=== PATIENT | male | born 1955 | race Caucasian/White ===

== ENCOUNTER 2016-07-11 03:40 | Inpatient (IN) | payer MEDICARE, BC ==
[~2016-07-11] VITALS: Ht 185.4 cm; Wt 91.5 kg
[~2016-07-11 03:40] MED LIST: AMBIEN10 MG PO; ASPIRIN325 MG PO; BAYER CHEWABLE81 MG PO; BRILINTA90 MG PO; BUSPAR 15 MG TA15 MG PO; COREG12.5 MG PO; CUBICIN500 MG IV; DIABETA5 MG PO; GLUCOPHAGE500 MG PO; GLYBURIDE5 MG PO; HYDROCODON-ACE1 EAC7 PO; INVOKANA300 MG PO; IPRAT-ALBUT 0.5-3 ML UPD; JANUVIA100 MG PO; LASIX20 MG PO; LIPITOR40 MG PO; LOTREL 10/20 CA1 CAP PO; METFORMIN HCL500 M1 PO; METOPROLOL TART25 MG; MORPHINE SULFAT30 M4 PO; MUCINEX600 MG PO; NIACIN500 MG PO; NIASPAN500 MG PO; OMNICEF300 MG PO; OXYCODONE HCL10 MG PO; PAXIL20 MG PO; PERCOCET 10/3251 TA1 PO; PRAVACHOL20 MG; PRAVACHOL20 MG PO; PROTONIX 40 MG40 MG IV; PROTONIX40 MG PO; SINGULAIR10 MG PO; TOPROL XL25 MG PO; TRIGLIDE160 MG; TRIGLIDE160 MG PO; VALIUM10 MG PO; ZITHROMAX250 MG PO
[2016-07-11 04:29] LABS: BASOPHILS 0.4 % (0.0-2.0); EOSINOPHILS 3.3 % (0-7); HEMATOCRIT 32.4 % (42.0-54.0); HEMOGLOBIN 10.7 g/dL (13.5-17.5); IMMATURE GRANULOCYTES 0.1 % (0-5); LYMPHOCYTES 15.3 % (15-50); MCH 29.4 pg (26.0-34.0); MEAN PLATELET VOLUME 9.2 fL (7.4-10.4); MONOCYTES 7.2 % (2-11); NEUTROPHILS 73.7 % (40-80); PLATELET COUNT 279 10x3/uL (130-400); RBC 3.64 10x6/uL (4.20-6.10); RDW 14.2 % (11.5-14.5)
[2016-07-11 04:51] LABS: ALBUMIN 2.4 g/dL (3.4-5.0); ANION GAP 13.3 mmol/L (8-16); BILIRUBIN - TOTAL 0.2 mg/dL (0.2-1.3); CALCIUM 8.2 mg/dL (8.5-10.1); CARBON DIOXIDE 29.3 mmol/L (21.0-32.0); CREATININE - SERUM 1.8 mg/dL (0.6-1.3); POTASSIUM - SERUM 3.6 mmol/L (3.5-5.1); PROTEIN - SERUM 5.5 g/dL (6.4-8.2)
[2016-07-11 05:00] LABS: TROPONIN-I 0.022 ng/mL (0.000-0.060)
--- NOTE | 2016-07-11 09:40 | NUR ---
PATIENT IS AWAKE, ALERT AND ORIENTED X'S 4. PATIENT DOES NOT APPEAR TO BE IN DISTRESS, PATIENT IS ON ROOM AIR. PATIENT STATED "I FEEL SHORT OF BREATH, I HAVE BEEN FEELING THIS WAY FOR 2 DAYS. I HAVE NOT BEEN ABLE TO SLEEP BECAUSE I FEEL LIKE I CANNOT BREATH." ASSESSMENT COMPLETED PATIENT HAS EDEMA IS BILATERAL LEGS, MOST PROMINENT IN LEFT LEG. PATIENT REQUESTED PAIN MEDICATION THAT HE TAKES CHRONICALLY FOR LEFT SHOULDER PAIN, AND BACK PAIN. CALLED , NOTIFIED HIM OF PATIENTS REPORTED SOB AND EDEMA IN LEGS, AND NOTIFIED HIM OF PATIENT'S REQUEST FOR PAIN MEDICATION. PUT IN ORDERS.
[2016-07-11 09:48] VITALS: BP 189/83; Ht 185.4 cm; Wt 91.5 kg
--- NOTE | 2016-07-11 10:22 | NUR ---
PATIENT STATED IV WAS ITCHING AND BURNING, TRIED TO FLUSH IV WITH SALINE, THERE WAS RESISTANCE. D/C IV WITH CATH INTACT. STARTED IV TO RIGHT FOREARM 20G, X'S 1 ATTEMPT.
[2016-07-11 11:11] VITALS: BP 180/99
--- NOTE | 2016-07-11 11:28 | NUR ---
PATIENT STATED HE DOES NOT KNOW WHAT MEDICATIONS HE TAKES, BUT THAT HIS IS COMING UP SO SHE CAN BRING THEM. CALLED PATIENT'S MERCEDES, SHE SAID SHE WILL BRING ALL OF HIS MEDS SO THAT WE CAN PUT THE LIST IN THE COMPUTER, THEN SHE WILL TAKE THE MEDS BACK WITH HER.
[2016-07-11 13:06] VITALS: BP 180/82
--- NOTE | 2016-07-11 13:28 | NUR ---
SPOKE WITH REGARDING PATIENT'S PAIN, STATED "I AM NOT GIVING HIM ANYTHING EXCEPT FOR THE NORCO-5 BID FOR NOW BECAUSE OF HIS RESPIRATORY STATUS." NOTIFIED HIM OF PATIENT'S CREATININE LEVEL, HE STATED TO CHANGE THE CTA TO A VQ SCAN. PUT IN ORDER. NOTIFIED HIM OF PATIENT'S BP. HE GAVE ORDERS FOR APPRESOLINE 25MG TID. PUT IN THE ORDER. NOTIFIED PATIENT OF WHAT THE DOCTOR SAID. HE STATED HIS PAIN IS AT AN 8/10 RIGHT NOW. OFFERED PATIENT A HOT OR ICE PACK. PATIENT STATED "NO. IT WILL NOT WORK." PATIENT IS LAYING IN BED. HOB 30 DEGREES.
--- NOTE | 2016-07-11 14:38 | NUR ---
PT TRYING TO GET SOME REST, HE STATES HE DIDN'T SLEEP WELL, NO COMPLAINTS AT THIS TIME, BED LOWEST POSITION, CALL LIGHT IN REACH, WILL CONINUE TO MONITOR
[2016-07-11] MEDS ORDERED: OMEPRAZOLE20 M1 PO (15:01)
[2016-07-11] MEDS ORDERED: FUROSEMIDE20 MG PO (15:04)
[2016-07-11] MEDS ORDERED: BAYER ASPIRIN325 MG PO (15:05)
[2016-07-11] MEDS ORDERED: COREG25 MG PO (15:07)
[2016-07-11 16:22] VITALS: BP 156/62
--- NOTE | 2016-07-11 17:15 | NUR ---
SALMA FROM NUCLEAR MEDICINE STATED "THE PATIENT WAS NOT ABLE TO DO THE VQ SCAN, HE REFUSED BECAUSE HE SAYS HE CANNOT LAY FLAT, HE TRIED AND WAS FEELING VERY SHORT OF BREATH, ALSO HE SAID HE IS SLIGHTLY CLOSTORPHOBIC." CALLED , HE SAID TO GIVE THE PATIENT 1MG OF ATIVAN IV. WENT TO RADIOLOGY DEPARTMENT, PATIENT IN ULTRASOUND GETTING VENOUS DOPPLER DONE. EXPLAINED THE PLAN TO THE PATIENT HE AGREED THAT HE WILL TRY. ADMINSTERED 1MG OF ATIVAN.
[2016-07-11 20:00] VITALS: BP 175/77
--- NOTE | 2016-07-11 20:00 | NUR ---
ASSESSMENT WA FLOWSHEET. IV PATENT RT ARM OF NS AT 75CC'S/HR SITE CLEAR. O2 USED FOR COMFORT ONLY OFF AT THIS TIME NO DISTRESS. EYES CLOSED RESPIRATIONS WITH EASE AND UNLABORED. SR UP X2 CALL LIGHT WITHIN REACH SPOUSE AT BEDSIDE.
--- NOTE | 2016-07-11 21:53 | NUR ---
MEDS GIVEN PER MAR. QJSG=382.HUMALOG INSULIN 10 UNITS GIVEN SUBC PER S/S TO LEFT ARM.
[2016-07-12 00:30] VITALS: BP 196/83
--- NOTE | 2016-07-12 00:37 | NUR ---
EYES CLOSED RESPIRATIONS WITH EASE AND UNLABORED.
[2016-07-12 05:00] VITALS: BP 197/77
[2016-07-12 05:42] LABS: CALCIUM 8.1 mg/dL (8.5-10.1); CARBON DIOXIDE 28.1 mmol/L (21.0-32.0); CHLORIDE - SERUM 106 mmol/L (98-107); CKMB 2.3 U/L (0.0-3.6); CREATININE - SERUM 2.2 mg/dL (0.6-1.3); PRO BNP 26783 pg/mL (0-125); SODIUM 142 mmol/L (136-145); eGFR NON AFRICAN AMERICAN 32 mL/min (90-120)
[2016-07-12 05:50] LABS: CALC OSMOLALITY 298 mosm/kg (275-300); GLUCOSE 223 mg/dL (74-106); POTASSIUM - SERUM 4.5 mmol/L (3.5-5.1); TROPONIN-I < 0.017 ng/mL (0.000-0.060); UREA NITROGEN 39 mg/dL (7-18)
--- NOTE | 2016-07-12 06:54 | NUR ---
C/O BACK AND SHOULDER PAIN RATES PAIN LEVEL #8. NORCO TAB ONE PO GIVEN FOR PAIN CONTROL.
--- NOTE | 2016-07-12 07:20 | NUR ---
PATIENT RECEIVED ALERT IN MID REZA POSITION RESTING QUIETLY. RESPIRATIONS EVEN AND UNLABORED. SIDE RAILS UP X2. BED IN LOW POSITION. CALL LIGHT IN REACH.
--- NOTE | 2016-07-12 08:13 | NUR ---
PATIENT SITTING UP IN CHAIR ALERT. NO SIGNS OF DISTRESS NOTED. SCHEDULED MEDICATION ADMINISTERED. DENIES NEEDS. FAMILY AT BEDSIDE. CALL LIGHT IN REACH.
--- NOTE | 2016-07-12 08:55 | NUR ---
UP AMBULATING IN HALLWAY. NO SIGNS OF DISTRESS NOTED. WILL CONTINUE TO MONITOR
[2016-07-12 09:12] VITALS: BP 192/86
--- NOTE | 2016-07-12 11:35 | NUR ---
PATIENT ALERT IN BED. ACCU CHECK 308. INSULIN PER SLIDING SCALE. NO NEEDS VOICED. SIDE RAILS UP X2. BED IN LOW POSITION. CALL LIGHT IN REACH.
--- NOTE | 2016-07-12 12:33 | NUR ---
Patient Name: RAINER FOUNTAIN Admission Status: ER Accout number: [id number] Admission Date: 07-11-2016 : 1955 Admission Diagnosis: Attending: DEEPA Current LOS: 1 Anticipated DC Date: 07-13-2016 Planned Disposition: Home or Self Care Primary Insurance: MEDICARE A & B Discharge Planning Comments: CM MET WITH PATIENT REGARDING D/C NEEDS AND PLANS. PATIENT STATED HE LIVES WITH HIS MERCEDES AND SHE WILL PICK HIM UP AT DISCHARGE. PATIENT STATED HE HAS 3 STEPS W/RAILS TO ENTER HIS HOME AND NO STAIRS INSIDE. PATIENT IS INDEPENDENT WITH HIS CARE AND HAS NO DME AT HOME. PATIENTS PCP IS DR. MILES AND PHARMACY IS [facility] IN [place]. PATIENT STATED HE HAS NOT HAD HOME HEALTH IN THE PAST AND DOES NOT WANT IT AT DISCHARGE. CM WILL CONTINUE TO FOLLOW PATIENT WITH D/C NEEDS AND PLANS. PCP DR[facility] IN [place]- [phone] MERCEDES () [phone] It Service Continuity Supervisor: Jacque Hernandez Is the patient Alert and Oriented? Yes 0 * How many steps to enter\exit or inside your home? 3 W/RAILS 0 * PCP DR. MILES 0 * Pharmacy [facility] IN [place] 0 * Preadmission Environment Home with Family 0 * ADLs Independent 0 * Equipment None 0 * List name and contact numbers for known caregivers / representatives who currently or will assist patient after discharge: MERCEDES () [phone] 0 * Community resources currently utilized None 0 * Additional services required to return to the preadmission environment? Yes 0 * Can the patient safely return to the preadmission environment? Yes 0 * Has this patient been hospitalized within the prior 30 days at any hospital? No 0 Grand Total: 0
[2016-07-12 12:59] VITALS: BP 193/81
--- NOTE | 2016-07-12 13:10 | NUR ---
PATIENT SITTING UP ON SIDE OF BED ALERT. RESPIRATIONS EVEN AND UNLABORED. IV ROCEPHIN INITIATED. IV TO RIGHT FOREARM PATENT. FLUSHES EASY. NO REDNESS OR INFLAMMATION NOTED. SIDE RAILS UP X2. BED IN LOW POSITION. CALL LIGHT IN REACH.
--- NOTE | 2016-07-12 16:34 | NUR ---
SITTING UP ON SIDE OF BED ALERT. ACCU CHECK 289. INSULIN PER SLIDING SCALE. WELL TOLERATED. DENIES NEEDS. BED IN LOW POSITION. CALL LIGHT IN REACH.
[2016-07-12 17:33] VITALS: BP 172/88
--- NOTE | 2016-07-12 18:35 | NUR ---
PATIENT UP AMBULATING IN HALLWAY WITHOUT ASSIST. NO SIGNS OF DISTRESS NOTED. WILL CONTINUE TO MONITOR.
[2016-07-12 21:17] VITALS: BP 187/77
--- NOTE | 2016-07-13 02:00 | NUR ---
PT IN BED WITH NO DISTRESS. RESPIRATIONS ARE EVEN AND UNLABORED. SIDE RAILS X 2. BED LOW. CALL LIGHT IN REACH.
[2016-07-13 05:52] LABS: BASOPHILS 0.1 % (0.0-2.0); EOSINOPHILS 0 % (0-7); HEMATOCRIT 33.1 % (42.0-54.0); HEMOGLOBIN 10.6 g/dL (13.5-17.5); IMMATURE GRANULOCYTES 0.6 % (0-5); LYMPHOCYTES 8.1 % (15-50); MCV 90.4 fL (80.0-100.0); MONOCYTES 6.2 % (2-11); PLATELET COUNT 299 10x3/uL (130-400); RBC 3.66 10x6/uL (4.20-6.10); RDW 14.3 % (11.5-14.5)
[2016-07-13 06:04] LABS: ANION GAP 13.7 mmol/L (8-16); CALCIUM 8.4 mg/dL (8.5-10.1); CARBON DIOXIDE 24.1 mmol/L (21.0-32.0); CREATININE - SERUM 2.3 mg/dL (0.6-1.3)
[2016-07-13 06:06] LABS: POTASSIUM - SERUM 3.8 mmol/L (3.5-5.1)
[2016-07-13] MEDS ORDERED: OMNICEF300 MG PO (06:46)
[2016-07-13] MEDS ORDERED: BROVANA15 MCG/2 M INH (06:47)
[2016-07-13] MEDS ORDERED: IPRAT-ALBUT 0.5-3 ML UPD (06:47)
[2016-07-13] MEDS ORDERED: VIBRAMYCIN 100100 MG PO (06:47)
[2016-07-13] MEDS ORDERED: HYDRALAZINE HCL50 MG PO (06:48)
[2016-07-13] MEDS ORDERED: FLORAJEN3 CAPS460 MG PO (06:49)
[2016-07-13] MEDS ORDERED: PULMICORT0.5 MG/21 UPD (06:49)
[2016-07-13] MEDS ORDERED: JANUVIA50 MG PO (06:50)
[2016-07-13] MEDS ORDERED: STERAPRED DS 1210 MG PO (06:50)
[2016-07-13] MEDS ORDERED: ZANTAC300 MG PO (06:50)
--- NOTE | 2016-07-13 07:30 | NUR ---
PATIENT RECEIVED UP AMBULATING IN ROOM. NO SIGNS OF DISTRESS NOTED. ANTICIPATING D/C HOME. DENIES NEEDS. BED IN LOW POSITION. CALL LIGHT IN REACH.
--- NOTE | 2016-07-13 08:10 | NUR ---
CM REASSESSMENT NOTE: PATIENT IS DISCHARGING HOME TODAY- IS PRESENT AND WILL DRIVE HIM HOME. PATIENT NEEDS A NEBULIZER FOR DISCHARGE AND HE STATED HE DID HAVE ONE AT HOME TO THE NURSE AND MYSELF. HE HAS REFUSED HOME HEALTH OR ANY OTHER NEEDS FOR DISCHARGE.
--- NOTE | 2016-07-13 08:45 | NUR ---
IV D/C WITH CATH TIP INTACT. SITE COVERED WITH GAUZE AND BANDAID. D/C TEACHING PROVIDED. PATIENT STATES UNDERSTANDING. D/C HOME WITH . AMBULATED OFF UNIT
--- NOTE | 2016-07-14 07:33 | HP ---
PATIENT: RAINER FOUNTAIN JR MEDICAL RECORD: [id number] ACCOUNT: [id number] LOCATION:[id number] : [birth year] ADMISSION DATE: 07/11/16 HISTORY AND PHYSICAL EXAMINATION Admission History and Physical HISTORY OF PRESENT ILLNESS: A 60-year-old male presented to the Emergency Room with 2 days of worsening shortness of breath, worse when lying down. Denies chest pain. Denies palpitations. PAST MEDICAL HISTORY: Chronic back pain, diabetes mellitus, hypertension, previous bypass, history of COPD, has inhalers at home, he is non-oxygen dependent, also a prior history of pneumonia. PAST SURGICAL HISTORY: Cholecystectomy, appendectomy, shoulder surgery, right knee surgery, bilateral carpal tunnel, 2 back surgeries. ALLERGIES: No known drug allergies. CURRENT MEDICATIONS: Amlodipine, benazepril, aspirin, atorvastatin, buspirone, Invokana, fenofibrate, glyburide, metoprolol, niacin, pantoprazole, paroxetine, Ambien, also oxycodone and hydrocodone. SOCIAL HISTORY: Every day smoker. REVIEW OF SYSTEMS: GENERAL: No acute change in weight or appetite. HEENT: No cephalgia, visual changes, tinnitus, epistaxis or dysphagia. CARDIOVASCULAR: Denies chest pain, denies palpitations. PULMONARY: Denies hemoptysis, denies night sweats. Admits progressive shortness of breath for the past 2 days, worse this morning with presentation to the ER. GASTROINTESTINAL: Denies hematemesis, hematochezia or melena. GENITOURINARY: Denies dysuria, denies any change in frequency. MUSCULOSKELETAL: No acute changes, does have a history of chronic back pain. ENDOCRINE: History of diabetes. PHYSICAL EXAMINATION: VITAL SIGNS: Temperature 98.4, blood pressure 180/99, heart rate 78, respirations 18, O2 sats 97% with supplemental O2. HEENT: Head normocephalic, atraumatic. Eyes: Pupils equal, round, reactive to light and accommodation. Extraocular muscles are intact. Conjunctiva was not injected. Ears: Canals patent, TMs are intact. Nose: Nares patent without drainage. Throat: No erythema, no exudates. NECK: Supple. No lymphadenopathy, no JVD. HEART: Regular rate and rhythm. No S3, S4, no rub. LUNGS: Bilateral coarse rhonchi, prolonged expiratory phase. ABDOMEN: Soft, nontender. Bowel sounds all 4 quadrants. EXTREMITIES: Present times 4, no edema. NEUROLOGIC: No focal deficits. Cranial nerves II through XII grossly intact. IMAGING: Chest x-ray reported as unremarkable. EKG showed normal sinus rhythm, prolonged QT, QTc is 507. No comparison immediately available, some nonspecific ST changes with downsloping, abnormal EKG. HISTORY AND PHYSICAL [id number] RAINER FOUNTAIN JR LABORATORY DATA: Glucose is 278. D-dimer is elevated at 0.82. ABG shows a pH of 7.533, pCO2 of 33, pO2 of 98. CBC: White count 3.64, hemoglobin 10.7, hematocrit 32.4, platelets 279. Chemistry shows a sodium of 145, potassium 3.6, chloride 106, bicarbonate 29.3, BUN 24, creatinine 1.8, AST is 21, ALT is 20, alkaline phosphatase 43. CK is 191, troponin is 0.022. ASSESSMENT AND PLAN: 1. Acute onset shortness of breath likely exacerbation of chronic obstructive pulmonary disease with the elevated D-dimer and risk factors such as nicotine dependence and known cardiovascular disease. We will obtain a CTA PE protocol. 2. Mildly elevated creatinine. IV fluids. 3. Diabetes mellitus. Hold metformin. Hold other medications. We will change to a sliding scale intermediate resistance. 4. With the exacerbation of chronic obstructive pulmonary disease, possible underlying pneumonia, we will cover with Rocephin 1 gram q.24 and doxycycline p.o. b.i.d., discontinued the Levaquin from the Emergency Room due to QT prolongation. Supportive care. Tanja. TRANSINT:[id number] Voice Confirmation ID: [id number] DOCUMENT ID: [id number] QUETA CLARK DO at 0733 CC: [id number] DICTATION DATE: 07/11/16 1242 FLIGHT CREW SCHEDULER: 07/11/16 1341 DIS IN 07/13/16 [facility] [address] [place] [address]
--- NOTE | 2016-07-22 09:40 | CN ---
PATIENT NAME:RAINER FOUNTAIN JR MEDICAL RECORD: [id number] : [birth year] LOCATION:[facility] ADMIT DATE: 07/11/16 ACCOUNT: [id number] CONSULTING PHYSICIAN: RILEY AMBROSIO MD REFERRING PHYSICIAN: EMMY MILES DO DATE OF CONSULTATION: 07/11/2016 CONSULT REQUESTING PHYSICIAN: Queta Clark DO REASON FOR CONSULTATION: Acute exacerbation of chronic obstructive pulmonary disease, positive D-dimer, rule out deep venous thrombosis and PE. HISTORY OF PRESENT ILLNESS: Mr. Fountain is a 60-year-old gentleman, very well known to me. The patient is sick for the last few days. He is coughing, wheezing and shortness of breath. According to the patient, he is also having noticed swelling of the left lower extremity. There is no pain. REVIEW OF SYSTEMS: CONSTITUTIONAL: He has generalized body aches and pain. There are no fever or chills. HEENT: There is no sinus congestion. RESPIRATORY: As in history of present illness. CARDIOVASCULAR: Negative. GASTROINTESTINAL: Negative. GENITOURINARY: Negative. Other review of the systems are negative. PAST MEDICAL HISTORY: 1. COPD. 2. Continued smoking, nicotine dependence. 3. Hypertension. 4. Diabetes mellitus type 2. 5. Peripheral neuropathy. 6. Coronary artery disease. PAST SURGICAL HISTORY: 1. Cholecystectomy. 2. Appendectomy. 3. Shoulder surgery. 4. Right knee surgery. 5. History of carpal tunnel syndrome. 6. Status post CABG. ALLERGIES: There are no known drug allergies. PRESENT MEDICATIONS: On Calix was reviewed. PERSONAL AND SOCIAL HISTORY: The patient is still smoking every day almost a pack a day. He is a nondrinker. FAMILY HISTORY: Noncontributory. PHYSICAL EXAMINATION: GENERAL: Now, the patient is lying comfortably in bed. He is not in acute distress. CONSULT REPORT [id number] RAINER FOUNTAIN JR VITAL SIGNS: The blood pressure is 180/82, pulse is 78, respirations 18, temperature 98.4 and SPO2 is 98% on room air. HEENT: Conjunctivae are pink. Sclerae nonicteric. NECK: Supple, no JVD. CHEST: The chest excursion is minimal on both sides. There is wheeze on forceful expiration. HEART: Rhythm regular, normal sound, no murmur. ABDOMEN: Soft, bowel sounds present. No hepatosplenomegaly. RECTAL: Deferred. EXTREMITIES: No cyanosis, no clubbing, no pedal edema. SKIN: Warm, normal turgor. CENTRAL NERVOUS SYSTEM: The patient is awake and alert. There are no obvious cranial nerve abnormality. The gait was not tested. There is pitting edema of the left lower extremity. CHEST RADIOGRAPH: There is hyperinflation, no acute infiltrate. OTHER LABORATORY DATA: CBC: The WBC is 8000, hemoglobin 10.7, hematocrit 33.4 and the platelet count is 279. Chemistry: Sodium 145, potassium is 3.6, BUN is 24 and creatinine 1.8. ABG: The pH is 7.53, pCO2 is 33.3, the pO2 is 98 and bicarbonate is 28. IMPRESSION: 1. Acute exacerbation of chronic obstructive pulmonary disease. 2. Acute tracheobronchitis. 3. Elevated D-dimer, rule out thromboembolism. 4. Tobacco dependence syndrome. 5. Diabetes mellitus type 2. RECOMMENDATIONS: 1. The patient will veterans' counselor to quit smoking. 2. Continue Rocephin and doxycycline. 3. Methylprednisolone IV. 4. Albuterol/ipratropium nebulizer. 5. Start Brovana and budesonide nebulizer. 6. Awaiting the ventilation perfusion scan. 7. Check ultrasound of the lower extremities. Dr. Clark, once again thanks for involving me in the care of Mr. Fountain. TRANSINT:[id number] Voice Confirmation ID: [id number] DOCUMENT ID: [id number] RILEY AMBROSIO MD at 0940 CC: QUETA CLARK DO [id number] DICTATION DATE: 07/11/16 1530 ELEVATORS INSPECTOR: 07/11/16 1633 DIS IN 07/13/16 [facility] [address] [place] [address]
== END 2016-07-13 08:52 | disposition home or self-care (01) | DRG 192 ==
LOC: D.ER 03:40 → D.MS 07:33
PROVIDERS: Emergency Medicine; Family Medicine; ADMIT Family Medicine
DX: J44.1 Chronic obstructive pulmonary disease with (acute) exacerbation (principal); J20.9 Acute bronchitis, unspecified; E11.42 Type 2 diabetes mellitus with diabetic polyneuropathy; E11.22 Type 2 diabetes mellitus with diabetic chronic kidney disease; I12.9 Hypertensive chronic kidney disease with stage 1 through stage 4 chronic kidney disease, or unspecified chronic kidney disease; E11.21 Type 2 diabetes mellitus with diabetic nephropathy; N18.9 Chronic kidney disease, unspecified; D50.9 Iron deficiency anemia, unspecified

== ENCOUNTER 2017-03-20 15:17 | Inpatient (IN) | payer MEDICARE, BC ==
[~2017-03-20 15:17] MED LIST changes: +BAYER ASPIRIN325 MG PO; +BROVANA15 MCG/2 M INH; +COREG25 MG PO; +FLORAJEN3 CAPS460 MG PO; +FUROSEMIDE20 MG PO; +HYDRALAZINE HCL50 MG PO; -HYDROCODON-ACE1 EAC7 PO; +HYDROCODONE-APA1 TAB PO; +JANUVIA50 MG PO; +OMEPRAZOLE20 M1 PO; +PULMICORT0.5 MG/21 UPD; +STERAPRED DS 1210 MG PO; +VIBRAMYCIN 100100 MG PO; +ZANTAC300 MG PO
[2017-03-20 16:25] LABS: BASOPHILS 0.1 % (0-2); EOSINOPHILS 0 % (0-7); HEMATOCRIT 27.6 % (42.0-54.0); HEMOGLOBIN 8.8 g/dL (13.5-17.5); IMMATURE GRANULOCYTES 1.1 % (0-5); LYMPHOCYTES 4.3 % (15-50); MCH 28.4 pg (26.0-34.0); MCHC 31.9 g/dL (31.0-37.0); MEAN PLATELET VOLUME 8.9 fL (7.4-10.4); MONOCYTES 3.8 % (2-11); NEUTROPHILS 90.7 % (40-80); PLATELET COUNT 295 10x3/uL (130-400); RDW 14.4 % (11.5-14.5); WBC 10.2 10x3/uL (4.8-10.8)
[2017-03-20 16:45] LABS: ALBUMIN 2.7 g/dL (3.4-5.0); ALKALINE PHOSPHATASE 73 U/L (46-116); ALT (SGPT) 28 U/L (10-68); BILIRUBIN - TOTAL 0.22 mg/dL (0.2-1.3); CALC OSMOLALITY 313 mosm/kg (275-300); CARBON DIOXIDE 30.1 mmol/L (21.0-32.0); CHLORIDE - SERUM 102 mmol/L (98-107); CREATININE - SERUM 3.9 mg/dL (0.6-1.3); POTASSIUM - SERUM 4.8 mmol/L (3.5-5.1); PROTEIN - SERUM 7.1 g/dL (6.4-8.2); SODIUM 139 mmol/L (136-145); UREA NITROGEN 71 mg/dL (7-18); eGFR NON AFRICAN AMERICAN 17 mL/min (90-120)
[2017-03-20 16:47] LABS: GLUCOSE 360 mg/dL (74-106)
[2017-03-20 16:57] LABS: CKMB 4.8 U/L (0.0-3.6); CREATINE KINASE 457 UL (21-232); PRO BNP 24321 pg/mL (0-125)
[2017-03-20 16:59] LABS: TROPONIN-I < 0.017 ng/mL (0.000-0.060)
[2017-03-20 18:54] LABS: CREATINE KINASE 455 UL (21-232)
--- NOTE | 2017-03-20 19:01 | NUR ---
PT ARRIVED TO FLOOR VIA WHEELCHAIR. PT ON ROOM AIR. IV TO LEFT FA. PT C/O SOB. NON PRODUCTIVE COUGH. ID BAND ON. PT IS A&O. AT BEDSIDE. BED AT LOWEST POSITON. CALL HERNANDEZ IN USE/REACH. SIDE RAILS UP X2. WILL CONTINUE TO MONITOR.
[2017-03-20 19:02] LABS: TROPONIN-I < 0.017 ng/mL (0.000-0.060)
[2017-03-20 20:00] VITALS: BP 187/75
--- NOTE | 2017-03-20 20:00 | NUR ---
SPOKE WITH CARE COORDINATION MANAGER TO OBTAIN MEDS THAT MD HAD ORDERED.
--- NOTE | 2017-03-20 20:11 | NUR ---
MET WITH PATIENT AND . REVIEWED ORDERS. REVIEWED HOME MEDS. PT SAYING THERE ARE MULTIPLE MEDS HE WILL HAVE TO HAVE TO BE ABLE TO SLEEP/BE COMFORTABLE TONIGHT. WILL HAVE TO CONTACT MD DRYING CAN WORKER.
[2017-03-20 20:56] VITALS: BP 187/75; BMI 25.7
--- NOTE | 2017-03-20 21:55 | NUR ---
WHILE CONFERRING WITH PATIENT AND , MEDS WERE PUT IN COMPUTER PER DR MILES. UI SOFTWARE DEVELOPER PULLED ALL MEDS AND PT MEDICATIONS ADMINISTERED AT THIS TIME. FSBS 493, GAVE 20N UNITS OF HUMALOG. PT IS ON SOLUMEDROL PLUS HE IS EATINGA Libratone MEAL. WILL MONITOR.
[2017-03-21] VITALS: BP 153/54
[2017-03-21 04:00] VITALS: BP 192/73
[2017-03-21 05:14] LABS: BASOPHILS 0 % (0-2); EOSINOPHILS 0 % (0-7); HEMATOCRIT 27.2 % (42.0-54.0); HEMOGLOBIN 8.5 g/dL (13.5-17.5); IMMATURE GRANULOCYTES 1.1 % (0-5); LYMPHOCYTES 3.5 % (15-50); MCHC 31.3 g/dL (31.0-37.0); MCV 89.5 fL (80.0-100.0); MEAN PLATELET VOLUME 9.1 fL (7.4-10.4); MONOCYTES 1.5 % (2-11); NEUTROPHILS 93.9 % (40-80); PLATELET COUNT 312 10x3/uL (130-400); RBC 3.04 10x6/uL (4.20-6.10); RDW 14.5 % (11.5-14.5)
[2017-03-21 05:20] LABS: WBC 6.7 10x3/uL (4.8-10.8)
[2017-03-21 05:30] VITALS: BP 192/73
[2017-03-21 05:42] LABS: CALC OSMOLALITY 327 mosm/kg (275-300); CALCIUM 8.7 mg/dL (8.5-10.1); CARBON DIOXIDE 29.2 mmol/L (21.0-32.0); CHLORIDE - SERUM 104 mmol/L (98-107); CREATININE - SERUM 4.1 mg/dL (0.6-1.3); MAGNESIUM - SERUM 2.1 mg/dL (1.8-2.4); PHOSPHOROUS 5.5 mg/dL (2.5-4.9); POTASSIUM - SERUM 5.1 mmol/L (3.5-5.1); SODIUM 142 mmol/L (136-145); UREA NITROGEN 82 mg/dL (7-18); eGFR NON AFRICAN AMERICAN 16 mL/min (90-120)
[2017-03-21 05:47] LABS: GLUCOSE 453 mg/dL (74-106)
--- NOTE | 2017-03-21 07:15 | NUR ---
RECIEVED REPORT ONPATIENT, PATIENT IS ALERT AND ORIENTED AT THIS TIME. PATIENT IS SR ON MONITOR WITH A RATE OF 84. IS AT BEDSIDE. PATIENT DENIES ANY NEEDS OR COMPLAINTS. BED IS LOW AND LOCKED. CALL LIGHT IN REACH. CPOC
--- NOTE | 2017-03-21 07:16 | NUR ---
PT SEEN BY DR MILES. MADE AWARE OF ELEVATED BLOODSUGARS AND THAT HIS SBPS HAVE ALSO BEEN >180 THE LAST SEVERAL READINGS. HAS REVIEWED MEDS AND SAID ONCE PATIENT STARTS HIS ORAL HYPOGLYCEMIC THEN HIS BLOOD SUGARS WILL BE BETTER. REPORT GIVEN TO ONCOMING RN. SHE WILL HAVE TO CLARIFY WITH DR MILES WHAT ORAL HYPOGLYCEMIC HE WAS REFERRING TOO, HE WROTE NO ORDERS TO CONTINUE ANY.
[2017-03-21 08:00] VITALS: BP 182/77
--- NOTE | 2017-03-21 09:00 | NUR ---
MORNING MEDICATIONS GIVEN WITH NO ISSUES. PATIENT DENIES ANY NEEDS. CPOC
--- NOTE | 2017-03-21 10:29 | NUR ---
PATIENT BP- 189/72. 10MG OF HYDRALAZINE GIVEN. WILL MONITOR. CPOC
[2017-03-21 11:16] LABS: CKMB 2.7 U/L (0.0-3.6); CREATINE KINASE 345 UL (21-232); TROPONIN-I 0.023 ng/mL (0.000-0.060)
--- NOTE | 2017-03-21 11:53 | NUR ---
PATIENT FSBS 300, 10 UNITS OF HUMALOG GIVEN.
[2017-03-21 11:58] VITALS: BMI 25.6
--- NOTE | 2017-03-21 12:24 | NUR ---
PATIENT SITTING UP IN CHAIR EATING LUNCH . DENIES ANY NEEDS. CPOC
[2017-03-21 12:45] LABS: CHOL - HDL RATIO 3.5 ratio (2.3-4.9); COMPLEMENT C4 25.3 mg/dL (17.4-52.2); LDL-HDL RATIO 1.9 ratio (1.5-3.5)
[2017-03-21 13:12] LABS: HEMOGLOBIN A1C 8.4 % (4.8-6.0)
--- NOTE | 2017-03-21 14:36 | NUR ---
PATIENT AMBULATING AROUND THE FLOOR, STATED HE WAS GOING TO WALK AROUND BECAUSE HE IS GOING STIR CRAZY IN THE ROOM. CPOC
[2017-03-21 16:00] VITALS: BP 168/68
--- NOTE | 2017-03-21 17:00 | NUR ---
PATIENT SITTING UP IN BED EATING DINNER. DENIES ANY NEEDS. CPOC
--- NOTE | 2017-03-21 17:45 | NUR ---
PATIENT AMBULATING HALLWAYS. CPOC
[2017-03-21 18:26] LABS: APPEARANCE CLEAR (CLEAR); BILIRUBIN NEGATIVE (NEGATIVE); COLOR YELLOW (YELLOW); CREATININE - URINE 38.8 mg/dL (30-125); GLUCOSE 1000 mg/dL (NEGATIVE); KETONE NEGATIVE (NEGATIVE); NITRITE NEGATIVE (NEGATIVE); PRO/CRE RATIO URINE 15.7 mg/g; PROTEIN 1+ mg/dL (NEGATIVE); UROBILINOGEN NORMAL (NORMAL)
--- NOTE | 2017-03-21 18:37 | NUR ---
PATIENT FSBS WAS CRITICAL, WAITING ON LAB TO DRAW FOR RESULT. CPOC
[2017-03-21 19:00] VITALS: BP 181/77
--- NOTE | 2017-03-21 19:00 | NUR ---
PAGED , TO NOTIFIY OF CRITICAL GLUCOSE. CPOC
--- NOTE | 2017-03-21 19:16 | NUR ---
SPOKE WITH DR GUILLEN, HE ORDERED TO GIVE 20 UNITS OF HUMALOG NOW, AND TO RECHECK IN 1 HOUR, AND FOLLOW SLIDING SCALE. HE ALSO ORDERED TO CHANGE TO FSBS Q4HOUR. WILL CHANGE AND PASS ON IN REPORT. CPOC
--- NOTE | 2017-03-21 19:39 | NUR ---
RECEIVED REPORT, WILL ASSUME CARE OF PT, PT RECEIVING BREATHING TREATMENT, BED IS LOW, SRX2, CALL LIGHT IN REACH, AT BEDSIDE, WILL CONTINUE PLAN OF CARE
[2017-03-21 19:55] LABS: CKMB 3.5 U/L (0.0-3.6); CREATINE KINASE 426 UL (21-232); TROPONIN-I 0.019 ng/mL (0.000-0.060)
--- NOTE | 2017-03-21 21:13 | NUR ---
SPOKE WITH DR MARX BS WAS 522 WAS TOLD TO GIVE 30UNITS AND RECHECK 1 HR, UNTIL UNDER 300, FOLLOW SLIDING SCALE
--- NOTE | 2017-03-21 21:58 | NUR ---
BLOODSUGAR 509- PT WANTS TO WAIT ON INSULIN UNTIL NEXT CHECK
[2017-03-22] VITALS: BP 137/58
[2017-03-22 04:00] VITALS: BP 177/69
--- NOTE | 2017-03-22 07:05 | NUR ---
RECEIVED REPORT. ASSUMED CARE OF PATIENT. PATIENT SITTING UP TO CHAIR AT BEDSIDE. ALERT/ORIENTED. RESP EVEN AND UNLABORED. NO DISTRESS. CALL LIGHT WITHIN REACH. NO DISTRESS.
--- NOTE | 2017-03-22 07:20 | NUR ---
PT RESTING IN BED. BLOOD SUGAR FINALLY DOWN AND HAS RESPONDED TO THE INSULIN GIVEN. CPOC.
[2017-03-22 08:00] VITALS: BP 196/84
--- NOTE | 2017-03-22 11:13 | NUR ---
PATIENT UP AMBULATING IN ROOM. DENIES NEEDS. RESP EVEN AND UNLABORED. NO DISTRESS.
[2017-03-22 11:24] VITALS: BP 164/78
--- NOTE | 2017-03-22 11:50 | NUR ---
FSBS 250. 8 UNITS HUMALOG ADMINISTERED AT THIS TIME. NO DISTRESS.
--- NOTE | 2017-03-22 11:59 | NUR ---
NEW ORDER FOR EPOGEN RECEIVED. NOT AVAILABLE FROM [facility]. AWAITING PHARMACY TO BRING MEDICATION TO UNIT.
[2017-03-22] MEDS ORDERED: FLUTICASONE PRO16 GM NASAL (12:01)
[2017-03-22] MEDS ORDERED: OMEPRAZOLE40 MG PO (12:02)
[2017-03-22] MEDS ORDERED: SINGULAIR10 MG PO (12:02)
[2017-03-22] MEDS ORDERED: LOPRESSOR25 MG PO (12:14)
[2017-03-22] MEDS ORDERED: CRESTOR10 MG PO (12:15)
[2017-03-22] MEDS ORDERED: NORVASC10 MG PO (12:16)
[2017-03-22] MEDS ORDERED: MONODOX100 MG PO (12:19)
[2017-03-22] MEDS ORDERED: PREDNISONE20 MG PO (12:21)
[2017-03-22 13:04] LABS: % SATURATION 28 % (15-55); IRON 69 ug/dl (35-150); TOTAL IRON BIND CAPACITY 246 ug/dl (260-445); UNSAT IRON BIND CAPACITY 177 ug/dl (150-375)
[2017-03-22 13:16] LABS: ANA REFLEX - DBL STRANDED DNA <1 IU/mL (0-9); ANA REFLEX - DIRECT Negative (Negative)
[2017-03-22 13:17] LABS: ANION GAP 12.7 mmol/L (8-16); CALCIUM 8.3 mg/dL (8.5-10.1); CARBON DIOXIDE 28.3 mmol/L (21.0-32.0)
[2017-03-22 13:44] LABS: ERYTHROCYTE SEDIMENTATION RATE 65 mm/hr (0-20)
[2017-03-22 14:22] LABS: SPE - A/G RATIO 0.9 (0.7-1.7); SPE - ALBUMIN 2.8 g/dL (2.9-4.4); SPE - ALPHA-1 GLOBULIN 0.3 g/dL (0.0-0.4); SPE - BETA GLOBULIN 1.1 g/dL (0.7-1.3); SPE - GAMMA GLOBULIN 0.7 g/dL (0.4-1.8); SPE - M-SPIKE Not Observed g/dL (Not Observed); SPE - TOTAL PROTEIN 5.9 g/dL (6.0-8.5)
[2017-03-22 16:00] VITALS: BP 170/76
--- NOTE | 2017-03-22 16:34 | NUR ---
FSBS 301. 12 UNITS HUMALOG ADMINISTERED PER SLIDING SCALE.
[2017-03-22 21:28] VITALS: BP 161/58
[2017-03-23 02:07] VITALS: BP 170/75
--- NOTE | 2017-03-23 03:00 | NUR ---
PATIENT UNABLE TO SLEEP, UP WALKING AROUND IN ROOM. DENIES ANY PAIN, DIZZINESS OR DISTRESS. CALL LIGHT WITHIN REACH.
[2017-03-23 04:15] LABS: BASOPHILS 0 % (0-2); EOSINOPHILS 0.1 % (0-7); HEMATOCRIT 26.6 % (42.0-54.0); HEMOGLOBIN 8.5 g/dL (13.5-17.5); IMMATURE GRANULOCYTES 1.3 % (0-5); LYMPHOCYTES 13.6 % (15-50); MCH 28.3 pg (26.0-34.0); MCV 88.7 fL (80.0-100.0); MEAN PLATELET VOLUME 8.9 fL (7.4-10.4); MONOCYTES 7.7 % (2-11); NEUTROPHILS 77.3 % (40-80); PLATELET COUNT 291 10x3/uL (130-400); RDW 14.9 % (11.5-14.5); WBC 9.5 10x3/uL (4.8-10.8)
[2017-03-23 05:01] LABS: ALBUMIN 2.1 g/dL (3.4-5.0); BILIRUBIN - TOTAL 0.14 mg/dL (0.2-1.3); CALCIUM 8.3 mg/dL (8.5-10.1); CREATININE - SERUM 3.9 mg/dL (0.6-1.3); PROTEIN - SERUM 5.7 g/dL (6.4-8.2)
--- NOTE | 2017-03-23 05:20 | NUR ---
PT RESTING COMFORTABLY AT THIS TIME, EYES CLOSED, RESPIRATIONS EVEN AND UNLABORED. CONTINUE TO MONITOR CLOSELY.
[2017-03-23 05:25] VITALS: BP 122/74
--- NOTE | 2017-03-23 07:15 | NUR ---
REPORT RECEIVED. RR EVEN AND UNLABORED. CONSTRUCTION MGR AT BEDSIDE OBTAINING VS. PT DENIES NEEDS AT THIS TIME. ASSESSMENT PERFORMED, WILL CTM.
[2017-03-23 08:00] VITALS: BP 175/55
--- NOTE | 2017-03-23 08:24 | NUR ---
PTS BP THIS MORNING IS 175/55. WILL GIVE MORNING BP MEDS AND RECHECK BP IN 1-2 HRS. IF IT IS STILL HIGH, WILL GIVE PRN HYDRALIZINE. WILL CTM.
--- NOTE | 2017-03-23 10:35 | NUR ---
PTS BP IS CURRENTLY 172/71. WILL GIVE PRN HYDRALIZINE AND CTM.
--- NOTE | 2017-03-23 11:30 | NUR ---
PTS BP IS NOW 149/63 SINCE PRN BP MED. WILL CTM.
[2017-03-23 12:00] VITALS: BP 149/63
--- NOTE | 2017-03-23 14:10 | NUR ---
PT C/O ACID REFLUX. REPORTS NOT GETTING HIS ZANTAC AT NIGHT. WILL CALL DR. DOTY REGARDING PT CONCERN. WILL CTM.
--- NOTE | 2017-03-23 14:24 | NUR ---
SPOKE TO DR. DOTY REGARDING PTS ZANTAC NOT BEING ON EMAR. GAVE VERBAL RESTART HOME DOSE. WILL CTM.
--- NOTE | 2017-03-23 18:30 | NUR ---
PT RESTING QUIELTY, RR EVEN AND UNLABORED. PT DENIES NEEDS AT THIS TIME. WILL GIVE REPORT ON PT CONDITION FOR THE DAY.
--- NOTE | 2017-03-23 20:30 | NUR ---
PT AWAKE, ALERT, ORIENTED, WANTING TO BE SL SINCE HIS IV ANTIBIOTIC IS FINISHED. PT DENIES ANY NEEDS. FAMILY AT BEDSIDE. CONTINUE TO MONITOR CLOSELY.
--- NOTE | 2017-03-23 20:56 | NUR ---
PT WALKING WITH SPOUSE TO [employer]. WILL NOTIFY ME WHEN HE RETURNS TO HIS ROOM FOR HIS 21:00 MEDICATIONS AND INSULIN.
[2017-03-23 22:06] VITALS: BP 149/52
--- NOTE | 2017-03-23 23:43 | NUR ---
24 HOUR URINE STARTED @ 23:00 03/23/17 PER ORDER. PT AND NOTIFIED, EDUCATION PROVIDED ON 24 HOUR URINE, PURPOSE, COLLECTION, AND QUESTIONS ANSWERED. FIRST URINE HAS BEEN DISCARDED. PT AND VERBALLY STATE THEY UNDERSTAND AND WILL LET US KNOW WHEN PT VOIDS IN URINAL SO WE CAN TRANSFER IT INTO THE 24 HOUR URINE ORANGE COLLECTION JUG.
[2017-03-24 01:54] VITALS: BP 168/88
[2017-03-24 05:04] LABS: BASOPHILS 0 % (0-2); EOSINOPHILS 0 % (0-7); HEMATOCRIT 29.2 % (42.0-54.0); HEMOGLOBIN 9.3 g/dL (13.5-17.5); IMMATURE GRANULOCYTES 2.8 % (0-5); LYMPHOCYTES 4.8 % (15-50); MCH 28.4 pg (26.0-34.0); MCHC 31.8 g/dL (31.0-37.0); MEAN PLATELET VOLUME 9.3 fL (7.4-10.4); MONOCYTES 3.5 % (2-11); NEUTROPHILS 88.9 % (40-80); RBC 3.28 10x6/uL (4.20-6.10); RDW 14.8 % (11.5-14.5); WBC 10.1 10x3/uL (4.8-10.8)
[2017-03-24 05:08] LABS: ANION GAP 16.4 mmol/L (8-16); CALCIUM 7.9 mg/dL (8.5-10.1); CARBON DIOXIDE 22.8 mmol/L (21.0-32.0); CREATININE - SERUM 3.7 mg/dL (0.6-1.3); POTASSIUM - SERUM 4.2 mmol/L (3.5-5.1)
[2017-03-24 05:10] LABS: PLATELET COUNT 353 10x3/uL (130-400)
--- NOTE | 2017-03-24 06:10 | NUR ---
IV TO LEFT FOREARM INFILTRATED WHEN ADMINISTERING PRN HYDRALAZINE. IV REMOVED WITH CATH TIP INTACT.
[2017-03-24 06:17] VITALS: BP 197/80
--- NOTE | 2017-03-24 07:36 | NUR ---
PT LAYING TO LEFT SIDE WITH FAMILY MEMBER AT BEDSIDE. DENIES NEEDS WILL CONT TO MONITOR
[2017-03-24 08:00] VITALS: BP 164/77
[2017-03-24 08:19] LABS: FOLATE (FOLIC ACID) - SERUM 6.5 ng/mL (>3.0)
--- NOTE | 2017-03-24 08:30 | NUR ---
STUDENT NURSE SITED PT PIV TO LEFT FA 20 G X1 STICK. SALINE LOCKED DSNG ADHERED TO SKIN SWAB CAPS IN PLACE.
--- NOTE | 2017-03-24 09:42 | NUR ---
24 HOUR URINE IS IN PROGRESS, BEING KEPT ON ICE. WILL BE READY TO COLLECT AT 2300 TONIGHT.
[2017-03-24 11:19] LABS: HEPATITIS C ANTIBODY <0.1 (0.0-0.9)
[2017-03-24 12:00] VITALS: BP 158/70
[2017-03-24 13:14] LABS: ERYTHROPOIETIN 112.6 mIU/mL (2.6-18.5)
--- NOTE | 2017-03-24 13:26 | NUR ---
PT SITTING UP ON SIDE OF BED. FAMILY AT BEDSIDE. WILL CONT TO MONITOR
[2017-03-24 16:00] VITALS: BP 169/73
--- NOTE | 2017-03-24 19:56 | NUR ---
PT LYING IN BED WITH UPDRAFT MASK IN PLACE FROM RT. FAMILY IS AT BEDSIDE. PT DENIES ANY NEEDS. I HAVE ASKED PT TO NOTIFY ME ANY TIME HE LEAVES THIS FLOOR. PT AND HAVE AGREED TO DO SO. DR. DOMINGUEZ IS IN ROOM NOW WITH PT. NO NEEDS AT THIS TIME. CONTINUE TO MONITOR CLOSELY.
[2017-03-24 20:10] VITALS: BP 134/74
[2017-03-25 00:34] VITALS: BP 190/77
--- NOTE | 2017-03-25 00:49 | NUR ---
PT CAME TO ME C/O EPISTAXIS AND REQUESTING TO HAVE HIS B/P CHECKED. 190/77 WAS HIS B/P AT THAT TIME. PRN HYDRALAZINE 10MG IV GIVEN X 1 ORDERED. I DID GIVE PT A TURKEY SANDWICH AND CARTON OF MILK PER PTS REQUEST WELL AFTER ADMINSTERING PTS INSULIN @ 00:00. PTS NOSE BLEED HAS STOPPED WITHOUT INTERVENTION FROM ME. PT IS IN NO ACUTE DISTRESS. WILL CONTINUE TO MONITOR PT CLOSELY.
[2017-03-25 01:15] LABS: CREATININE - URINE 41.9 mg/dL (30-125)
[2017-03-25 01:17] LABS: PROTEIN - URINE 535.7 mg/dL (0.0-11.9)
[2017-03-25 01:28] LABS: CREATININE - SERUM 3.7 mg/dL (0.6-1.3)
--- NOTE | 2017-03-25 03:16 | NUR ---
PT AWAKE, ALERT, ORIENTED, WALKING AROUND UNIT TO GET A CUP OF COFFEE. PT HAS NOT HAD ANY MORE NOSE BLEEDS AND DENIES ANY NEEDS AT THIS TIME. CONTINUE TO MONITOR PT CLOSELY.
--- NOTE | 2017-03-25 03:47 | NUR ---
PT DECLINED A SNACK AFTER CHECKING HIS FSBS OF 114. PT STATES HE FEELS WNL AND DOES NOT NEED ANYTHING AT THIS TIME. CONTINUE TO MONITOR CLOSELY.
[2017-03-25 04:32] VITALS: BP 173/73
[2017-03-25 05:55] LABS: BASOPHILS 0 % (0-2); EOSINOPHILS 0.1 % (0-7); HEMATOCRIT 27.3 % (42.0-54.0); HEMOGLOBIN 8.6 g/dL (13.5-17.5); IMMATURE GRANULOCYTES 3.7 % (0-5); LYMPHOCYTES 3.9 % (15-50); MCH 27.7 pg (26.0-34.0); MCHC 31.5 g/dL (31.0-37.0); MCV 88.1 fL (80.0-100.0); MEAN PLATELET VOLUME 9.1 fL (7.4-10.4); MONOCYTES 5.4 % (2-11); NEUTROPHILS 86.9 % (40-80); PLATELET COUNT 286 10x3/uL (130-400); RDW 14.7 % (11.5-14.5); WBC 10.7 10x3/uL (4.8-10.8)
[2017-03-25 06:32] LABS: ANION GAP 15.2 mmol/L (8-16); CALCIUM 8.1 mg/dL (8.5-10.1); CARBON DIOXIDE 23.1 mmol/L (21.0-32.0); CREATININE - SERUM 3.7 mg/dL (0.6-1.3); MAGNESIUM - SERUM 1.7 mg/dL (1.8-2.4); PHOSPHOROUS 5.3 mg/dL (2.5-4.9); POTASSIUM - SERUM 4.3 mmol/L (3.5-5.1)
--- NOTE | 2017-03-25 07:32 | NUR ---
PT LAYING FLAT IN BED SLEEPING NO S/S DISTRESS NOTED RR EVEN AND UNLABORED WILL CONT TO MONITOR
[2017-03-25] MEDS ORDERED: OMNICEF300 MG PO (07:33)
[2017-03-25] MEDS ORDERED: VIBRAMYCIN 100100 MG PO (07:34)
[2017-03-25] MEDS ORDERED: GLIMEPIRIDE4 MG PO (07:37)
[2017-03-25 08:56] VITALS: BP 164/68
[2017-03-25] MEDS ORDERED: HYDRALAZINE HC100 MG PO (09:40)
--- NOTE | 2017-03-25 10:23 | NUR ---
WENT OVER DC PAPERWORK WITH PT PT VERBALIZES UNDERSTANDING, PT WAS GIVEN AND TAUGHT ABOUT CKD, DIALYSIS, AND DIET PER THEIR REQUEST. DC PIV WITH CATH TIP INTACT DC TELE AND RETURNED TO CHARGE MASTER SPECIALIST. PT WHEELED HIM OUT TO HER CAR.
[2017-03-25 11:18] LABS: SPE - A/G RATIO 0.9 (0.7-1.7); SPE - ALBUMIN 2.5 g/dL (2.9-4.4); SPE - ALPHA-1 GLOBULIN 0.2 g/dL (0.0-0.4); SPE - ALPHA-2 GLOBULIN 0.9 g/dL (0.4-1.0); SPE - BETA GLOBULIN 0.9 g/dL (0.7-1.3); SPE - GAMMA GLOBULIN 0.7 g/dL (0.4-1.8); SPE - M-SPIKE Not Observed g/dL (Not Observed); SPE - TOTAL PROTEIN 5.2 g/dL (6.0-8.5)
[2017-03-25 11:18] LABS: UPE RAND - ALBUMIN 53.8 % (()); UPE RAND - ALPHA 2 GLOBULIN 8.3 % (())
--- NOTE | 2017-04-01 08:19 | DS ---
PATIENT:RAINER FOUNTAIN JR :51 MEDICAL RECORD: [id number] DISCHARGE SUMMARY ADMISSION DATE: 03/20/17 DISCHARGE DATE: 03/25/17 DATE OF ADMISSION: 03/21/2017 DATE OF DISCHARGE: 03/25/2017 ADMISSION DIAGNOSES: Diabetes, anemia, chronic obstructive pulmonary disease, uncontrolled hypertension, ygcpu-oe-kalwdyx renal failure. DISCHARGE DIAGNOSES: Evndp-ol-yndbpya renal failure, hypertension, diabetes, exacerbation of chronic obstructive pulmonary disease, anemia. CONSULTS: Nephrology, hematology, pulmonology. PROCEDURES: The patient had an unremarkable echocardiogram. HOSPITAL COURSE: The patient was admitted to the Emergency Room with worsening shortness of breath, had been seen by pulmonology, he had signs of exacerbation of COPD and CHF as well as worsening renal failure, was afebrile, was hypertensive, and creatinine had bumped to 4.1. Consults were made, testing is in progress, recommendations for outpatient renal biopsy when the patient stabilizes. Patient had a steroid-induced diabetes, medications started, adjusted. The patient has been cleared for discharge and further workup as outpatient by ____ specialist. The patient is anxious to go home and followup is arranged. The patient is discharged in stable condition. Agree with assessment by specialists. PHYSICAL EXAMINATION: VITAL SIGNS ON DISCHARGE: Temp 98.8, blood pressure is 173/73, heart rate 72, respirations 18, O2 sats 95% on room air. GENERAL: Alert, oriented, no distress. Again, anxious to go home and will follow up with Dr. Wagner within the next week. We will follow up with pulmonology, nephrology, and cardiology. DISCHARGE MEDICATIONS: Per med rec. Please see chart for details of this complex case. TRANSINT:[id number] Voice Confirmation ID: [id number] DOCUMENT ID: [id number] QUETA CLARK DO at 0819 CC: [id number] DICTATION DATE: 03/25/17 0745 ENERGY SCHEDULER: 03/25/17 1016 DIS IN 03/25/17 [facility] [address] [place] [address]
--- NOTE | 2017-04-04 13:13 | EC ---
PATIENT:RAINER FOUNTAIN JR DATE OF SERVICE: 03/20/17 SEX: M MEDICAL RECORD: [id number] DATE OF : 51 LOCATION:D.M2 D.210 AGE OF PATIENT: 61 ADMISSION DATE: 03/20/17 REFERRING PHYSICIAN: INTERPRETING PHYSICIAN: NGUYEN CRAWFORD MD ECHOCARDIOGRAM REPORT ECHO CHARGES 4 ECHO COMPLETE CLINICAL DIAGNOSIS: CHF ECHOCARDIOGRAPHIC MEASUREMENTS (adult normal given) AC root (d.<3.7cm) 3.8 cm LV Septum d (<1.2 cm> 1.3 cm Valve Excursion 2.2 cm LV Septum (systole) 1.9 cm Left Atria (s.<4.0cm> 2.8 cm LVPW d(<1.2cm) 1.2 cm RV (d.<2.3cm) 2.5 cm LVPW (sytole) 2.3 cm LV diastole(<5.6CM) 6.8 cm MV E-F(>70mm/sec) cm LV systole 3.5 cm LVOT Diameter 2.1 cm MV exc.(>10mm) cm Est.ejection fraction (50-75%) % Pericardial Effusion N DOPPLER: LVIT cm/sec A 109 cm/sec E 135 cm/sec LA cm/sec RVSP 20.2 mmHg LVOT 135 cm/sec AOP1/2T m/s Asc. Ao 189 cm/sec RVOT 73.0 cm/sec RA cm/sec PA 116 cm/sec AV Gradient Peak 14. mmHg AV Mean 7.2 mmHg AV Area 2.2 cm MV Gradient Peak 13.0 mmHg MV Mean 3.5 mmHg MV Area cm COMMENTS: Repair Operator: Usama [place] Continuous Improvement Specialist: 3 Dr. De La Cruz TAPE# PACS DATE OF SERVICE: 03/21/2017 Adequate 2D echo, color flow, spectral Doppler, and M-mode. LVH present. LV internal dimensions are normal. Wall motion is normal. EF is greater than 55%. Aortic valve is tricuspid. No stenosis by Doppler interrogation. The left atrium is normal. Mitral valve shows no prolapse. Trace MR. Right-sided chamber is grossly normal. Trace TR. TRANSINT:[id number] Voice Confirmation ID: [id number] DOCUMENT ID: [id number] 03/25/2017 Edited to correct date of service, dmm. ECHOCARDIOGRAM REPORT [id number] RAINER FOUNTAIN JR, GREGORY A MD at 1313 CC: [id number] DICTATION DATE: 03/22/17 1353 TOWERMAN: 03/22/17 1445 DIS IN 03/25/17 [facility] [address] [place] [address]
== END 2017-03-25 10:24 | disposition home or self-care (01) | DRG 291 ==
LOC: D.ER 15:17 → D.M2 18:04 → D.SDCHOLD 03-21 14:36 → D.M2 03-21 14:38
PROVIDERS: Family Medicine; Internal Medicine Nephrology; Legal Medicine; ADMIT Family Medicine
DX: I13.0 Hypertensive heart and chronic kidney disease with heart failure and stage 1 through stage 4 chronic kidney disease, or unspecified chronic kidney disease (principal); I50.23 Acute on chronic systolic (congestive) heart failure; J44.1 Chronic obstructive pulmonary disease with (acute) exacerbation; N17.9 Acute kidney failure, unspecified; J44.0 Chronic obstructive pulmonary disease with (acute) lower respiratory infection; J98.11 Atelectasis; J20.9 Acute bronchitis, unspecified; N18.9 Chronic kidney disease, unspecified; E11.22 Type 2 diabetes mellitus with diabetic chronic kidney disease; Z79.4 Long term (current) use of insulin; E11.40 Type 2 diabetes mellitus with diabetic neuropathy, unspecified; I25.10 Atherosclerotic heart disease of native coronary artery without angina pectoris; K21.9 Gastro-esophageal reflux disease without esophagitis; J30.9 Allergic rhinitis, unspecified; D63.1 Anemia in chronic kidney disease; D50.9 Iron deficiency anemia, unspecified; F17.200 Nicotine dependence, unspecified, uncomplicated; E78.5 Hyperlipidemia, unspecified; Z95.5 Presence of coronary angioplasty implant and graft; Z95.1 Presence of aortocoronary bypass graft

== ENCOUNTER → 2017-04-01 12:10 | Outpatient (CLI) | payer MEDICARE, BC ==
[2017-03-21 11:58] VITALS: BMI 25.6
[~2017-04-01 12:10] MED LIST changes: +ATARAX 25 MG TA25 MG PO; +CRESTOR10 MG PO; +DIPROLENE AF 0.50 GM TOPICAL; +FLUTICASONE PRO16 GM NASAL; +GLIMEPIRIDE4 MG PO; +HYDRALAZINE HC100 MG PO; +LOPRESSOR25 MG PO; +METOLAZONE5 MG PO; +MONODOX100 MG PO; +NORVASC10 MG PO; +OMEPRAZOLE40 MG PO; +PREDNISONE20 MG PO; +PULMICORT0.5 MG/21 INH; +ULTRAM50 MG PO
== END | disposition home or self-care (01) ==
LOC: D.US 12:10
DX: I12.9 Hypertensive chronic kidney disease with stage 1 through stage 4 chronic kidney disease, or unspecified chronic kidney disease (principal)

== ENCOUNTER 2017-04-26 07:21 | Day surgery (SDC) | payer MEDICARE, BC ==
[~2017-04-26] VITALS: Ht 190.5 cm; Wt 86.5 kg
[~2017-04-26 07:21] MED LIST changes: -ATARAX 25 MG TA25 MG PO; -DIPROLENE AF 0.50 GM TOPICAL; -METOLAZONE5 MG PO; -PULMICORT0.5 MG/21 INH; -ULTRAM50 MG PO
[2017-04-26 08:21] LABS: BASOPHILS 0.9 % (0-2); EOSINOPHILS 1.9 % (0-7); HEMATOCRIT 28.4 % (42.0-54.0); HEMOGLOBIN 8.8 g/dL (13.5-17.5); IMMATURE GRANULOCYTES 2.2 % (0-5); LYMPHOCYTES 10.9 % (15-50); MCH 28.1 pg (26.0-34.0); MCV 90.7 fL (80.0-100.0); MEAN PLATELET VOLUME 8.5 fL (7.4-10.4); MONOCYTES 8.5 % (2-11); NEUTROPHILS 75.6 % (40-80); PLATELET COUNT 322 10x3/uL (130-400); RBC 3.13 10x6/uL (4.20-6.10); WBC 7.8 10x3/uL (4.8-10.8)
[2017-04-26 08:40] LABS: ANION GAP 12.6 mmol/L (8-16); CALCIUM 8.6 mg/dL (8.5-10.1); CARBON DIOXIDE 27.9 mmol/L (21.0-32.0); POTASSIUM - SERUM 5.5 mmol/L (3.5-5.1)
[2017-04-26 09:03] LABS: APTT 29.8 SECONDS (22.8-39.4); INR 0.94 (0.85-1.17); PROTIME 12.4 SECONDS (11.6-15.0)
[2017-04-26] MEDS ORDERED: PULMICORT0.5 MG/21 INH (10:30)
[2017-04-26] MEDS ORDERED: BROVANA15 MCG/2 M INH (10:30)
[2017-04-26] MEDS ORDERED: COREG25 MG PO (10:32)
[2017-04-26] MEDS ORDERED: FLUTICASONE PRO16 GM NASAL (10:35)
[2017-04-26] MEDS ORDERED: TRIGLIDE160 MG PO (10:35)
[2017-04-26] MEDS ORDERED: FUROSEMIDE20 MG PO (10:36)
[2017-04-26 11:40] VITALS: Ht 190.5 cm; Wt 86.5 kg
--- NOTE | 2017-04-26 13:45 | NUR ---
ANESTHESIA BLOCK DONE TO LEFT ARM, SEE ANESTHESIA NOTES
[2017-04-26] MEDS ORDERED: ULTRAM50 MG PO ×2 (14:13→15:43)
--- NOTE | 2017-04-26 16:00 | NUR ---
DISCHARGE INSTRUCTIONS REVIEWED WITH PATIENT AND SPOUSE. DISCHARGED HOME VIA WHEELCHAIR WITH SPOUSE
--- NOTE | 2017-05-07 15:06 | OP ---
PATIENT NAME: RAINER FOUNTAIN JR MEDICAL RECORD: [id number] :51 LOCATION:[facility] ADMISSION DATE: SURGEON: IRENE EDMONDSON MD DATE OF OPERATION: 04/26/2017 REFERRING PHYSICIAN: Dr. Padilla. PREOPERATIVE DIAGNOSIS: Chronic kidney disease stage V. POSTOPERATIVE DIAGNOSIS: Chronic kidney disease stage V. SURGEON: Irene Edmondson MD OPERATION PERFORMED: Creation of a Janak-type proximal radial artery to median antebrachial vein AV fistula with runoff via the cephalic vein in the arm. PREOPERATIVE NOTE: Mr. Fountain is a 61-year-old white male with hypertension, diabetes, and chronic kidney disease in anticipation of his requiring hemodialysis, he is brought to the operating room at this time with the intent of creating an AV fistula in his left arm. Preoperative vein mapping demonstrated a patent cephalic vein, but with multiple branches and it was thought to probably not be a good conduit for fistula. The basilic vein may be better. The patient's operation was conducted under nerve block and general anesthesia per STAFF SERVICES MANAGER, and the nerve block hopefully will provide vasodilatation and an ultrasound exam in the OR may be very helpful in telling us where to create the fistula. DESCRIPTION OF PROCEDURE: Under anesthesia in supine position, the patient's left arm was prepped and draped in a sterile manner. Indeed, he did get good vasodilatation from his block, I applied a [place] drain as a proximal venous tourniquet and topical nitroglycerin paste in addition, I examined him with a duplex ultrasound and noted that the cephalic vein was patent from the wrist to the deltopectoral groove, but there were an excessive number of tributaries and I noted that the median antebrachial vein which was part of the runoff from the cephalic at the wrist was large and was located in close apposition to the proximal radial artery at about the junction of the upper and middle thirds of the forearm. Above this, the median antebrachial vein, median yuryital vein and cephalic vein were all patent and I elected to do a proximal radial artery fistula. I made a longitudinal incision in the forearm exposing the vein and dissecting it from surrounding structures. The deep or perforating vein was ligated with 2-0 Vicryl and closed with a clip and the vein dissected distally to bifurcation. Deeper dissection then exposed the proximal radial artery. The 2 vessels were occluded and controlled and approximated side to side with 2 doubly looped Silastic tapes. The vein was opened at a distance of about 6 mm and I attempted to pass a coronary artery dilator distally, but this was not very successful and I did not want to be any more aggressive than I had been for fear of injuring the proximal vein and so I abandoned further attempts at vein valve disruption in order to provide a bidirectional outflow. The vein was flushed proximally with heparinized saline and treated with topical papaverine. A corresponding arteriotomy was made and the radial artery was flushed proximally and distally with heparinized saline and a rfjy-gz-rpae anastomosis was then performed with running 7-0 Prolene. Upon completion of the anastomosis and release of the occluding loops, excellent flow was established immediately in the fistula proximally and in the radial artery above and below the anastomosis. The suture line was hemostatic. There was no wound bleeding. The OPERATIVE REPORT [id number] RAINER FOUNTAIN JR wound was irrigated with Ancef/gentamicin solution and then closed with interrupted inverted 3-0 Vicryl and running intracuticular 4-0 Monocryl and Dermabond glue. It was dressed with Maxorb Ag, Tegaderm and Cavilon skin prep. The patient was awakened and taken to the recovery room in stable condition with a good thrill and bruit over the new fistula. PLAN: He will be allowed to go home today to continue his same medications and diet. The patient takes Brilinta chronically. He has been off of it for several days preop and indeed there was no unusual coagulopathic bleeding for which I am thankful. I will have him go back on his Brilinta tomorrow. He is to return to see me in my office for wound check and dressing change next week. I have left a prescription for tramadol 50 mg 20 tablets, he can take one p.o. q.4 hours p.r.n. for pain. TRANSINT:[id number] Voice Confirmation ID: [id number] DOCUMENT ID: [id number] IRENE EDMONDSON MD at 1506 CC: JESSIE PADILLA MD [id number] DICTATION DATE: 04/26/17 1432 MAINTENANCE ENGINEER OIL FIELD: 04/26/17 1512 [facility] 04/26/17 [facility] [address] [place] [id number]
== END 2017-04-26 16:00 | disposition home or self-care (01) ==
LOC: D.OPS 07:21
PROVIDERS: Internal Medicine Nephrology
DX: E11.22 Type 2 diabetes mellitus with diabetic chronic kidney disease (principal); I12.0 Hypertensive chronic kidney disease with stage 5 chronic kidney disease or end stage renal disease; N18.5 Chronic kidney disease, stage 5; Z01.812 Encounter for preprocedural laboratory examination

== ENCOUNTER 2017-06-08 14:53 | Inpatient (IN) | payer MEDICARE, BC ==
[~2017-06-08] VITALS: Ht 190.5 cm; Wt 89.3 kg
--- NOTE | ~2017-06-08 | HEMODYNAMI ---
PATIENT:RAINER FOUNTAIN JR MEDICAL RECORD: [id number] : 51 LOCATION:[address] ADMISSION DATE: 06/08/17 Generatedon:06/10/20179:50 Patient name: RAINER FOUNTAIN Patient #: [id number] SSN: : Date of study: 06/10/2017 Page: Of Hemodynamic Procedure Report Patient Data Patient Demographics Procedure consent was obtained First Name: RAINER Gender: Male Last Name: АЛЕКСАНДР Suffix: [facility] Initial: Javi : 1955 Patient #: [id number] Age: 61 year(s) Race: Additional ID: [id number] Contact details Address: [address] [place] [address] State: [place] City: [place] Zip code: [address] Past Medical History History of disease Date Diagnosis Comments CAD Allergies: No known allergies Admission Admission Data Admission Date: 06/08/2017 Admission Time: 20:20 Room #: [facility]9 Weight (lbs.): 198.42 Weight (kg.): 90 Lab Results Lab Result Date: 06/10/2017 Lab Result Time: 8:00 Biochemistry Name Units Result Min Max BUN mg/dl 63 --(----)-* 7 18 Creatinine mg/dl 4.6 --(----)-* 0.6 1.3 CBC Name Units Result Min Max Hemoglobin g/dl 10.3 *-(----)-- 13.5 17.5 Procedure Procedure Types Cath Procedure Diagnostic Procedure LHC Coronaries w/Grafts PCI Procedure AMI/SVG/WOOL PRESSER PTCA or Stent SVG-BMS/MARIAM Initial Miscellaneous Procedures Moderate Sedation up to 15 minutes Procedure Description Procedure Date Procedure Date: 06/10/2017 Procedure Start Time: 9:30 Procedure End Time: 9:49 Procedure Staff Name Function Brandon Cassidy MD Performing Physician Manas Ibarra RT Monitor Vicky Abrams RT Scrub Brien Smyth RN Nurse Procedure Data Cath Procedure Fluoroscopy Diagnostic fluoroscopy Total fluoroscopy Time: 4.8 time: 4.8 min min Diagnostic fluoroscopy Total fluoroscopy dose: 373 dose: 373 mGy mGy Contrast Material Contrast Material Type Amount (ml) Isovue 300 67 Entry Location Entry Primary Successful Side Size Upsize Upsize Entry Closure Succes sful Closure Location (Fr) 1 (Fr) 2 (Fr) Remarks Device Remarks Femoral Right 5 Fr 6 Fr Exoseal artery Short Estimated blood loss: 10 ml Diagnostic catheters Device Type Used For End Catheter Placement MULTIPACK JL 4.0 5Fr Procedure catheter MULTIPACK 3DRC 5Fr Procedure catheter DIAGNOSTIC AR 1 MOD 5Fr Procedure catheter ([id number]) Procedure Complications No complications Procedure Medications Medication Administration Route Dosage Oxygen NC 2 l/min Lidocaine 2% added to field 20 Heparin Flush Bag added to field 2 bags (1000units/500ml NS) 0.9% NaCl I.V. 100 ml/hr Versed I.V. 1 mg Fentanyl I.V. 50 mcg Versed I.V. 1 mg Fentanyl I.V. 50 mcg Versed I.V. 1 mg Fentanyl I.V. 50 mcg Versed I.V. 1 mg Fentanyl I.V. 50 mcg Heparin Bolus I.V. 4000 units Integrilin (Bolus I.V. 7.9 ml 2mg/ml) Brilinta P.O. 180 mg Hemodynamics Rest HGB: 10.3 (g/dl) Heart Rate: 74 (bpm) Snapshots Pre Cath Intra NCS Post Cath Vital Signs Time Heart Resp SPO2 etCO2 NIBP (mmHg) Rhythm Pain Sedation Rate (ipm) (%) (mmHg) Status Level (bpm) 9:11:18 74 14 100 36.8 190/94(162) NSR 0 (11) 10(A) , No pain 9:15:51 73 16 98 37.6 200/92(150) NSR 0 (11) 10(A) , No pain 9:20:19 72 17 98 40.6 186/88(144) NSR 0 (11) 10(A) , No pain 9:24:41 70 16 97 45.1 167/83(131) NSR 0 (11) 9(A) , No pain 9:29:07 68 15 98 15.7 164/77(126) NSR 0 (11) 9(A) , No pain 9:33:31 68 14 97 36 160/74(134) NSR 0 (11) 9(A) , No pain 9:37:54 67 16 97 0 158/73(128) NSR 0 (11) 9(A) , No pain 9:42:08 66 15 97 35.3 149/73(119) NSR 0 (11) 9(A) , No pain 9:46:26 68 15 96 40.6 149/74(111) NSR 0 (11) 10(A) , No pain Medications Time Medication Route Dose Verified Delivered Reason Notes Effectiveness by by 9:09:55 Oxygen NC 2 Brandon Buffie used for l/min Khanh Smyth RN procedure 9:10:02 Lidocaine 2% added 20ml Brandon Brandon for local to vial Khanh Cassidy MD anesthetic field 9:10:09 Heparin Flush added 2 Brandon Brandon used for Bag to bags Khanh Cassidy MD procedure (1000units/500ml field NS) 9:10:35 0.9% NaCl I.V. 100 Brandon Buffie Per physician ml/hr Khanh Smyth RN 9:21:33 Versed I.V. 1 mg Brandon Buffie for sedation Khanh Smyth RN 9:21:38 Fentanyl I.V. 50 Brandon Buffie for sedation mcg Khanh Smyth RN 9:24:12 Versed I.V. 1 mg Brandon Buffie for sedation Khanh Smyth RN 9:24:16 Fentanyl I.V. 50 Brandon Buffie for sedation mcg Khanh Smyth RN 9:27:34 Versed I.V. 1 mg Brandon Buffie for sedation Khanh Smyth RN 9:27:38 Fentanyl I.V. 50 Brandon Buffie for sedation mcg Khanh Smyth RN 9:32:57 Versed I.V. 1 mg Brandon Buffie for sedation Khanh Smyth RN 9:33:01 Fentanyl I.V. 50 Brandon Buffie for sedation mcg Khanh Smyth RN 9:38:24 Heparin Bolus I.V. 4000 Brandon Buffie for verifie d units Khanh Smyth RN anticoagulation with dr cassidy 9:40:24 Integrilin I.V. 7.9 Brandon Buffie for wasted (Bolus 2mg/ml) ml Khanh Smyth RN antiplatelet 2.1 ml therapy of vial 9:49:12 Brilinta P.O. 180 Brandon Tesfaye for mg Khanh Smyth RN antiplatelet therapy Procedure Log Time Note 8:08:07 Time tracking: Regular hours 8:08:11 Plan of Care:Hemodynamics will remain stable., Cardiac rhythm will remain stable., Comfort level will be maintained., Respiratory function will remain adequate., Patient/ family verbilizes understanding of procedure., Procedure tolerated without complication., Recovers from procedure without complications.. 8:08:43 Lab Result : BUN 59 mg/dl 8::43 Lab Result : Creatinine 4.2 mg/dl 8::43 Lab Result : Hemoglobin 8.1 g/dl 8:08:56 Dr. Cassidy is aware of labs. 8:14: Lab Result : BUN 63 mg/dl 8:14:10 Lab Result : Hemoglobin 10.3 g/dl 8:14:10 Lab Result : Creatinine 4.6 mg/dl 8:45:55 Manas Ibarra RT(R) sent for patient. Start room use. 9:06:43 Patient received from PCU to CCL 3 Alert and oriented. Tansferred to table in Supine position. 9:06:44 Warm blankets applied, and darion hugger turned on for patient comfort. 9:06:45 Correct patient and procedure confirmed by team. 9:06:46 Signed procedure consent form obtained from patient. 9:06:47 ECG and BP/O2 sat monitors applied to patient. 9:09:55 Oxygen 2 l/min NC was administered by Brien Smyth RN; used for procedure; 9:10:02 Lidocaine 2% 20ml vial added to field was administered by Brandon Cassidy MD; for local anesthetic; 9:10:03 Vital chart was started 9:10:09 Heparin Flush Bag (1000units/500ml NS) 2 bags added to field was administered by Brandon Cassidy MD; used for procedure; 9:10:35 0.9% NaCl 100 ml/hr I.V. was administered by Brien Smyth RN; Per physician; 9:15:46 Baseline sample Acquired. 9:15:50 Rhythm: sinus rhythm 9:15:53 Full Disclosure recording started 9:16:02 H&P Date Dictated: 06/08/2017 Within 30 days and on chart.. 9:16:03 Pre-procedure instructions explained to patient. 9:16:03 Pre-op teaching completed and patient verbalized understanding. 9:16:04 Family in waiting room. 9:16:06 Patient NPO since Midnight. 9:16:07 Is the patient allergic to Iodine/contrast media? No. 9:16:09 Is patient on blood thinner?No 9:16:11 Patient diabetic? Yes. 9:16:12 If diabetic: On Metformin? No 9:16:14 Previous problem with sedation/anesthesia? No ? 9:16:15 Snore? Yes 9:16:16 Sleep apnea? No 9:16:17 Deviated septum? No 9:16:17 Opens mouth fully? Yes 9:16:18 Sticks out tongue? Yes 9:16:20 Airway obstruction? No ? 9:16:21 Dentures? No ? 9:16:24 Pre procedure: right dorsailis pedis pulse 1+ Palpable, but thready & weak; easily obliterated 9:16:27 Patient pain scale 0/10 ?. 9:16:40 PT HAS A RESERVE LEFT ARM 9:16:47 IV patent on arrival in right forearm with 0.9% NaCl at O. 9:16:49 Lab results completed and on chart. 9:16:52 Right groin area was prepped with chlora-prep and draped in sterile fashion 9:16:53 Alarms reviewed by R. N. 9:16:53 Sharps counted by scrub and verified by R.N. 9:16:57 Use device set Femoral Dx 9:17:00 Tegaderm 4 x 4 ([id number]) opened to sterile field. 9:17:01 ACIST Manifold (31495) opened to sterile field. 9:17:01 ACIST Hand Control (88606) opened to sterile field. 9:17:03 ACIST Syringe (76602) opened to sterile field. 9:17:04 Bag Decanter (2002S) opened to sterile field. 9:17:04 Medline Cath Pack ([id number]) opened to sterile field. 9:17:04 SHEATH 5FR [place] ([id number]) opened to sterile field. 9:17:05 DIAGNOSTIC WIRE .035 260cm J wire (996915) opened to sterile field. 9:17:08 DIAGNOSTIC Multipack 5Fr catheter set (HC7297) opened to sterile field. 9:17:09 PERCUTANEOUS ENTRY 19GA needle opened to sterile field. 9:18:51 --------ALL STOP TIME OUT------ 9:18:52 Final Timeout: patient, procedure, and site verified with staff and physician. All members of the team are in agreement. 9:18:55 Right groin site verified by team. 9:18:58 Physical assessment completed. ASA score P 2 - A patient with mild systemic disease as per Brandon Cassidy MD. 9:19:01 Sedation plan: IV Moderate Sedation Medication:Versed, Fentanyl 9:21:33 Versed 1 mg I.V. was administered by Brien Smyth RN; for sedation; 9:21:38 Fentanyl 50 mcg I.V. was administered by Brien Smyth RN; for sedation; 9:24:12 Versed 1 mg I.V. was administered by Brien Smyth RN; for sedation; 9:24:16 Fentanyl 50 mcg I.V. was administered by Brien Smyth RN; for sedation; 9:27:34 Versed 1 mg I.V. was administered by Brien Smyth RN; for sedation; 9:27:38 Fentanyl 50 mcg I.V. was administered by Brien Smyth RN; for sedation; 9:30:51 Procedure started. 9:30:54 Local anesthetic to right femoral artery with Lidocaine 2% by Brandon Cassidy MD.INITIAL ACCESS ONLY 9:31:57 Patient Weight : 198.42 lbs 9:32:57 Versed 1 mg I.V. was administered by Brien Smyth RN; for sedation; 9:33:01 Fentanyl 50 mcg I.V. was administered by Brien Smyth RN; for sedation; 9:33:12 A 5 Fr sheath was inserted into the Right Femoral artery 9:33:36 A MULTIPACK JL 4.0 5Fr catheter was advanced over the wire and used for Procedure. 9:33:48 LCA angiography performed. 9:33:54 Catheter removed. 9:34:41 A MULTIPACK 3DRC 5Fr catheter was advanced over the wire and used for Procedure. 9:35:49 URENA to LAD angiography performed. 9:36:07 RCA angiography performed. 9:36:22 Catheter removed. 9:36:29 A DIAGNOSTIC AR 1 MOD 5Fr catheter ([id number]) was advanced over the wire and used for Procedure. 9:38:24 Heparin Bolus 4000 units I.V. was administered by Brien Smyth RN; for anticoagulation; verified with dr cassidy 9:39:00 SVG to Diag angiography performed. 9:39:26 Skip graft to distal CIRC. 9:39:41 Catheter removed. 9:40:24 Integrilin (Bolus 2mg/ml) 7.9 ml I.V. was administered by Brien Smyth RN; for antiplatelet therapy; wasted 2.1 ml of vial 9:41:42 INFLATOR Merit BasixCompak (JB7931) opened to sterile field. 9:41:43 SHEATH 6FR [place] (PDR366) opened to sterile field. 9:41:43 WHISPER 190cm wire ([id number]) opened to sterile field. 9:41:49 GUIDE 6FR AR 2.0 catheter ([id number]) opened to sterile field. 9:42:02 Sheath upsized to a 6 Fr Short. 9:42:10 6 Fr AR 2 guide catheter was inserted over the wire 9:42:17 Study PCI Site: Vein Graft Diag1 has 70% stenosis. 9:42:20 ACC Pre-intervention JOJO Flow is 3. 9:42:23 Whisper wire advanced. 9:42:45 Wire advanced across lesion. 9:43:47 Inflation Number: 1 A MAGGIE RX 4.0 x 22 stent ([id number]) was prepped and advanced across the Aorta Left -> 1st Diag. The stent was deployed at 17 RONEL for 0:10 (min:sec). 9:44:12 ACC Post-intervention JOJO Flow is 3. 9:44:13 Stent catheter was removed intact over wire. 9:44:13 Wire removed. 9:44:14 Guide catheter removed. 9:44:25 EXOSEAL 6Fr (EX600) opened to sterile field. 9:44:42 Sheath removed intact; hemostasis achieved with Exoseal to the Right Femoral artery. 9:44:44 Procedure ended.(Physican Out) 9:44:49 Fluoroscopy time 04.80 minutes. 9:44:54 Flurop Dose total: 373 9:44:54 Fluoroscopy dose: 373 mGy 9:45:04 Contrast amount:Isovue 300 67ml. 9:45:06 Sharps counted by scrub and verified by R.N. 9:45:07 Insertion/operative site no bleeding no hematoma. 9:45:10 Post-op/insertion site Right Femoral artery dressed using a 4 x 4 and Tegaderm. 9:45:11 Post Procedure Pulses reassessed and unchanged 9:45:13 Post-procedure physical assessment completed. ASA score P 2 - A patient with mild systemic disease as per Brandon Cassidy MD. 9:45:16 Post procedure rhythm: unchanged. 9:45:18 Estimated blood loss: 10 ml 9:45:19 Post procedure instruction explained to patient.Patient verbalizes understanding. 9:45:20 Patient needs reinforcement of post procedure teaching. 9:45:37 Procedure type changed to Cath procedure, Diagnostic procedure, LHC, Coronaries w/Grafts, PCI procedure, AMI/SVG/WOOL PRESSER PTCA or Stent, SVG-BMS/MARIAM Initial, Miscellaneous Procedures, Moderate Sedation up to 15 minutes 9:45:38 Procedure and supply charges have been captured, reviewed, submitted and are correct. 9:45:41 Procedure Complication : No complications 9:49:12 Brilinta 180 mg P.O. was administered by Brien Smyth RN; for antiplatelet therapy; 9:49:30 Vital chart was stopped 9:49:31 See physician's report for complete and final results. 9:49:32 Report given to PCU. 9:49:35 Patient transfered to PCU with Bed. 9:49:37 Procedure ended. 9:49:37 Full Disclosure recording stopped 9:49:46 End room use (Document Last) Intervention Summary Intervention Notes Time ActionType Lesion and Equipment Used Action# Pressure Duration Attributes 9:43:47 Place stent Aorta Left MAGGIE RX 4.0 x 1 17 00:10 -> 1st Diag 22 stent ([id number]) Device Usage Item Name Manufacture Quantity Catalog Hospital Part Current [facility] Lot# / Number Charge Number Stock Stock Serial# Code Tegaderm 4 x 4 3M 1 1626W [id number] [id number] 403268 5 (1626W) ACIST Manifold Acist 1 87463 604645 023559 927881 5 (26351) Medical Systems Inc ACIST Hand Acist 1 20601 504307 519788 342195 5 Control Medical (46599) Systems Inc ACIST Syringe Acist 1 33005 810632 514142 477586 20 (59648) Medical Systems Inc Bag Decanter Microtek 1 2001S 420540 69682 470014 5 (2001S) Medical Inc. Medline Cath Cardinal 1 [id number] 541143 77818 181827 5 Pack Health ([id number]) SHEATH 5FR Terumo 1 KDL182 125862 377983 538737 40 [place] (SDO798) DIAGNOSTIC [facility] 1 587860 784113 862977 781200 30 WIRE .035 260cm J wire (974442) DIAGNOSTIC Cardinal 1 KH9768 453192 83660 811589 30 Multipack 5Fr Health catheter set (GR6878) PERCUTANEOUS Cook Medical 1 M37867 760607 784766 5 ENTRY 19GA needle MULTIPACK JL Cardinal 1 933321 5 4.0 5Fr Health catheter MULTIPACK 3DRC Cardinal 1 166958 5 5Fr catheter Health DIAGNOSTIC AR Cardinal 1 [id number] 997143 523623 668751 15 1 MOD 5Fr Health catheter (816171F) INFLATOR Merit Merit 1 SS6974 684864 181046 332872 15 BasixGigzolo Medical (RP0311) SHEATH 6FR Terumo 1 DVJ865 867236 704162 327354 40 [place] (NRC827) WHISPER 190cm Arauz 1 [id number] 244570 193534 413681 5 wire Vascular ([id number]) GUIDE 6FR AR Medtronic 1 [id number] 123843 51418 042924 1 2.0 catheter (TQ9ES91) MAGGIE RX 4.0 x Medtronic 1 [id number] 158966 4090797 857034 5 [id number] 22 stent ([id number]) EXOSEAL 6Fr Cardinal 1 EX600 296978 304469 491513 10 (EX600) Health Signature Audit Alice Stage Time Signature Unsigned Intra-Procedure 06/10/2017 Manas Ibarra 9:49:58 AM RT(R) Signatures Monitor : Manas Ibarra RT Signature : Date : Time : [facility] [address] [place] [place] [address]
--- NOTE | ~2017-06-08 | CN ---
PATIENT NAME:RAINER FOUNTAIN JR MEDICAL RECORD: [id number] : 51 LOCATION:. D.2129 ADMIT DATE: 06/08/17 ACCOUNT: [id number] CONSULTING PHYSICIAN: MK RODRIGUEZ MD REFERRING PHYSICIAN: GASPER THEODORE MD DATE OF CONSULTATION: 06/09/2017 CARDIOLOGY CONSULT ADMITTING DIAGNOSES: 1. Angina. 2. Coronary artery disease. 3. Status post coronary bypass graft surgery. 4. Renal insufficiency. 5. Anemia. 6. Hypertension. 7. Hyperlipidemia. HISTORY OF PRESENT ILLNESS: This is a gentleman who is status post coronary artery bypass graft surgery 6 years ago, began having chest pain, chest discomfort, compatible with angina along with shortness of breath. He does have renal insufficiency, creatinine is 4.2. He has been prepped with a graft for possible dialysis in the future. REVIEW OF SYSTEMS: The patient reports easy bruising but reports no swollen glands. The patient reports no fever, no night sweats, no significant weight gain, no significant weight loss. No significant exercise tolerance. The patient reports no dry eyes, no irritation, no vision change. Patient reports no difficulty hearing and no ear pain. Patient reports no frequent nose bleeds or nose and sinus problems. Patient reports on arm pain on exertion. No shortness of breath while lying down. No history of heart murmur. Patient reports no cough, no wheezing or coughing up blood. Patient reports no abdominal pain, no vomiting. Normal appetite. No diarrhea and not vomiting blood. No nausea and no constipation. Patient reports no incontinence. No difficulty urinating. No hematuria. No increased frequency. Patient reports no muscle aches. No weakness, no arthralgias, no back pain. No swelling of the extremities. Patient reports no abnormal mole, no jaundice, no rashes. Reports no loss of consciousness. No weakness and no numbness. No seizures, dizziness, or headaches. The patient reports no depression, no sleep disturbance, feeling safe in a relationship and no alcohol abuse. Patient reports on fatigue. Reports no runny nose or sinus pressure. No itching, no hives, and no frequent sneezing. PHYSICAL EXAMINATION: GENERAL APPEARANCE: Well-nourished, well-developed, appears stated age. Level of distress, comfortable. PSYCHIATRIC: Mental status, alert, normal affect. Orientation, oriented to time, place and person. EYES: Lids and conjunctiva, noninjected. No discharge, no pallor. ENT: Lips, teeth, gums, normal dentition. Oropharynx, no cyanosis, no pallor. NECK: Carotid arteries, bilateral normal upstroke, no bruits, no thrills. JUGULAR VEINS: No jugular venous pressure or distention. CERVICAL LYMPH NODES: Nontender, nonenlarged. THYROID: Not enlarged. Nontender. No nodules. LUNGS: Respiratory effort, unlabored. CONSULT REPORT [id number] АЛЕКСАНДРRAINER Klein JR CHEST: Normal curvature. No thoracic deformity. No chest wall tenderness. Percussion, resonant. Auscultation, clear. No wheezes, no rales, no rhonchi. CARDIOVASCULAR: Precordial exam, nondisplaced. No heaves or pericardial thrills. Rate and rhythm, regular. Heart sounds, normal S1, normal S2. No S3, no gallop, no rub. Systolic murmur, not heard. Diastolic murmur, not heard. EXTREMITIES: No cyanosis, no edema. Peripheral pulses, full and equal in all extremities, except as noted. No bruits appreciated. ABDOMEN: Soft, nondistended. Normal aorta. No bruit. Nontender. No masses. Liver, nontender, no hepatomegaly. Spleen, nontender, no splenomegaly. MUSCULOSKELETAL: No joint tenderness. No joint swelling. No erythema. NEUROLOGICAL: Normal gait, normal strength, normal tone. SKIN: Warm and dry. OVERALL IMPRESSION: Chest pain compatible with angina, increasing unstable fashion, most likely he has recurrent hemodynamically significant coronary artery disease. We will transfuse with 2 units of blood today. Proceed with coronary angiography tomorrow, hopefully after transfusion and volume expansion, he will be able to undergo cardiac catheterization with minimal contrast and no increase in his BUN and creatinine. TRANSINT:[id number] Voice Confirmation ID: [id number] DOCUMENT ID: [id number] MK RODRIGUEZ MD at 1323 CC: [id number] DICTATION DATE: 06/09/17917 SCALE MODEL MAKER: 06/09/17 1305 DIS IN 06/11/17 [facility] [address] [facility] [place] [address]
--- NOTE | ~2017-06-08 | OP ---
PATIENT NAME: RAINER FOUNTAIN JR MEDICAL RECORD: [id number] :51 LOCATION:D.M2 D.2129 ADMISSION DATE:06/08/17 SURGEON: MK RODRIGUEZ MD DATE OF OPERATION: 06/10/2017 PROCEDURES: 1. PTCA stent vein graft to circumflex and RCA in a skipped fashion. 2. Left heart catheterization. 3. Vein graft angiography. 4. URENA angiography. 5. Selective coronary angiography. INDICATION: Unstable angina and coronary artery disease. PROCEDURE IN DETAIL: After informed consent was obtained and after detailed explanation of risks, benefits as well as alternative therapies, the patient elected to proceed with angiogram and angioplasty. The right femoral area is prepped and draped in normal sterile fashion. The right femoral artery was cannulated via modified Seldinger technique with placement of 6-Belizean sheath. All catheters exchanged through this sheath. FINDINGS: Left ventriculogram was not performed secondary to dye conservation due to renal insufficiency. SELECTIVE CORONARY ANGIOGRAPHY: 1. Left main with no significant angiographic disease. 2. Left anterior descending is totally occluded in mid vessel. 3. URENA to the distal LAD is widely patent, distal LAD is widely patent. 4. The left circumflex has previously placed stent is widely patent. There is no restenosis. No disease else nelson at the left circumflex or its branches. 5. Right coronary artery is totally occluded. 6. There is a vein graft in a skipped fashion from what appears to be an LAD diagonal to the circumflex. This vein graft has a 70% stenosis with ulceration in the proximal part of the vessel, this is a marked change from previous angiography. No other vein grafts are present. PTCA stent of saphenous vein graft. The stent used is 4.0 x 22 mm Sanket. Result was 0% residual stenosis. OVERALL IMPRESSION: Successful percutaneous transluminal coronary angioplasty stent of his only vein graft that is a skip graft appears to be from going to an LAD diagonal as well as the distal circumflex, this has gone from 70% ulcerated stenosis to 0% residual stenosis. TRANSINT:[id number] Voice Confirmation ID: [id number] DOCUMENT ID: [id number] MK RODRIGUEZ MD at 1324 CC: [id number] DICTATION DATE: 06/10/17 0950 STAVE MILL HAND: 06/10/17 1247 DIS IN 06/11/17 [facility] [address] [place] [address]
[~2017-06-08 14:53] MED LIST changes: +PULMICORT0.5 MG/21 INH; +ULTRAM50 MG PO
[2017-06-08 16:16] LABS: BASOPHILS 0.5 % (0-2); EOSINOPHILS 7.3 % (0-7); HEMATOCRIT 26.3 % (42.0-54.0); HEMOGLOBIN 8.3 g/dL (13.5-17.5); IMMATURE GRANULOCYTES 0.8 % (0-5); LYMPHOCYTES 15.8 % (15-50); MCH 29.2 pg (26.0-34.0); MCHC 31.6 g/dL (31.0-37.0); MCV 92.6 fL (80.0-100.0); MEAN PLATELET VOLUME 8.7 fL (7.4-10.4); MONOCYTES 8.1 % (2-11); NEUTROPHILS 67.5 % (40-80); PLATELET COUNT 295 10x3/uL (130-400); RBC 2.84 10x6/uL (4.20-6.10); RDW 15.8 % (11.5-14.5); WBC 6.3 10x3/uL (4.8-10.8)
[2017-06-08 16:33] LABS: APPEARANCE CLEAR (CLEAR); COLOR YELLOW (YELLOW)
[2017-06-08 16:34] LABS: BILIRUBIN NEGATIVE (NEGATIVE); GLUCOSE 100 mg/dL (NEGATIVE); KETONE NEGATIVE (NEGATIVE); NITRITE NEGATIVE (NEGATIVE); PROTEIN 1+ mg/dL (NEGATIVE); UROBILINOGEN NORMAL (NORMAL)
[2017-06-08 16:40] LABS: ALBUMIN 2.4 g/dL (3.4-5.0); ANION GAP 11.1 mmol/L (8-16); BILIRUBIN - TOTAL 0.15 mg/dL (0.2-1.3); CALCIUM 8.4 mg/dL (8.5-10.1); CARBON DIOXIDE 25.5 mmol/L (21.0-32.0); CREATININE - SERUM 4.2 mg/dL (0.6-1.3); POTASSIUM - SERUM 5.6 mmol/L (3.5-5.1); PROTEIN - SERUM 6.6 g/dL (6.4-8.2)
[2017-06-08 18:18] LABS: LIPASE 131 U/L (73-393)
[2017-06-08 18:26] LABS: TROPONIN-I < 0.017 ng/mL (0.000-0.060)
[2017-06-09] MEDS ORDERED: OMEPRAZOLE40 MG PO (00:08)
[2017-06-09] MEDS ORDERED: METOLAZONE5 MG PO (00:08)
[2017-06-09] MEDS ORDERED: ATARAX 25 MG TA25 MG PO (00:10)
[2017-06-09] MEDS ORDERED: DIPROLENE AF 0.50 GM TOPICAL (00:11)
[2017-06-09 01:29] VITALS: BP 177/65
[2017-06-09 04:12] VITALS: Ht 190.5 cm; Wt 89.3 kg
[2017-06-09 06:04] VITALS: BP 139/66
[2017-06-09 08:37] VITALS: BP 148/54
[2017-06-09 09:06] LABS: HEMATOCRIT 25.4 % (42.0-54.0); HEMOGLOBIN 8.1 g/dL (13.5-17.5); LYMPHOCYTES 17.1 % (15-50); MCH 28.9 pg (26.0-34.0); MCHC 31.9 g/dL (31.0-37.0); MCV 90.7 fL (80.0-100.0); MEAN PLATELET VOLUME 8.3 fL (7.4-10.4); NEUTROPHILS 69.1 % (40-80); RDW 15.4 % (11.5-14.5); WBC 6.4 10x3/uL (4.8-10.8)
[2017-06-09 09:08] LABS: PLATELET COUNT 355 10x3/uL (130-400)
[2017-06-09 09:24] LABS: ANION GAP 14.6 mmol/L (8-16); CALCIUM 8.5 mg/dL (8.5-10.1); CARBON DIOXIDE 25.1 mmol/L (21.0-32.0); CREATININE - SERUM 4.2 mg/dL (0.6-1.3); MAGNESIUM - SERUM 1.6 mg/dL (1.8-2.4); PHOSPHOROUS 5.9 mg/dL (2.5-4.9); POTASSIUM - SERUM 5.7 mmol/L (3.5-5.1)
[2017-06-09 12:43] VITALS: BP 139/41
[2017-06-09 16:46] VITALS: BP 150/69
[2017-06-09 22:44] VITALS: BP 183/82
[2017-06-10 00:59] VITALS: BP 172/69
[2017-06-10 05:27] VITALS: BP 143/74
[2017-06-10 07:24] LABS: BASOPHILS 0.9 % (0-2); EOSINOPHILS 8.2 % (0-7); LYMPHOCYTES 17.9 % (15-50); MCH 27.8 pg (26.0-34.0); MCHC 31.3 g/dL (31.0-37.0); MCV 88.9 fL (80.0-100.0); MEAN PLATELET VOLUME 8.7 fL (7.4-10.4); MONOCYTES 7.5 % (2-11); NEUTROPHILS 64.5 % (40-80); PLATELET COUNT 357 10x3/uL (130-400); RDW 18.8 % (11.5-14.5); WBC 7.6 10x3/uL (4.8-10.8)
[2017-06-10 07:26] LABS: ANION GAP 14.6 mmol/L (8-16); CALCIUM 8.8 mg/dL (8.5-10.1); CARBON DIOXIDE 24.9 mmol/L (21.0-32.0); CREATININE - SERUM 4.6 mg/dL (0.6-1.3); POTASSIUM - SERUM 5.5 mmol/L (3.5-5.1)
[2017-06-10 08:08] LABS: HEMATOCRIT 32.9 % (42.0-54.0); HEMOGLOBIN 10.3 g/dL (13.5-17.5)
[2017-06-10 08:52] VITALS: BP 179/78
[2017-06-10 12:07] VITALS: BP 148/60
[2017-06-10 18:02] VITALS: BP 170/65
[2017-06-10 20:07] VITALS: BP 157/71
[2017-06-11] VITALS: BP 161/67
[2017-06-11 05:21] VITALS: BP 158/58
[2017-06-11 07:51] VITALS: BP 141/86
[2017-06-11 11:43] VITALS: BP 136/82
[2017-06-11 13:28] LABS: ANION GAP 14.2 mmol/L (8-16); CALCIUM 8.1 mg/dL (8.5-10.1); CARBON DIOXIDE 25.4 mmol/L (21.0-32.0); CREATININE - SERUM 4.6 mg/dL (0.6-1.3); POTASSIUM - SERUM 5.6 mmol/L (3.5-5.1)
[2017-06-11 16:31] VITALS: BP 140/84
[2017-06-15 16:12] LABS: AEROBE ID Final report (())
== END 2017-06-11 18:10 | disposition home or self-care (01) | DRG 247 ==
LOC: D.ER 14:53 → D.M2 20:20
PROVIDERS: Emergency Medicine; Internal Medicine; Internal Medicine Interventional Cardiology; Internal Medicine Nephrology; Physician Assistant
PROC: B2121ZZ Fluoroscopy of Single Coronary Artery Bypass Graft using Low Osmolar Contrast (ICD-10-PCS; 2017-06-10)
PROC: B2111ZZ Fluoroscopy of Multiple Coronary Arteries using Low Osmolar Contrast (ICD-10-PCS; 2017-06-10)
PROC: B2181ZZ Fluoroscopy of Left Internal Mammary Bypass Graft using Low Osmolar Contrast (ICD-10-PCS; 2017-06-10)
PROC: B2151ZZ Fluoroscopy of Left Heart using Low Osmolar Contrast (ICD-10-PCS; 2017-06-10)
PROC: 027034Z Dilation of Coronary Artery, One Artery with Drug-eluting Intraluminal Device, Percutaneous Approach (ICD-10-PCS; principal; 2017-06-10 11:00)
PROC: 4A023N7 Measurement of Cardiac Sampling and Pressure, Left Heart, Percutaneous Approach (ICD-10-PCS; 2017-06-10 11:00)
DX: I25.110 Atherosclerotic heart disease of native coronary artery with unstable angina pectoris (principal); I13.0 Hypertensive heart and chronic kidney disease with heart failure and stage 1 through stage 4 chronic kidney disease, or unspecified chronic kidney disease; N18.4 Chronic kidney disease, stage 4 (severe); E11.22 Type 2 diabetes mellitus with diabetic chronic kidney disease; I50.9 Heart failure, unspecified; E11.40 Type 2 diabetes mellitus with diabetic neuropathy, unspecified; D64.9 Anemia, unspecified; E78.5 Hyperlipidemia, unspecified; J44.9 Chronic obstructive pulmonary disease, unspecified; E87.5 Hyperkalemia; N28.9 Disorder of kidney and ureter, unspecified; Z95.1 Presence of aortocoronary bypass graft

== ENCOUNTER → 2017-06-23 08:55 | Outpatient (CLI) | payer MEDICARE, BC ==
[~2017-06-23 08:55] MED LIST changes: +ATARAX 25 MG TA25 MG PO; +DIPROLENE AF 0.50 GM TOPICAL; +METOLAZONE5 MG PO
== END | disposition home or self-care (01) ==
LOC: D.CT 08:55
DX: I12.9 Hypertensive chronic kidney disease with stage 1 through stage 4 chronic kidney disease, or unspecified chronic kidney disease (principal); N18.4 Chronic kidney disease, stage 4 (severe); E11.22 Type 2 diabetes mellitus with diabetic chronic kidney disease; F17.200 Nicotine dependence, unspecified, uncomplicated; Z68.25 Body mass index [BMI] 25.0-25.9, adult

== ENCOUNTER → 2017-08-02 08:11 | Outpatient (CLI) | payer MEDICARE, BC ==
[~2017-08-02 08:11] MED LIST changes: +ATIVAN0.5 MG PO; +ZOFRAN4 MG PO
== END | disposition home or self-care (01) ==
LOC: D.NM 07-07 12:00
DX: R10.9 Unspecified abdominal pain (principal)

== ENCOUNTER → 2017-08-15 08:07 | Outpatient (CLI) | payer MEDICARE, BC | END | disposition home or self-care (01) | LOC: D.MRI 08:07 | DX: R93.41 Abnormal radiologic findings on diagnostic imaging of renal pelvis, ureter, or bladder (principal); N18.4 Chronic kidney disease, stage 4 (severe) ==

== ENCOUNTER 2017-09-10 11:41 | Inpatient (IN) | payer MEDICARE, BC ==
[~2017-09-10] VITALS: Ht 188 cm; Wt 85.7 kg
--- NOTE | ~2017-09-10 | EC ---
PATIENT:RAINER FOUNTAIN JR DATE OF SERVICE: 09/10/17 SEX: M MEDICAL RECORD: [id number] DATE OF : 51 LOCATION:D.M2 D.210 AGE OF PATIENT: 61 ADMISSION DATE: 09/10/17 REFERRING PHYSICIAN: INTERPRETING PHYSICIAN: MK CASSIDY MD ECHOCARDIOGRAM REPORT ECHO CHARGES 4 ECHO COMPLETE Date: 09/12 CLINICAL DIAGNOSIS: SOB/CP ECHOCARDIOGRAPHIC MEASUREMENTS (adult normal given) AC root (d.<3.7cm) 4.1 cm LV Septum d (<1.2 cm> 1.7 cm Valve Excursion 2.1 cm LV Septum (systole) 2.4 cm Left Atria (s.<4.0cm> 3.0 cm LVPW d(<1.2cm) 1.5 cm RV (d.<2.3cm) 3.2 cm LVPW (sytole) 2.2 cm LV diastole(<5.6CM) 5.9 cm MV E-F(>70mm/sec) cm LV systole 4.8 cm LVOT Diameter 2.2 cm MV exc.(>10mm) cm Est.ejection fraction (50-75%) % DOPPLER: LVIT cm/sec A 119 cm/sec E 163 cm/sec LA cm/sec RVSP 32.1 mmHg LVOT 119 cm/sec AOP1/2T m/s Asc. Ao 158 cm/sec RVOT 94.0 cm/sec RA cm/sec PA 137 cm/sec AV Gradient Peak 10.0 mmHg AV Mean 4.6 mmHg AV Area 3.4 cm MV Gradient Peak 8.8 mmHg MV Mean 3.2 mmHg MV Area cm COMMENTS: Gunner'S Mate: 1 SERA AUSTINOE Design Coordinator: 1 Dr. Cassidy TAPE# PACS Pericardial Effusion N DATE OF SERVICE: PROCEDURE: Echocardiogram FINDINGS: 1. Left ventricular chamber size is within normal limits. Left ventricular systolic function is mildly reduced, overall ejection fraction in the 40% range. 2. Left atrium is within normal limits at 3.0 cm. Right atrium and right ventricle chamber sizes are mildly dilated. 3. Valvular structures have normal structure and motion. ECHOCARDIOGRAM REPORT [id number] RAINER FOUNTAIN JR 4. Doppler interrogation reveals trace- to-mild aortic insufficiency, [id number] tricuspid regurgitation, no other valvular insufficiency or stenosis and pulmonary systolic pressure is normal, estimated at 32 mmHg. 5. No evidence of pericardial effusion or left ventricular thrombus. TRANSINT:[id number] Voice Confirmation ID: [id number] DOCUMENT ID: [id number] MK CASSIDY MD at 0956 CC: [id number] DICTATION DATE: 09/13/17 1135 RN ER: 09/13/17 1506 DIS IN 09/14/17 [place] [id number] [place] [id number]
--- NOTE | ~2017-09-10 | DS ---
PATIENT:RAINER FOUNTAIN JR :51 MEDICAL RECORD: [id number] DISCHARGE SUMMARY ADMISSION DATE: 09/10/17 DISCHARGE DATE: 09/14/17 REASON FOR ADMISSION: Failure to thrive, shortness of breath, symptomatic anemia, and acute kidney injury on CKD that has now progressed to end-stage renal disease. HOSPITAL COURSE: This is a nice 61-year-old gentleman that presented with his with failure to thrive, fatigue, weight loss, does not leave the house. Otherwise, severe failure to thrive. He was started on dialysis via left upper arm AV fistula. PHYSICAL EXAMINATION: GENERAL: He is alert and oriented times 3. Regular rhythm. S1 and S2. His blood pressure was 136/77. Earlier this morning, it was up to 183/82, but it is down to 158/86 by me, pulse is 68, 74. He is alert and oriented times 3. HEENT: Normocephalic, atraumatic. CARDIOVASCULAR: Regular rhythm. S1 and S2. CABG scar is noted. Left upper extremity fistula is thin, but is supporting dialysis. Trace lower extremity edema. ABDOMEN: Positive bowel sounds. LUNGS: Breath sounds of his lungs have improved. LABORATORY DATA: Lab is consistent with ESRD. We did not change any of his medications on discharge except for his Lasix to 40 mg on nondialysis days. We are arranging for dialysis in [place] as this gentleman is from [place]. Continue a renal diet. We will discuss fluid restriction, his anemia, his other medications, and dialysis. I spent 42 minutes with the dictation and discharging meds and discussion with the patient and his family. TRANSINT:[id number] Voice Confirmation ID: [id number] DOCUMENT ID: [id number] JESSIE MACKAY MD at 0728 CC: [id number] DICTATION DATE: 09/13/17 0645 HAMMERSMITH HELPER: 09/13/17 2153 DIS IN 09/14/17 [place] [id number] [place] [id number]
--- NOTE | ~2017-09-10 | CN ---
PATIENT NAME:RAINER MAURICIO JR MEDICAL RECORD: [id number] : 51 LOCATION:D. D.2106 ADMIT DATE: 09/10/17 ACCOUNT: [id number] CONSULTING PHYSICIAN: MK RODRIGUEZ MD REFERRING PHYSICIAN: EMMY MILES DO DATE OF CONSULTATION: 09/11/2017 DIAGNOSES: 1. Shortness of breath. 2. Cardiomyopathy. 3. Coronary artery disease. 4. Hypertension. 5. Hamjt-sq-burzbvt renal insufficiency. 6. Diabetes. HISTORY OF PRESENT ILLNESS: Mr. Mauricio has a past history of coronary artery disease and cardiomyopathy, now presents with shortness of breath. He is found to be in acute renal failure. Troponin is mildly elevated. EKG is with no changes. He has not had any chest pain or chest discomfort. He is not with pulmonary edema. PHYSICAL EXAMINATION: GENERAL APPEARANCE: Well-nourished, well-developed, appears stated age. Level of distress, comfortable. PSYCHIATRIC: Mental status, alert, normal affect. Orientation, oriented to time, place and person. EYES: Lids and conjunctiva, noninjected. No discharge, no pallor. ENT: Lips, teeth, gums, normal dentition. Oropharynx, no cyanosis, no pallor. NECK: Carotid arteries, bilateral normal upstroke, no bruits, no thrills. JUGULAR VEINS: No jugular venous pressure or distention. CERVICAL LYMPH NODES: Nontender, nonenlarged. THYROID: Not enlarged. Nontender. No nodules. LUNGS: Respiratory effort, unlabored. CHEST: Normal curvature. No thoracic deformity. No chest wall tenderness. Percussion, resonant. Auscultation, clear. No wheezes, no rales, no rhonchi. CARDIOVASCULAR: Precordial exam, nondisplaced. No heaves or pericardial thrills. Rate and rhythm, regular. Heart sounds, normal S1, normal S2. No S3, no gallop, no rub. Systolic murmur, not heard. Diastolic murmur, not heard. EXTREMITIES: No cyanosis, no edema. Peripheral pulses, full and equal in all extremities, except as noted. No bruits appreciated. ABDOMEN: Soft, nondistended. Normal aorta. No bruit. Nontender. No masses. Liver, nontender, no hepatomegaly. Spleen, nontender, no splenomegaly. MUSCULOSKELETAL: No joint tenderness. No joint swelling. No erythema. NEUROLOGICAL: Normal gait, normal strength, normal tone. SKIN: Warm and dry. OVERALL IMPRESSION: His symptomatology is now secondary to the acute renal injury. Only cardiac workup will be an echocardiogram at this time. I do not feel the need for repeat coronary angiography. TRANSINT:[id number] Voice Confirmation ID: [id number] DOCUMENT ID: [id number] CONSULT REPORT [id number] RAINER MAURICIO JR, JEFFREY MD at 0956 CC: [id number] DICTATION DATE: 09/11/17 1439 CREATIVE ENGAGEMENT DIRECTOR: 09/11/171916 DIS IN 09/14/17 [facility] [address] [place] [address]
[~2017-09-10 11:41] MED LIST changes: -ATIVAN0.5 MG PO; -ZOFRAN4 MG PO
[2017-09-10 12:42] LABS: BASOPHILS 0.2 % (0-2); EOSINOPHILS 1.9 % (0-7); HEMATOCRIT 21.3 % (42.0-54.0); IMMATURE GRANULOCYTES 4.6 % (0-5); LYMPHOCYTES 8.7 % (15-50); MCH 28.8 pg (26.0-34.0); MCHC 30.5 g/dL (31.0-37.0); MCV 94.2 fL (80.0-100.0); MEAN PLATELET VOLUME 8.6 fL (7.4-10.4); MONOCYTES 7.1 % (2-11); NEUTROPHILS 77.5 % (40-80); PLATELET COUNT 325 10x3/uL (130-400); RBC 2.26 10x6/uL (4.20-6.10); RDW 16.5 % (11.5-14.5); WBC 8.6 10x3/uL (4.8-10.8)
[2017-09-10 12:44] LABS: HEMOGLOBIN 6.5 g/dL (13.5-17.5)
[2017-09-10 12:49] LABS: ALBUMIN 2.6 g/dL (3.4-5.0); BILIRUBIN - TOTAL 0.24 mg/dL (0.2-1.3); CARBON DIOXIDE 20.9 mmol/L (21.0-32.0); POTASSIUM - SERUM 4.9 mmol/L (3.5-5.1); PROTEIN - SERUM 6.5 g/dL (6.4-8.2)
[2017-09-10 13:07] LABS: TROPONIN-I 0.12 ng/mL (0.000-0.060)
[2017-09-10 16:30] VITALS: BP 152/60
[2017-09-10] MEDS ORDERED: BAYER CHEWABLE81 MG PO (16:49)
[2017-09-10] MEDS ORDERED: ZOFRAN4 MG PO (16:51)
[2017-09-10] MEDS ORDERED: BRILINTA90 MG PO (16:54)
[2017-09-10 17:20] VITALS: BP 152/60; BMI 25.2
[2017-09-10 20:00] VITALS: BP 182/66
[2017-09-11 01:00] VITALS: BP 175/79
[2017-09-11 05:00] VITALS: BP 155/63
[2017-09-11 08:18] LABS: BASOPHILS 0.3 % (0-2); EOSINOPHILS 2.6 % (0-7); HEMATOCRIT 22.6 % (42.0-54.0); IMMATURE GRANULOCYTES 4.4 % (0-5); LYMPHOCYTES 12.1 % (15-50); MCHC 31.4 g/dL (31.0-37.0); MEAN PLATELET VOLUME 8.3 fL (7.4-10.4); MONOCYTES 9.1 % (2-11); NEUTROPHILS 71.5 % (40-80); PLATELET COUNT 291 10x3/uL (130-400); RBC 2.45 10x6/uL (4.20-6.10); RDW 16.2 % (11.5-14.5)
[2017-09-11 08:26] LABS: HEMOGLOBIN 7.1 g/dL (13.5-17.5); MCV 92.2 fL (80.0-100.0)
[2017-09-11 08:37] LABS: ANION GAP 15.7 mmol/L (8-16); CALCIUM 8.2 mg/dL (8.5-10.1); CARBON DIOXIDE 19.2 mmol/L (21.0-32.0); PHOSPHOROUS 5.5 mg/dL (2.5-4.9); POTASSIUM - SERUM 4.9 mmol/L (3.5-5.1)
[2017-09-11 08:39] LABS: URIC ACID 11.3 mg/dL (2.6-7.2)
[2017-09-11 09:53] VITALS: BP 175/75
[2017-09-11 12:49] VITALS: BP 175/73
[2017-09-11 20:00] VITALS: BP 173/62
[2017-09-12 01:00] VITALS: BP 155/72
[2017-09-12 04:35] LABS: BASOPHILS 0.9 % (0-2); EOSINOPHILS 2.4 % (0-7); IMMATURE GRANULOCYTES 5.7 % (0-5); LYMPHOCYTES 12.7 % (15-50); MCH 29.5 pg (26.0-34.0); MCHC 32.9 g/dL (31.0-37.0); MEAN PLATELET VOLUME 8.4 fL (7.4-10.4); MONOCYTES 10.6 % (2-11); NEUTROPHILS 67.7 % (40-80); PLATELET COUNT 307 10x3/uL (130-400); RDW 16.5 % (11.5-14.5)
[2017-09-12 04:48] LABS: HEMATOCRIT 28.9 % (42.0-54.0); HEMOGLOBIN 9.5 g/dL (13.5-17.5); MCV 89.8 fL (80.0-100.0); RBC 3.22 10x6/uL (4.20-6.10)
[2017-09-12 05:06] LABS: ANION GAP 16.8 mmol/L (8-16); CALCIUM 8.1 mg/dL (8.5-10.1); CARBON DIOXIDE 22.6 mmol/L (21.0-32.0); CREATININE - SERUM 4.7 mg/dL (0.6-1.3); PHOSPHOROUS 4.2 mg/dL (2.5-4.9); POTASSIUM - SERUM 4.4 mmol/L (3.5-5.1)
[2017-09-12 06:24] VITALS: BP 166/81
[2017-09-12 08:30] VITALS: BP 141/70
[2017-09-12 11:28] VITALS: BP 136/77
[2017-09-12 12:32] VITALS: Ht 188 cm; Wt 85.7 kg
[2017-09-13 01:05] VITALS: BP 183/93
[2017-09-13 05:20] LABS: BASOPHILS 0.6 % (0-2); EOSINOPHILS 2.3 % (0-7); HEMATOCRIT 28.6 % (42.0-54.0); HEMOGLOBIN 9.3 g/dL (13.5-17.5); IMMATURE GRANULOCYTES 4.1 % (0-5); MCH 29.1 pg (26.0-34.0); MCHC 32.5 g/dL (31.0-37.0); MCV 89.4 fL (80.0-100.0); MEAN PLATELET VOLUME 8.9 fL (7.4-10.4); MONOCYTES 8.8 % (2-11); NEUTROPHILS 72.2 % (40-80); PLATELET COUNT 287 10x3/uL (130-400); RDW 15.8 % (11.5-14.5); WBC 7.3 10x3/uL (4.8-10.8)
[2017-09-13 05:32] LABS: ANION GAP 10.6 mmol/L (8-16); CALCIUM 7.7 mg/dL (8.5-10.1); CARBON DIOXIDE 25.5 mmol/L (21.0-32.0); CREATININE - SERUM 3.8 mg/dL (0.6-1.3); PHOSPHOROUS 3.4 mg/dL (2.5-4.9); POTASSIUM - SERUM 4.1 mmol/L (3.5-5.1)
[2017-09-13 05:58] VITALS: BP 183/82
[2017-09-13] MEDS ORDERED: ATIVAN0.5 MG PO (07:06)
[2017-09-13 08:21] VITALS: BP 187/85
[2017-09-13 13:51] VITALS: BP 145/66
[2017-09-13 15:25] LABS: HEPATITIS C ANTIBODY <0.1 (0.0-0.9)
[2017-09-13 21:03] VITALS: BP 165/65
[2017-09-14 01:23] VITALS: BP 140/71
[2017-09-14 05:05] LABS: BASOPHILS 0.8 % (0-2); EOSINOPHILS 3.8 % (0-7); HEMATOCRIT 31.2 % (42.0-54.0); HEMOGLOBIN 10.1 g/dL (13.5-17.5); IMMATURE GRANULOCYTES 2.4 % (0-5); LYMPHOCYTES 13.3 % (15-50); MCH 28.9 pg (26.0-34.0); MCHC 32.4 g/dL (31.0-37.0); MCV 89.1 fL (80.0-100.0); MEAN PLATELET VOLUME 8.7 fL (7.4-10.4); MONOCYTES 11.8 % (2-11); NEUTROPHILS 67.9 % (40-80); PLATELET COUNT 319 10x3/uL (130-400); RDW 15.7 % (11.5-14.5); WBC 7.7 10x3/uL (4.8-10.8)
[2017-09-14 05:26] LABS: ANION GAP 14.4 mmol/L (8-16); CALCIUM 8.1 mg/dL (8.5-10.1); CARBON DIOXIDE 25.7 mmol/L (21.0-32.0); PHOSPHOROUS 4.2 mg/dL (2.5-4.9); POTASSIUM - SERUM 4.1 mmol/L (3.5-5.1)
[2017-09-14 05:29] VITALS: BP 170/72
[2017-09-14 10:15] VITALS: BP 185/78
== END 2017-09-14 16:31 | disposition home or self-care (01) | DRG 683 ==
LOC: D.ER 11:41 → D.EDHOLD 14:05 → D.M2 14:05
PROVIDERS: Family Medicine; Internal Medicine Nephrology
PROC: 5A1D70Z Performance of Urinary Filtration, Intermittent, Less than 6 Hours Per Day (ICD-10-PCS; principal; 2017-09-11)
DX: N17.9 Acute kidney failure, unspecified (principal); I13.2 Hypertensive heart and chronic kidney disease with heart failure and with stage 5 chronic kidney disease, or end stage renal disease; I50.22 Chronic systolic (congestive) heart failure; I42.9 Cardiomyopathy, unspecified; D63.1 Anemia in chronic kidney disease; N18.6 End stage renal disease; E11.22 Type 2 diabetes mellitus with diabetic chronic kidney disease; Z99.2 Dependence on renal dialysis; J44.9 Chronic obstructive pulmonary disease, unspecified; K21.9 Gastro-esophageal reflux disease without esophagitis; I25.10 Atherosclerotic heart disease of native coronary artery without angina pectoris; Z95.5 Presence of coronary angioplasty implant and graft; Z72.0 Tobacco use; R62.7 Adult failure to thrive

== ENCOUNTER 2018-01-20 14:30 | Emergency (ER) | payer MEDICARE, BC ==
[~2018-01-20] VITALS: Ht 188 cm; Wt 90.9 kg
[~2018-01-20 14:30] MED LIST changes: +ATIVAN0.5 MG PO; +ZOFRAN4 MG PO
[2018-01-20 14:58] VITALS: Ht 188 cm; Wt 90.9 kg
[2018-01-20] MEDS ORDERED: MEDROL DOSE PACK4 MG PO (15:01)
[2018-01-20] MEDS ORDERED: ZITHROMAX250 MG PO (15:01)
[2018-01-20 15:31] LABS: APPEARANCE CLEAR (CLEAR); BILIRUBIN NEGATIVE (NEGATIVE); COLOR YELLOW (YELLOW); GLUCOSE 1000 mg/dL (NEGATIVE); KETONE NEGATIVE (NEGATIVE); NITRITE NEGATIVE (NEGATIVE); PROTEIN 1+ mg/dL (NEGATIVE); UROBILINOGEN NORMAL (NORMAL)
[2018-01-20 15:33] LABS: WHITE CELLS - URINE 0-5 /hpf (0-5)
[2018-01-20 15:34] LABS: BACTERIA FEW /hpf (NONE SEEN); RED CELLS - URINE 0-5 /hpf (0-5)
[2018-01-20 16:31] LABS: KETONE - SERUM NEGATIVE (NEGATIVE)
[2018-01-20 16:35] LABS: BASOPHILS 0.4 % (0-2); EOSINOPHILS 0 % (0-7); HEMATOCRIT 34.5 % (42.0-54.0); HEMOGLOBIN 11.5 g/dL (13.5-17.5); IMMATURE GRANULOCYTES 0.8 % (0-5); LYMPHOCYTES 10.1 % (15-50); MCH 31.5 pg (26.0-34.0); MCHC 33.3 g/dL (31.0-37.0); MCV 94.5 fL (80.0-100.0); MEAN PLATELET VOLUME 9.1 fL (7.4-10.4); MONOCYTES 5.5 % (2-11); NEUTROPHILS 83.2 % (40-80); RBC 3.65 10x6/uL (4.20-6.10); RDW 12.9 % (11.5-14.5); WBC 4.8 10x3/uL (4.8-10.8)
[2018-01-20 16:36] LABS: PLATELET COUNT 142 10x3/uL (130-400)
[2018-01-20 16:46] LABS: ALKALINE PHOSPHATASE 138 U/L (46-116); ALT (SGPT) 42 U/L (10-68); BILIRUBIN - TOTAL 0.23 mg/dL (0.2-1.3); CALCIUM 7.6 mg/dL (8.5-10.1); CARBON DIOXIDE 26.8 mmol/L (21.0-32.0); CHLORIDE - SERUM 97 mmol/L (98-107); CREATININE - SERUM 2.8 mg/dL (0.6-1.3); MAGNESIUM - SERUM 1.7 mg/dL (1.8-2.4); POTASSIUM - SERUM 4.8 mmol/L (3.5-5.1); PROTEIN - SERUM 6.4 g/dL (6.4-8.2); SODIUM 133 mmol/L (136-145); UREA NITROGEN 33 mg/dL (7-18); eGFR NON AFRICAN AMERICAN 24 mL/min (90-120)
[2018-01-20 16:50] LABS: CALC OSMOLALITY 298 mosm/kg (275-300); GLUCOSE 564 mg/dL (74-106)
[2018-01-20] MEDS ORDERED: GLIMEPIRIDE2 MG PO (18:57)
[2018-01-20 19:50] VITALS: BP 176/88
== END 2018-01-20 19:55 | disposition home or self-care (01) ==
LOC: D.ER 14:30
PROVIDERS: Emergency Medicine
DX: E11.65 Type 2 diabetes mellitus with hyperglycemia (principal); D64.9 Anemia, unspecified; I12.0 Hypertensive chronic kidney disease with stage 5 chronic kidney disease or end stage renal disease; N18.6 End stage renal disease; I25.810 Atherosclerosis of coronary artery bypass graft(s) without angina pectoris; I50.9 Heart failure, unspecified; J44.9 Chronic obstructive pulmonary disease, unspecified

== ENCOUNTER 2018-01-21 21:20 | Inpatient (IN) | payer MEDICARE, BC ==
[~2018-01-21] VITALS: Ht 188 cm; Wt 90.7 kg
--- NOTE | ~2018-01-21 | HP ---
PATIENT: RAINER FOUNTAIN JR MEDICAL RECORD: [id number] ACCOUNT: [id number] LOCATION:[address] : 51 ADMISSION DATE: 01/21/18 HISTORY AND PHYSICAL EXAMINATION DATE OF ADMISSION: 01/21/2018 CHIEF COMPLAINT: Chest pain. HISTORY OF PRESENT ILLNESS: The patient is a 62-year-old gentleman who states that he developed pressure in his chest, hurts to take a deep breath. Of note, the patient has had coronary artery bypass grafting times 4. He has had 2 cardiac stents. The patient states that he felt as if something was sitting on his chest. He presented to the Emergency Room for evaluation. PAST MEDICAL HISTORY: His past history is significant in that he has had chronic kidney disease, recently placed on dialysis 3 times a week. He has also had hypertension and COPD. He has had back pain. He has had numerous back surgeries in the past. He has had lumbar posterior laminectomy. He has had peripheral neuropathy, gastroesophageal reflux, and hyperlipidemia. He has had shoulder surgery. He has had cholecystectomy. He has had spinal fusion by Dr. Foster. Left shoulder surgery, carpal tunnel syndrome, appendectomy, and knee surgeries. FAMILY HISTORY: Father of myocardial infarction at age 60. Mother apparently is still living. SOCIAL HISTORY: He grew up in [place], [place]. He lives in [place]. He is , has children. HABITS: The patient denies any ethanol use, but does state he is a pack-a-day smoker since his teens. ALLERGIES: METFORMIN, STATES HE HAS DIARRHEA. The patient also reports that he had been given steroids. He had presented to the Emergency Room on the where he was found to have blood sugar over 700. He had been taken off all his diabetic medications in the recent past with his A1c being in 6.2 range. He states he has had episodes of having hypoglycemia. CURRENT MEDICATIONS: Include amlodipine 10 mg one p.o. daily, aspirin 81 mg once a day, Brilinta 90 mg p.o. b.i.d., carvedilol 25 mg one p.o. b.i.d., Lasix 40 mg p.o. b.i.d., hydralazine 100 mg p.o. t.i.d., and hydroxyzine 25 mg one every eight hours. He is on Combivent 3 mL q. 4 hours p.r.n. shortness of breath, metolazone 5 mg once a day, Singulair 10 mg once a day, morphine ER 30 mg release one every 12 hours, omeprazole 40 mg daily, Paxil 20 mg daily, ranitidine 300 mg daily, Crestor 10 mg once a day, tramadol 50 mg one every 6 hours p.r.n. pain, trazodone 50 mg p.o. at bedtime p.r.n. insomnia, Xanax 0.5 q. 4 hours p.r.n. anxiety, zolpidem 10 mg p.o. at bedtime p.r.n. insomnia. REVIEW OF SYSTEMS: CONSTITUTIONAL: He denies any headache, seizure, or syncope. He denies any changes in visual or auditory acuity. PULMONARY: He has had cough and congestion. He has had wheezing. He has had pain with inspiration. HISTORY AND PHYSICAL [id number] RAINER FOUNTAIN JR CARDIOVASCULAR: He stated that he has had extreme pressure on his chest. GASTROINTESTINAL: No chronic nausea, vomiting, melena, or hematochezia. GENITOURINARY: No urgency, frequency, or dysuria. PHYSICAL EXAMINATION: VITAL SIGNS: In the Emergency Room, the patient's temperature was 97.5, pulse 69, respirations 15, O2 sat was 96%, blood pressure elevated at 207/83. HEENT: His head is normocephalic. No lesions. Ears; TMs are clear. Eyes; pupils are equal, round, and reactive to light. His extraocular movements are intact. His nasal cavity, oral cavity, and oropharynx are clear. NECK: Supple. There is no adenopathy. HEART: Regular rate and rhythm without murmurs, gallops, or rubs. LUNGS: He has decreased breath sounds in all walker. He also has end expiratory wheezes. ABDOMEN: Soft. Bowel sounds are positive. GENITAL: Deferred. RECTAL: Deferred. LABORATORY DATA: The patient had white blood cell count of 5.4, hemoglobin 11.8, hematocrit 35.4, and his platelets were 143. PT/INR was normal. He has slight elevation of D-dimer of 1.18. Sodium 133, potassium 4.1, chloride is 101, CO2 is 25.9, BUN is 38, creatinine is 3.6, blood sugar is 330. Liver functions are normal. He had a slight elevation in his CK-MB at 3.7. His troponin was within normal limits as well as his creatinine kinase. According to the Emergency Room physician report, there is question of right lower lobe pneumonia. ASSESSMENT: Chest pain; history of coronary artery bypass grafting times 4 with 2 stents; possible pneumonia; COPD exacerbation; chronic kidney disease, currently on dialysis 3 times weekly; hyperlipidemia; hypertension. PLAN: The patient is admitted. Cardiology as well as renal consultation will be obtained. The patient will be placed on Rocephin 1 gram q. 24 hours and Zithromax 500 mg IV q. 24 hours. He will be given updraft therapy and O2 supplementation, placed on Humalog sliding scale, and continued to evaluate this. TRANSINT:[id number] Voice Confirmation ID: [id number] DOCUMENT ID: [id number] IRENE GUILLEN MD at 0729 CC: [id number] DICTATION DATE: 01/22/18 1015 DIPPER AND DRIER: 01/22/18 1256 ADM IN [facility] [address] [place] [id number]
--- NOTE | ~2018-01-21 | ST ---
PATIENT:RAINER FOUNTAIN JR MEDICAL RECORD: [id number] SEX: M LOCATION:D. D.213 ORDER #: ADMISSION DATE: 01/21/18 AGE OF PATIENT: 62 REFERRING PHYSICIAN: INTERPRETING PHYSICIAN: UZMA ALLEN MD DATE OF SERVICE: 01/25/2018 PROCEDURE: Lexiscan-directed nuclear stress test. PROCEDURE IN DETAIL: The patient was brought into nuclear catheterization lab and placed in supine position. The patient had Lexiscan delivered via normal protocol and tolerated the procedure without any difficulties. No chest pain or shortness of breath. The patient was monitored throughout the infusion and had no distinct ST or T-wave changes. The patient had sestamibi injected at rest and at stress on the same day, 12.9 mCi sestamibi injected at rest and 32.8 mCi sestamibi injected after stress. The gated imaging showed an ejection fraction of 50% to 55%. The SPECT imaging showed a mild fixed defect apically, mild in intensity, mild in distribution. Otherwise, the patient had a normal stress test. No evidence of significant ischemia. CONCLUSION: The patient has evidence of a mild previous infarction with no significant area of ischemia with an ejection fraction of 50%. It would be reasonable to treat the patient with aggressive risk factor modification and symptom management. If that direction does not control the symptoms, angiography may be helpful. TRANSINT:[id number] Voice Confirmation ID: [id number] DOCUMENT ID: [id number] UZMA ALLEN MD at 0749 CC: [id number] DICTATION DATE: 01/25/1828 VEHICLE CARE SPECIALIST: 01/25/18 0802 DIS IN 01/25/18 [place] [id number] [place] [address]
--- NOTE | ~2018-01-21 | EC ---
PATIENT:RAINER FOUNTAIN JR DATE OF SERVICE: 01/21/18 SEX: M MEDICAL RECORD: [id number] DATE OF : 51 LOCATION:D.M2 D.213 AGE OF PATIENT: 62 ADMISSION DATE: 01/21/18 REFERRING PHYSICIAN: INTERPRETING PHYSICIAN: UZMA ALLEN MD ECHOCARDIOGRAM REPORT ECHO CHARGES 4 ECHO COMPLETE Date: 01/22 CLINICAL DIAGNOSIS: CP ECHOCARDIOGRAPHIC MEASUREMENTS (adult normal given) AC root (d.<3.7cm) 3.4 cm LV Septum d (<1.2 cm> 1.0 cm Valve Excursion 1.4 cm LV Septum (systole) 1.3 cm Left Atria (s.<4.0cm> 2.6 cm LVPW d(<1.2cm) 1.0 cm RV (d.<2.3cm) 3.7 cm LVPW (sytole) 1.7 cm LV diastole(<5.6CM) 6.3 cm MV E-F(>70mm/sec) cm LV systole 5.4 cm LVOT Diameter 2.2 cm MV exc.(>10mm) cm Est.ejection fraction (50-75%) % DOPPLER: LVIT cm/sec A 119 cm/sec E 106 cm/sec LA cm/sec RVSP 23.1 mmHg LVOT 148 cm/sec AOP1/2T m/s Asc. Ao 198 cm/sec RVOT 96 cm/sec RA cm/sec PA 66 cm/sec AV Gradient Peak 15.7 mmHg AV Mean 8.5 mmHg AV Area 3.1 cm MV Gradient Peak 7.0 mmHg MV Mean 4.1 mmHg MV Area cm COMMENTS: Commissary Production Supervisor: [facility] Farm Implement Engine Mechanic: Lauren Allen TAPE# PACS Pericardial Effusion N DATE OF SERVICE: PROCEDURE: Transthoracic echocardiogram. FINDINGS: 1. Left ventricle ejection fraction is 60%. There is left ventricular hypertrophy. Inflow characteristics consistent with diastolic dysfunction. There is no regional wall motion abnormalities. 2. The left atrium is normal. 3. Aortic valve is normal. ECHOCARDIOGRAM REPORT [id number] RAINER FOUNTAIN JR 4. The mitral valve is normal. 5. The tricuspid valve is normal. 6. The right ventricle is dilated with right ventricular hypertrophy. 7. The right atrium is normal size, shape, and function. 8. The pulmonic valve is normal. CONCLUSIONS: The patient has upper limits of normal left ventricular enlargement with left ventricular hypertrophy and evidence of hypertensive heart disease, otherwise normal echocardiogram by function and structure. TRANSINT:[id number] Voice Confirmation ID: [id number] DOCUMENT ID: [id number] UZMA ALLEN MD at 0749 CC: [id number] DICTATION DATE: 01/22/18 2249 TORCH CUTTER: 01/23/18 0545 DIS IN 01/25/18 [place] [id number] [place] [address]
[~2018-01-21 21:20] MED LIST changes: +GLIMEPIRIDE2 MG PO; +MEDROL DOSE PACK4 MG PO
[2018-01-21 22:00] LABS: BASOPHILS 0.4 % (0-2); EOSINOPHILS 3.7 % (0-7); HEMATOCRIT 35.4 % (42.0-54.0); HEMOGLOBIN 11.8 g/dL (13.5-17.5); IMMATURE GRANULOCYTES 1.1 % (0-5); LYMPHOCYTES 14.5 % (15-50); MCH 31.6 pg (26.0-34.0); MCHC 33.3 g/dL (31.0-37.0); MCV 94.7 fL (80.0-100.0); MEAN PLATELET VOLUME 8.9 fL (7.4-10.4); MONOCYTES 7.1 % (2-11); NEUTROPHILS 73.2 % (40-80); PLATELET COUNT 143 10x3/uL (130-400); RBC 3.74 10x6/uL (4.20-6.10); RDW 12.9 % (11.5-14.5); WBC 5.4 10x3/uL (4.8-10.8)
[2018-01-21 22:11] LABS: APTT 29.4 SECONDS (22.8-39.4); INR 0.95 (0.85-1.17); PROTIME 12.3 SECONDS (11.6-15.0)
[2018-01-21 22:13] LABS: D-DIMER-QUANTITATIVE 1.18 ug/mLFEU (0.20-0.54)
[2018-01-21 22:17] LABS: ALBUMIN 2.8 g/dL (3.4-5.0); ALKALINE PHOSPHATASE 112 U/L (46-116); ALT (SGPT) 42 U/L (10-68); BILIRUBIN - TOTAL 0.25 mg/dL (0.2-1.3); CALC OSMOLALITY 287 mosm/kg (275-300); CARBON DIOXIDE 25.9 mmol/L (21.0-32.0); CHLORIDE - SERUM 101 mmol/L (98-107); GLUCOSE 330 mg/dL (74-106); POTASSIUM - SERUM 4.1 mmol/L (3.5-5.1); PROTEIN - SERUM 6.4 g/dL (6.4-8.2); SODIUM 133 mmol/L (136-145); UREA NITROGEN 38 mg/dL (7-18); eGFR NON AFRICAN AMERICAN 18 mL/min (90-120)
[2018-01-21 22:18] LABS: CREATININE - SERUM 3.6 mg/dL (0.6-1.3)
[2018-01-21 22:28] VITALS: BP 198/87
[2018-01-21 22:28] LABS: CKMB 3.7 U/L (0.0-3.6); CREATINE KINASE 108 UL (21-232); MAGNESIUM - SERUM 1.8 mg/dL (1.8-2.4)
[2018-01-21 22:41] LABS: TROPONIN-I < 0.017 ng/mL (0.000-0.060)
[2018-01-21 22:47] VITALS: BP 180/76
[2018-01-22 03:17] VITALS: BMI 25.7
[2018-01-22 03:56] LABS: BASOPHILS 0.3 % (0-2); EOSINOPHILS 1.6 % (0-7); HEMATOCRIT 34.9 % (42.0-54.0); HEMOGLOBIN 11.7 g/dL (13.5-17.5); IMMATURE GRANULOCYTES 0.9 % (0-5); LYMPHOCYTES 4.6 % (15-50); MCH 31.5 pg (26.0-34.0); MCHC 33.5 g/dL (31.0-37.0); MCV 94.1 fL (80.0-100.0); MEAN PLATELET VOLUME 8.6 fL (7.4-10.4); MONOCYTES 2.6 % (2-11); PLATELET COUNT 143 10x3/uL (130-400); RBC 3.71 10x6/uL (4.20-6.10); RDW 12.9 % (11.5-14.5)
[2018-01-22 03:57] LABS: WBC 6.9 10x3/uL (4.8-10.8)
[2018-01-22 04:22] LABS: ALBUMIN 2.6 g/dL (3.4-5.0); ALKALINE PHOSPHATASE 114 U/L (46-116); ALT (SGPT) 42 U/L (10-68); BILIRUBIN - TOTAL 0.22 mg/dL (0.2-1.3); CALC OSMOLALITY 285 mosm/kg (275-300); CALCIUM 7.8 mg/dL (8.5-10.1); CARBON DIOXIDE 23.1 mmol/L (21.0-32.0); CHLORIDE - SERUM 103 mmol/L (98-107); CREATINE KINASE 80 UL (21-232); GLUCOSE 283 mg/dL (74-106); POTASSIUM - SERUM 4.6 mmol/L (3.5-5.1); PROTEIN - SERUM 6.2 g/dL (6.4-8.2); SODIUM 133 mmol/L (136-145); TROPONIN-I 0.019 ng/mL (0.000-0.060); UREA NITROGEN 40 mg/dL (7-18); eGFR NON AFRICAN AMERICAN 16 mL/min (90-120)
[2018-01-22 05:20] VITALS: BP 185/77
[2018-01-22 08:51] VITALS: BP 173/67
[2018-01-22 08:55] LABS: CKMB 2.4 U/L (0.0-3.6); CREATINE KINASE 70 UL (21-232); TROPONIN-I 0.022 ng/mL (0.000-0.060)
[2018-01-22 12:20] VITALS: BP 194/79
[2018-01-22 14:36] LABS: CKMB 2.3 U/L (0.0-3.6); CREATINE KINASE 63 UL (21-232)
[2018-01-22 14:37] LABS: TROPONIN-I < 0.017 ng/mL (0.000-0.060)
[2018-01-22 16:55] VITALS: BP 106/67
[2018-01-22 20:00] VITALS: BP 130/61
[2018-01-22 21:17] LABS: APPEARANCE CLEAR (CLEAR); BILIRUBIN NEGATIVE (NEGATIVE); COLOR YELLOW (YELLOW); GLUCOSE 1000 mg/dL (NEGATIVE); KETONE NEGATIVE (NEGATIVE); NITRITE NEGATIVE (NEGATIVE); PROTEIN 1+ mg/dL (NEGATIVE); SPECIFIC GRAVITY 1.015 (1.005-1.020); UROBILINOGEN NORMAL (NORMAL)
[2018-01-23] VITALS: BP 171/66
[2018-01-23 04:00] VITALS: BP 162/63
[2018-01-23 04:05] LABS: BASOPHILS 0 % (0-2); EOSINOPHILS 0 % (0-7); HEMATOCRIT 30.3 % (42.0-54.0); HEMOGLOBIN 10.2 g/dL (13.5-17.5); IMMATURE GRANULOCYTES 0.4 % (0-5); LYMPHOCYTES 5.3 % (15-50); MCH 31.2 pg (26.0-34.0); MCHC 33.7 g/dL (31.0-37.0); MCV 92.7 fL (80.0-100.0); MEAN PLATELET VOLUME 8.9 fL (7.4-10.4); MONOCYTES 4.8 % (2-11); NEUTROPHILS 89.5 % (40-80); PLATELET COUNT 143 10x3/uL (130-400); RBC 3.27 10x6/uL (4.20-6.10); RDW 12.8 % (11.5-14.5)
[2018-01-23 04:37] LABS: ANION GAP 13.9 mmol/L (8-16); CALCIUM 7.5 mg/dL (8.5-10.1); CARBON DIOXIDE 23.8 mmol/L (21.0-32.0); CREATININE - SERUM 4.6 mg/dL (0.6-1.3); POTASSIUM - SERUM 4.7 mmol/L (3.5-5.1)
[2018-01-23 07:57] VITALS: BP 164/65
[2018-01-23 08:00] VITALS: BP 174/68
[2018-01-23] MEDS ORDERED: HYDROCODONE-APA1 TAB PO (08:46)
[2018-01-23 13:12] VITALS: Ht 188 cm; Wt 90.7 kg
[2018-01-23 15:29] VITALS: BP 176/63
[2018-01-24 04:33] VITALS: BP 152/68
[2018-01-24 05:26] LABS: BASOPHILS 0.2 % (0-2); EOSINOPHILS 0.2 % (0-7); HEMATOCRIT 33.6 % (42.0-54.0); IMMATURE GRANULOCYTES 0.8 % (0-5); LYMPHOCYTES 15.6 % (15-50); MCHC 32.7 g/dL (31.0-37.0); MCV 94.6 fL (80.0-100.0); MEAN PLATELET VOLUME 8.8 fL (7.4-10.4); MONOCYTES 8.9 % (2-11); NEUTROPHILS 74.3 % (40-80); PLATELET COUNT 155 10x3/uL (130-400); RBC 3.55 10x6/uL (4.20-6.10)
[2018-01-24 05:31] LABS: WBC 6.2 10x3/uL (4.8-10.8)
[2018-01-24 05:40] LABS: ALBUMIN 2.6 g/dL (3.4-5.0); BILIRUBIN - TOTAL 0.28 mg/dL (0.2-1.3); CALCIUM 7.6 mg/dL (8.5-10.1); CREATININE - SERUM 3.5 mg/dL (0.6-1.3); PROTEIN - SERUM 5.9 g/dL (6.4-8.2)
[2018-01-24 05:43] LABS: ANION GAP 8.2 mmol/L (8-16); CARBON DIOXIDE 31.4 mmol/L (21.0-32.0); POTASSIUM - SERUM 3.6 mmol/L (3.5-5.1)
[2018-01-24 11:36] VITALS: BP 140/51
[2018-01-24 16:28] VITALS: BP 152/68
[2018-01-24 20:00] VITALS: BP 140/63
[2018-01-25] MEDS ORDERED: ISOSORBIDE MONO60 M1 PO (07:29)
[2018-01-25] MEDS ORDERED: OMNICEF300 MG PO (07:30)
[2018-01-25 08:51] VITALS: BP 180/71
== END 2018-01-25 14:55 | disposition home or self-care (01) | DRG 190 ==
LOC: D.ER 21:20 → D.M2 23:40
PROVIDERS: Family Medicine
PROC: 5A1D70Z Performance of Urinary Filtration, Intermittent, Less than 6 Hours Per Day (ICD-10-PCS; principal; 2018-01-23)
DX: J44.0 Chronic obstructive pulmonary disease with (acute) lower respiratory infection (principal); J18.9 Pneumonia, unspecified organism; I13.0 Hypertensive heart and chronic kidney disease with heart failure and stage 1 through stage 4 chronic kidney disease, or unspecified chronic kidney disease; I50.22 Chronic systolic (congestive) heart failure; J44.1 Chronic obstructive pulmonary disease with (acute) exacerbation; J20.9 Acute bronchitis, unspecified; E11.22 Type 2 diabetes mellitus with diabetic chronic kidney disease; E11.65 Type 2 diabetes mellitus with hyperglycemia; N18.9 Chronic kidney disease, unspecified; E11.40 Type 2 diabetes mellitus with diabetic neuropathy, unspecified; E78.5 Hyperlipidemia, unspecified; I25.10 Atherosclerotic heart disease of native coronary artery without angina pectoris; D63.1 Anemia in chronic kidney disease; K21.9 Gastro-esophageal reflux disease without esophagitis; Z95.5 Presence of coronary angioplasty implant and graft; Z95.1 Presence of aortocoronary bypass graft; Z72.0 Tobacco use

== ENCOUNTER 2018-04-18 05:34 | Day surgery (SDC) | payer MEDICARE, BC ==
[~2018-04-18] VITALS: Ht 2095.5 cm; Wt 86.2 kg
--- NOTE | ~2018-04-18 | OP ---
PATIENT NAME: RAINER FOUNTAIN JR MEDICAL RECORD: [id number] :51 LOCATION:[facility] ADMISSION DATE: SURGEON: IRENE EDMONDSON MD DATE OF OPERATION: 04/18/2018 PREOPERATIVE DIAGNOSIS: End-stage renal disease. POSTOPERATIVE DIAGNOSIS: End-stage renal disease. OPERATION PERFORMED: Implantation of a peritoneal dialysis catheter. SURGEON: Irene Edmondson MD ANESTHESIA: General endotracheal per HEMATOLOGY TECHNOLOGIST. REFERRING PHYSICIAN: Jessie Padilla MD PREOPERATIVE NOTE: This 62-year-old white male patient with numerous medical problems among some coronary artery disease, hypertension, hyperlipidemia, etc., and persistent tobacco abuse, is on dialysis, but wants to do home peritoneal dialysis. He has been cleared by nephrology and also by cardiology for the procedure today laparoscopic implantation of PD dialysis catheter. I have not had him stop his Brilinta due to his heart disease. DESCRIPTION OF PROCEDURE: Under general endotracheal anesthesia in supine position, the patient was prepped and draped in a sterile manner. I inserted an XL Optiview type port with a 0-degree 5-mm diameter laparoscope within it through a small incision in the left upper quadrant. Pneumoperitoneum was established with carbon dioxide and the peritoneal cavity examined. No abnormalities were seen. There was no omentum seen. There were no intestinal abnormalities. There were no adhesions. I elected to go ahead with a right lower quadrant implantation even though the patient has had a generous right lower quadrant prior laparotomy incision. There were no adhesions associated with it and no hernias. I identified a site to the right of the midline just below the level of the umbilicus, made an incision there and inserted a needle through the anterior rectus sheath at the point at which I wanted the deeper of the 2 Dacron felt cuffs to be left and passed the needle then parallel as far inferiorly as possible, parallel to the peritoneum before then entering the abdominal cavity. This was done to tunnel the intrarectus peritoneal dialysis catheter. A guidewire and then a peel-away introducer was placed and then the catheter inserted and positioned in the pelvis. I did place another 5-mm port through a left lower quadrant 5-mm port and positioned the coiled catheter deep in the pelvis. The catheter was placed in a subcutaneous tunnel, leaving the more superficial of the 2 Dacron felt cuffs in the subcutaneous tissues 2-3 cm above the skin exit site. The deeper of the 2 cuffs was imbedded within the substance of the rectus muscle just below the anterior rectus sheath where a pursestring suture of 0 Vicryl was placed. The catheter was flushed with saline and found to flush and also drain freely. It was heparin-locked, clamped and capped. Carbon dioxide was allowed to escape from the abdomen and the ports were removed. The incisions were infiltrated with 0.25% Marcaine with epinephrine. The wounds were closed with interrupted inverted 3-0 Vicryl and running intracuticular 4-0 Stratafix. Sterile dressings were applied. The catheter was dressed with glue at the exit site. Then, a Biopatch covered by additional OPERATIVE REPORT [id number] RAINER FOUNTAIN JR sterile dressings. The patient was awakened and in stable condition taken to the recovery room. Blood loss was trivial and unreplaced. There was no abnormal bleeding and care was taken to assure hemostasis with electrocautery whenever possible. Sponges, instruments and needles were accounted for. No specimen was submitted for histopathology. PLAN: The patient will be allowed to go home today. Continue his usual medications, diet and activities and routine dialysis schedule. He will be seen by peritoneal dialysis nurses next week for his first catheter flush and is to be back in my office to see me in 2 weeks. He is given a prescription for ten tramadol 50 mg tablets. He can take 1 or 2 p.o. every 4 hours p.r.n. pain and advised to use an ice pack also p.r.n. for abdominal incisional discomfort. TRANSINT:[id number] Voice Confirmation ID: [id number] DOCUMENT ID: [id number] IRENE EDMONDSON MD at 1659 CC: JESSIE PADILLA MD [id number] DICTATION DATE: 04/18/18 0959 DROP HAMMER OPERATOR HELPER: 04/18/18 1136 [facility] 04/18/18 [place] [id number] [place] [id number]
[~2018-04-18 05:34] MED LIST changes: +ISOSORBIDE MONO60 M1 PO
[2018-04-18 05:52] LABS: BASOPHILS 0.6 % (0-2); EOSINOPHILS 3.2 % (0-7); HEMATOCRIT 35.3 % (42.0-54.0); HEMOGLOBIN 11.5 g/dL (13.5-17.5); IMMATURE GRANULOCYTES 0.3 % (0-5); LYMPHOCYTES 9.1 % (15-50); MCH 30.3 pg (26.0-34.0); MCHC 32.6 g/dL (31.0-37.0); MCV 93.1 fL (80.0-100.0); MEAN PLATELET VOLUME 8.4 fL (7.4-10.4); MONOCYTES 4.7 % (2-11); NEUTROPHILS 82.1 % (40-80); RBC 3.79 10x6/uL (4.20-6.10); RDW 13.4 % (11.5-14.5); WBC 10.2 10x3/uL (4.8-10.8)
[2018-04-18 06:07] LABS: ANION GAP 14.9 mmol/L (8-16); CALCIUM 8.4 mg/dL (8.5-10.1); CARBON DIOXIDE 24.3 mmol/L (21.0-32.0); CREATININE - SERUM 3.8 mg/dL (0.6-1.3); POTASSIUM - SERUM 4.2 mmol/L (3.5-5.1)
[2018-04-18 06:33] LABS: PLATELET COUNT 275 10x3/uL (130-400)
[2018-04-18] MEDS ORDERED: DESERYL50 M2 PO (06:38)
[2018-04-18] MEDS ORDERED: NORVASC5 MG PO (06:38)
[2018-04-18] MEDS ORDERED: METOLAZONE5 MG PO (06:39)
[2018-04-18] MEDS ORDERED: GLIMEPIRIDE2 MG PO (06:39)
[2018-04-18 06:55] VITALS: Ht 2095.5 cm; Wt 86.2 kg
[2018-04-18 06:57] LABS: APTT 32.6 SECONDS (22.8-39.4); INR 0.97 (0.85-1.17); PROTIME 12.6 SECONDS (11.6-15.0)
[2018-04-18] MEDS ORDERED: ULTRAM50 MG PO (09:19)
== END 2018-04-18 11:59 | disposition home or self-care (01) ==
LOC: D.OPS 05:34
PROVIDERS: Surgery
DX: E11.22 Type 2 diabetes mellitus with diabetic chronic kidney disease (principal); I12.0 Hypertensive chronic kidney disease with stage 5 chronic kidney disease or end stage renal disease; N18.6 End stage renal disease; Z99.2 Dependence on renal dialysis; Z72.0 Tobacco use; E78.5 Hyperlipidemia, unspecified; I25.10 Atherosclerotic heart disease of native coronary artery without angina pectoris; J44.9 Chronic obstructive pulmonary disease, unspecified; D64.9 Anemia, unspecified

== ENCOUNTER → 2018-05-11 13:05 | Outpatient (CLI) | payer MEDICARE, BC ==
[~2018-05-11 13:05] MED LIST changes: +DESERYL50 M2 PO; +NORVASC5 MG PO
== END | disposition home or self-care (01) ==
LOC: D.RAD 13:05
DX: K59.00 Constipation, unspecified (principal)

== ENCOUNTER → 2018-05-17 08:17 | Outpatient (CLI) | payer MEDICARE, BC | END | disposition home or self-care (01) | LOC: D.CT 08:00 | DX: N18.6 End stage renal disease (principal) ==

== ENCOUNTER 2018-05-29 05:06 | Day surgery (SDC) | payer MEDICARE, BC ==
[~2018-05-29] VITALS: Ht 190.5 cm; Wt 87.1 kg
[2018-05-29 05:29] LABS: BASOPHILS 0.9 % (0-2); EOSINOPHILS 8.7 % (0-7); HEMATOCRIT 32.6 % (42.0-54.0); HEMOGLOBIN 10.3 g/dL (13.5-17.5); IMMATURE GRANULOCYTES 0.3 % (0-5); MCHC 31.6 g/dL (31.0-37.0); MEAN PLATELET VOLUME 7.8 fL (7.4-10.4); NEUTROPHILS 69.1 % (40-80); PLATELET COUNT 194 10x3/uL (130-400); RBC 3.43 10x6/uL (4.20-6.10); RDW 14.7 % (11.5-14.5); WBC 5.8 10x3/uL (4.8-10.8)
[2018-05-29 05:59] LABS: INR 0.99 (0.85-1.17); PROTIME 12.6 SECONDS (11.6-15.0)
[2018-05-29 06:00] LABS: APTT 33.1 SECONDS (22.8-39.4)
[2018-05-29 06:03] LABS: ANION GAP 15.3 mmol/L (8-16); CALCIUM 8.1 mg/dL (8.5-10.1); CARBON DIOXIDE 25.5 mmol/L (21.0-32.0); CREATININE - SERUM 4.8 mg/dL (0.6-1.3); POTASSIUM - SERUM 4.8 mmol/L (3.5-5.1)
[2018-05-29 06:27] VITALS: Ht 190.5 cm; Wt 87.1 kg
--- NOTE | 2018-05-29 10:19 | NUR ---
DC INSTRUCTIONS GIVEN TO PT/SPOUSE. STATE UNDERSTANDING.
--- NOTE | 2018-05-29 10:45 | NUR ---
DC'D IV CATH FULLY INTACT. PT LEFT UNIT VIA WC AT 1040
--- NOTE | 2018-06-01 09:29 | OP ---
PATIENT NAME: RAINER FOUNTAIN JR MEDICAL RECORD: [id number] :53 LOCATION:[facility] ADMISSION DATE: SURGEON: IRENE EDMONDSON MD DATE OF OPERATION: 05/29/2018 REFERRED BY: Dr. Padilla PREOPERATIVE DIAGNOSES: Nonfunctional PD dialysis catheter and end-stage renal disease and dependence on renal dialysis. POSTOPERATIVE DIAGNOSES: Nonfunctional PD dialysis catheter and end-stage renal disease and dependence on renal dialysis. OPERATION PERFORMED: PD catheter peritoneogram, followed by laparoscopy with revision of PD catheter by repositioning and irrigation. SURGEON: Irene Edmondson MD ANESTHESIA: General endotracheal per CHECK WRITER. PREOPERATIVE NOTE: Rainer Fountain is a 62-year-old white male patient, who has end-stage renal disease and a functioning AV fistula in the left arm. He had a PD catheter placed about 3 months ago and it is not functional. Apparently, it was flushed a couple of times without problems and then would not draw or flush after that. Probably the last time it was flushed was over a month ago. We will try to save it today. DESCRIPTION OF PROCEDURE: Under general anesthesia, the patient was placed in supine position, prepped and draped in sterile manner. Half strength contrast was injected through his PD catheter, which was exiting from the right lower quadrant and realtime C-arm digital fluoroscopy demonstrated no sign of an omental wrap and appropriate positioning of the coil in the pelvis, perhaps a bit higher than optimally in the pelvis with some spacing of the ring consistent with perhaps interposed bowel loops? I elected to go ahead with laparoscopy. The catheter did flush quite easily and actually did return a small amount of fluid on aspiration even at this point. A 5-mm Optiview XCEL port was placed in the left upper quadrant and pneumoperitoneum established with carbon dioxide. A 5-mm 0-degree laparoscope was inserted and soon after that, another 5-mm port was placed in the left lower quadrant. The catheter was seen coursing down into the pelvis. With Trendelenburg position, the bowel fell away fairly well, but not completely. The catheter was gently lifted and from some filmy adhesions to the small bowel. It was then placed back free in the pelvis anterior to all of the intestine and it was irrigated forcefully with saline and irrigated quite easily. The patient was taken out of Trendelenburg and then in level position, the catheter was aspirated and aspirated without problems. The catheter was then heparin locked, clamped and capped. The abdomen was examined and no evidence of any inadvertent injury to the surrounding structures. The scope and ports were removed after evacuating the carbon dioxide. A 0.25% Marcaine without epinephrine was injected into the 2 port sites, which were then closed with interrupted inverted 3-0 Vicryl and Dermabond glue. They were dressed with Maxorb and Tegaderm. The right lower quadrant catheter exit site was dressed with a chlorhexidine Biopatch and Tegaderm and then coiled and covered with a OPERATIVE REPORT [id number] [facility] The patient was awakened and extubated and taken to the recovery room in stable condition. Blood loss during the procedure was less than 5 cc. None was replaced. Sponges, instruments, and needles were accounted for. No drain was used and no surgical specimen was submitted for histopathology. PLAN: The patient should be discharged to home today. An appointment scheduled for him to see the peritoneal dialysis nurse specialist at the [facility] unit here in [place] and the catheter flushed hopefully this week and he can begin at least small exchanges next week. TRANSINT:[id number] Voice Confirmation ID: [id number] DOCUMENT ID: [id number] CC: [place] [facility] [phone] IRENE EDMONDSON MD at 0929 CC: JESSIE PADILLA MD and [facility] [phone] DICTATION DATE: 05/29/18 09 LASTER HAND: 05/29/18 1407 [facility] 05/29/18 [facility] [address] [place] [address]
== END 2018-05-29 10:40 | disposition home or self-care (01) ==
LOC: D.OPS 05:06
PROVIDERS: Surgery
DX: T85.611A Breakdown (mechanical) of intraperitoneal dialysis catheter, initial encounter (principal); N18.6 End stage renal disease; Z99.2 Dependence on renal dialysis; Z01.812 Encounter for preprocedural laboratory examination

== ENCOUNTER → 2018-08-07 11:31 | Outpatient (CLI) | payer MEDICARE, BC ==
[2018-05-29 06:27] VITALS: BMI 24.0
== END | disposition home or self-care (01) ==
LOC: D.RAD 11:31
PROVIDERS: ATTEND Internal Medicine Nephrology
DX: R06.02 Shortness of breath (principal)

== ENCOUNTER → 2018-12-06 15:00 | Outpatient (CLI) | payer MEDICARE, BC ==
[2018-05-29 06:27] VITALS: BMI 24.0
== END | disposition home or self-care (01) ==
LOC: D.RAD 15:00
PROVIDERS: ATTEND Internal Medicine Nephrology
DX: R06.02 Shortness of breath (principal)

== ENCOUNTER → 2019-02-12 10:30 | Outpatient (CLI) | payer MEDICARE, BC ==
[2018-05-29 06:27] VITALS: BMI 24.0
== END | disposition home or self-care (01) ==
LOC: D.RAD 10:30
PROVIDERS: ATTEND Nurse Practitioner Family
DX: R06.02 Shortness of breath (principal); R05 Cough

== ENCOUNTER → 2019-06-05 11:14 | Outpatient (CLI) | payer MEDICARE, BC ==
[2018-05-29 06:27] VITALS: BMI 24.0
[~2019-06-05 11:14] MED LIST changes: +ALBUTEROL SULF8.5 GM INH; +ANORO ELLIPTA1 EACH INH; +CARDURA2 MG PO; +ONDANSETRON ODT8 MG PO; +PHOSLO667 MG PO; +REQUIP0.25 MG PO; +ROCALTROL0.25 MCG PO; +SKELAXIN800 MG PO
== END | disposition home or self-care (01) ==
LOC: D.RAD 11:14
PROVIDERS: ATTEND Internal Medicine Nephrology
DX: R06.02 Shortness of breath (principal); R09.89 Other specified symptoms and signs involving the circulatory and respiratory systems

== ENCOUNTER 2019-06-07 18:48 | Inpatient (IN) | payer MEDICARE, BC ==
[~2019-06-07] VITALS: Ht 190.5 cm; Wt 90.0 kg
[~2019-06-07 18:48] MED LIST changes: -ALBUTEROL SULF8.5 GM INH; -ANORO ELLIPTA1 EACH INH; -CARDURA2 MG PO; -ONDANSETRON ODT8 MG PO; -PHOSLO667 MG PO; -REQUIP0.25 MG PO; -ROCALTROL0.25 MCG PO; -SKELAXIN800 MG PO
[2019-06-07 19:33] LABS: HEMATOCRIT 30.9 % (42.0-54.0); HEMOGLOBIN 9.4 g/dL (13.5-17.5); MCH 30.5 pg (26.0-34.0); MCHC 30.4 g/dL (31.0-37.0); MCV 100.3 fL (80.0-100.0); MEAN PLATELET VOLUME 8.6 fL (7.4-10.4); PLATELET COUNT 293 10x3/uL (130-400); RBC 3.08 10x6/uL (4.20-6.10); RDW 13.8 % (11.5-14.5); WBC 25.9 10x3/uL (4.8-10.8)
[2019-06-07 19:39] LABS: INR 1.05 (0.85-1.17); PROTIME 13.7 SECONDS (11.6-15.0)
[2019-06-07 19:42] LABS: CALC OSMOLALITY 292 mosm/kg (275-300); CALCIUM 7.7 mg/dL (8.5-10.1); CARBON DIOXIDE 28.8 mmol/L (21.0-32.0); CHLORIDE - SERUM 97 mmol/L (98-107); CREATININE - SERUM 8.1 mg/dL (0.6-1.3); POTASSIUM - SERUM 5.4 mmol/L (3.5-5.1); SODIUM 138 mmol/L (136-145); UREA NITROGEN 57 mg/dL (7-18); eGFR NON AFRICAN AMERICAN 7 mL/min (90-120)
[2019-06-07 19:43] LABS: GLUCOSE 114 mg/dL (74-106)
[2019-06-07 20:03] LABS: BASOPHILS 1 % (0-2); LYMPHOCYTES 5 % (15-50); MONOCYTES 3 % (2-11); NEUTROPHILS 86 % (40-80); PLATELET ESTIMATE NORMAL
[2019-06-07 20:06] LABS: ALBUMIN 2.3 g/dL (3.4-5.0); ALKALINE PHOSPHATASE 127 U/L (46-116); ALT (SGPT) 17 U/L (10-68); BILIRUBIN - TOTAL 0.38 mg/dL (0.2-1.3); CKMB 1.9 U/L (0.0-3.6); CREATINE KINASE 59 UL (21-232); PRO BNP 13509 pg/mL (0-125); PROTEIN - SERUM 7.9 g/dL (6.4-8.2)
[2019-06-07 20:08] LABS: TROPONIN-I < 0.017 ng/mL (0.000-0.060)
[2019-06-07] MEDS ORDERED: REQUIP0.25 MG PO (20:29)
[2019-06-07] MEDS ORDERED: PHOSLO667 MG PO (20:31)
[2019-06-07] MEDS ORDERED: ATARAX 25 MG TA25 MG PO (20:37)
[2019-06-07] MEDS ORDERED: CARDURA2 MG PO (20:38)
[2019-06-07] MEDS ORDERED: SKELAXIN800 MG PO (20:44)
[2019-06-07] MEDS ORDERED: TOPROL XL25 MG PO (20:44)
[2019-06-07] MEDS ORDERED: ALBUTEROL SULF8.5 GM INH (20:46)
[2019-06-07] MEDS ORDERED: ROCALTROL0.25 MCG PO (20:46)
[2019-06-07] MEDS ORDERED: ONDANSETRON ODT8 MG PO (20:47)
[2019-06-07] MEDS ORDERED: ANORO ELLIPTA1 EACH INH (20:48)
[2019-06-07 21:03] VITALS: BP 124/61
[2019-06-07 21:07] LABS: THYROID STIMULATING HORMONE 2.75 uIU/mL (0.36-3.74)
--- NOTE | 2019-06-07 22:44 | NUR ---
ROOM CHANGE: REPORT CALLED TO ICU ROOM 2316.
[2019-06-07 23:00] VITALS: BP 124/58
--- NOTE | 2019-06-07 23:00 | NUR ---
Received pt to room 2316 via streatcher. Pt was attached to monitors and all monitors are working correctly. Admission information obtained. No needs voiced. No s/s of distress. Will continue to monitor.
[2019-06-07 23:15] VITALS: BP 124/58
[2019-06-07] MEDS ORDERED: IPRAT-ALBUT 0.5-3 ML UPD (23:21)
[2019-06-07 23:27] VITALS: BP 119/70; BMI 24.8
[2019-06-07 23:30] VITALS: BP 120/73
[2019-06-07 23:45] VITALS: BP 103/58
[2019-06-08] VITALS (12 sets, daily range): BP systolic 92–149; BP diastolic 38–85; Ht 190.5 cm; Wt 90.0 kg
--- NOTE | 2019-06-08 01:00 | NUR ---
Pt is laying in bed with eyes closed. No needs voiced. No s/s of distress. Will continue to monitor.
--- NOTE | 2019-06-08 03:00 | NUR ---
Reassessment completed, see flowsheet for details. Pt is laying in bed with eyes closed at this time. No needs voiced. No s/s of distress noted. Will continue to monitor.
--- NOTE | 2019-06-08 05:00 | NUR ---
Pt is laying in bed with eyes closed at this time. No needs voiced. No s/s of distress noted. Will continue to monitor.
--- NOTE | 2019-06-08 07:08 | NUR ---
REPORT RECIEVED. NO ACUTE DISTRESS. SEE ASSESSMENT. SEE ADL'S. PATIENT DENIES NEEDS AND PAIN AT THIS TIME. A&O X4. PULSES PALP IN ALL EXTREMITIES. R AC SALINE LOCKED. PD FLUID STILL IN ABDOMEN. WAS TOLD DR SHEPHERD STATED TO WORRY ABOUT IT IN THE AM. WILL FOLLOW UP WITH DR SHEPHERD ON THAT AND PATIENTS HOME MEDS.
--- NOTE | 2019-06-08 08:26 | NUR ---
CALLED LABOR ECONOMICS TEACHER AND WAS TOLD THAT [facility] WAS HERE SO THEY COULD GET ME THE PD FLUID. CALLED [facility] 4X. CALLED TIFFANIE SOUBlake AGAIN TO TELL HER THEY WERE NOT ANSWERING. SHE SAID CALL THEM AGAIN. CALLED 2X AGAIN AND NO ANSWER
--- NOTE | 2019-06-08 08:29 | NUR ---
CALLED PHARMACY FOR CALCITROIL AND AMARYL THAT ARE NOT IN [facility]
--- NOTE | 2019-06-08 08:40 | NUR ---
spoke with gagandeep mckeon. stated she would bring up PD fluid
--- NOTE | 2019-06-08 09:36 | NUR ---
have to warm up PD fluid
--- NOTE | 2019-06-08 10:45 | NUR ---
tried to drain patient due ot the fact i was told he had been dwelling for 24 hours. nothing was drained into the pd bag. so started dwelling
--- NOTE | 2019-06-08 17:11 | NUR ---
report called to franny pedroza
--- NOTE | 2019-06-08 17:40 | NUR ---
PT ARRIVED TO THE FLOOR VIA BED. IS CURRENTLY SITTING UP IN THE CHAIR. PD FLUIDS COMPLETE. AT BEDSIDE. RR EVEN AND UNLABORED. DENIES NEEDS OR PAIN AT THIS TIME. WILL CONTINUE TO MONITOR.
--- NOTE | 2019-06-08 19:15 | NUR ---
REPORT RECEIVED, WILL CONTINUE POC. PATIENT IS AAOX4, LYING IN BED, AT BEDSIDE. NO S/S OF DISTRESS OBSERVED, RR EVEN AND UNLABORED ON ROOM AIR. PATIENT DENIES NEEDS AT THIS TIME. CL IN REACH, BED LOCKED AND LOWERED. WILL CTM.
--- NOTE | 2019-06-08 20:00 | NUR ---
PATIENT OFF THE FLOOR WITH @1926 CAME BACK TO ROOM @1944 PATIENT ASKED WHEN MEDS WOULD BE PASSED AND TO INCLUDE PATIENTS AMBIEN FOR SLEEP.
--- NOTE | 2019-06-08 20:39 | NUR ---
PAGED DR. MACKAY FOR SLEEP MED. AWAITING CALL BACK.
--- NOTE | 2019-06-08 21:49 | NUR ---
PAGED DR. MACKAY FOR THE SECOND TIME FOR SLEEP AND PAIN MEDS. AWAITING CALL BACK.
--- NOTE | 2019-06-08 22:25 | NUR ---
RECEIVED CALL BACK FROM WILLAM MITCHELL TO RESTART PATIENTS HOME MEDS OF AMBIEN 10MG PO QHS, MORPHINE 30MG PO BID, HYDROCODONE 10MG PO BID
[2019-06-09] VITALS: BP 136/64
--- NOTE | 2019-06-09 05:10 | NUR ---
I have reviewed this patient and I concur with the Shift Assessment completed by the Licensed Practical Nurse today this shift.
[2019-06-09 05:19] LABS: BASOPHILS 0.2 % (0-2); EOSINOPHILS 3.4 % (0-7); HEMATOCRIT 28.2 % (42.0-54.0); HEMOGLOBIN 8.9 g/dL (13.5-17.5); IMMATURE GRANULOCYTES 2.2 % (0-5); LYMPHOCYTES 5.8 % (15-50); MCH 30.6 pg (26.0-34.0); MCHC 31.6 g/dL (31.0-37.0); MEAN PLATELET VOLUME 8.4 fL (7.4-10.4); MONOCYTES 2.9 % (2-11); NEUTROPHILS 85.5 % (40-80); RBC 2.91 10x6/uL (4.20-6.10); RDW 13.6 % (11.5-14.5)
[2019-06-09 05:20] LABS: MCV 96.9 fL (80.0-100.0); PLATELET COUNT 230 10x3/uL (130-400); WBC 11.6 10x3/uL (4.8-10.8)
[2019-06-09 05:39] LABS: ANION GAP 16.3 mmol/L (8-16); CALCIUM 7.7 mg/dL (8.5-10.1); CARBON DIOXIDE 28.2 mmol/L (21.0-32.0); CREATININE - SERUM 7.8 mg/dL (0.6-1.3); PHOSPHOROUS 8.7 mg/dL (2.5-4.9)
[2019-06-09 05:40] LABS: POTASSIUM - SERUM 4.5 mmol/L (3.5-5.1)
--- NOTE | 2019-06-09 07:32 | NUR ---
REPORT RECIEVED. PT LYING SEMI FOWLERS IN BED. RR EVEN AND UNLABORED NO DISTRESS NOTED. PT HAS A R AC PIV THAT IS SL. BED LOCKED AND IN LOWEST POSITION, CALL LIGHT WITHIN REACH. WILL CTM
[2019-06-09 09:02] VITALS: BP 160/62
[2019-06-09] MEDS ORDERED: LEVOFLOXACIN500 MG PO (09:59)
--- NOTE | 2019-06-09 11:42 | NUR ---
DC PAPERWORK GONE OVER AND SIGNED WITH PT AND HIS . ALL QUESTIONS ANSWERED. TELEMETRY REMOVED AND RETURNED TO PASS WORKER. PIV REMOVED, CATH TIP FULLY INTACT. ALL VALUBLES REMOVED FROM ROOM AND PT TAKING DOWNSTAIRS VIA WHEELCHAIR.
--- NOTE | 2019-06-09 11:48 | MORECARE ---
CASE MANAGEMENT DISCHARGE SUMMARY PATIENT: RAINER FOUNTAIN UNIT: [id number] ADM DATE: 06/07/19 AGE: 63 : 53 SEX: M ROOM/BED: D.2109 AUTHOR: URIEL ABREU PHYSICIAN: REFERRING PHYSICIAN: JESSIE PADILLA MD DATE OF SERVICE: 06/09/19 Discharge Plan Patient Name: RAINER FOUNTAIN Facility: [facility]:[place] : 1955 Planned Disposition: Home Anticipated Discharge Date: Discharge Date: 06/09/2019 Expected LOS: Initial Reviewer: [email or web address] Initial Review Date: 06/09/2019 Generated: 06/09/19 12:48 pm Comments DCP- Discharge Planning Updated by [email or web address]: Keena Quevedo on 06/09/19 10:[address] Patient Name: RAINER FOUNTAIN Admission Status: ER Accout number: [id number] Admission Date: 06-07-2019 : 1955 Admission Diagnosis: Attending: Jessie Padilla Current LOS: 2 Anticipated DC Date: Planned Disposition: Home Primary Insurance: MEDICARE A & B Discharge Planning Comments: CM met with patient at bedside after explaining CM role and obtaining verbal consent. CM discussed availability / needs of home health, REHAB and medical equipment. PATIENT DENIES ANY DISCHARGE NEEDS. Telecom Manager: Keena Quevedo DCPIA - Discharge Planning Initial Assessment Updated by [email or web address]: Keena Quevedo on 06/09/19 11:41 am * Is the patient Alert and Oriented? Yes * PCP GINGER * [facility] * Preadmission Environment Home with Family * ADLs Independent * Additional services required to return to the preadmission environment? No * Can the patient safely return to the preadmission environment? Yes * Has this patient been hospitalized within the prior 30 days at any hospital? No Patient Name: RAINER FOUNTAIN Page [phone] at 1148 All edits/amendments must be made on the electronic document DICTATION DATE: 06/09/19 1148 HEAD ORTHOPEDIC TEAM PHYSICIAN: CHRIST 06/09/19 1148 RPT#: [id number] DC DATE:06/09/19 STATUS: DIS IN [facility] [address] [place] [address] END OF REPORT
--- NOTE | 2019-06-10 12:35 | MORECARE ---
CASE MANAGEMENT DISCHARGE SUMMARY PATIENT: RAINER FOUNTAIN UNIT: [id number] ADM DATE: 06/07/19 AGE: 63 : 53 SEX: M ROOM/BED: D.2109 AUTHOR: URIEL ABREU PHYSICIAN: REFERRING PHYSICIAN: JESSIE PADILLA MD DATE OF SERVICE: 06/10/19 Discharge Plan Patient Name: RAINER FOUNTAIN Facility: [facility]:[place] : 1955 Planned Disposition: Home Anticipated Discharge Date: Discharge Date: 06/09/2019 Expected LOS: Initial Reviewer: [email or web address] Initial Review Date: 06/09/2019 Generated: 06/10/19 1:35 pm Comments DCP- Discharge Planning Updated by [email or web address]: Keena Quevedo on 06/09/19 10:[address] Patient Name: RAINER FOUNTAIN Admission Status: ER Accout number: [id number] Admission Date: 06-07-2019 : 1955 Admission Diagnosis: Attending: Jessie Padilla Current LOS: 2 Anticipated DC Date: Planned Disposition: Home Primary Insurance: MEDICARE A & B Discharge Planning Comments: CM met with patient at bedside after explaining CM role and obtaining verbal consent. CM discussed availability / needs of home health, REHAB and medical equipment. PATIENT DENIES ANY DISCHARGE NEEDS. Automotive Instructor: Keena Quevedo DCPIA - Discharge Planning Initial Assessment Updated by [email or web address]: Keena Quevedo on 06/09/19 11:41 am * Is the patient Alert and Oriented? Yes * PCP GINGER * [facility]acy [facility] * Preadmission Environment Home with Family * ADLs Independent * Additional services required to return to the preadmission environment? No * Can the patient safely return to the preadmission environment? Yes * Has this patient been hospitalized within the prior 30 days at any hospital? No Last DP export: 06/09/19 10:48 a Patient Name: RAINER FOUNTAIN Page [phone] at 1235 All edits/amendments must be made on the electronic document DICTATION DATE: 06/10/19 1234 CAISSON WORKER: CHRIST 06/10/19 1234 RPT#: [id number] DC DATE:06/09/19 STATUS: DIS IN [facility] [address] [place] [address] END OF REPORT
== END 2019-06-09 11:46 | disposition home or self-care (01) | DRG 193 ==
LOC: D.ER 18:48 → D.ICU 20:34 → D.M2 20:34 → D.ICU 22:42 → D.M2 06-08 17:41
PROVIDERS: Family Medicine; ADMIT Internal Medicine Nephrology; ATTEND Internal Medicine Nephrology
DX: J18.9 Pneumonia, unspecified organism (principal); N18.6 End stage renal disease; I12.0 Hypertensive chronic kidney disease with stage 5 chronic kidney disease or end stage renal disease; E11.22 Type 2 diabetes mellitus with diabetic chronic kidney disease; Z99.2 Dependence on renal dialysis; I95.9 Hypotension, unspecified; J44.9 Chronic obstructive pulmonary disease, unspecified; K21.9 Gastro-esophageal reflux disease without esophagitis; F17.200 Nicotine dependence, unspecified, uncomplicated

== ENCOUNTER 2019-09-13 14:13 | Inpatient (IN) | payer MEDICARE, BC ==
[~2019-09-13] VITALS: Ht 190.5 cm; Wt 84.1 kg
[~2019-09-13 14:13] MED LIST changes: +ALBUTEROL SULF8.5 GM INH; +ANORO ELLIPTA1 EACH INH; +CARDURA2 MG PO; +LEVOFLOXACIN500 MG PO; +ONDANSETRON ODT8 MG PO; +PHOSLO667 MG PO; +REQUIP0.25 MG PO; +ROCALTROL0.25 MCG PO; +SKELAXIN800 MG PO
[2019-09-13 15:06] LABS: BASOPHILS 0.3 % (0-2); EOSINOPHILS 3.2 % (0-7); HEMATOCRIT 34.9 % (42.0-54.0); HEMOGLOBIN 10.4 g/dL (13.5-17.5); IMMATURE GRANULOCYTES 2.2 % (0-5); LYMPHOCYTES 4.6 % (15-50); MCH 29.5 pg (26.0-34.0); MCHC 29.8 g/dL (31.0-37.0); MCV 99.1 fL (80.0-100.0); MEAN PLATELET VOLUME 8.7 fL (7.4-10.4); MONOCYTES 3.8 % (2-11); NEUTROPHILS 85.9 % (40-80); PLATELET COUNT 257 10x3/uL (130-400); RBC 3.52 10x6/uL (4.20-6.10); RDW 14.2 % (11.5-14.5); WBC 13.1 10x3/uL (4.8-10.8)
[2019-09-13 15:28] LABS: CALC OSMOLALITY 287 mosm/kg (275-300); CALCIUM 8.2 mg/dL (8.5-10.1); CARBON DIOXIDE 35.1 mmol/L (21.0-32.0); CHLORIDE - SERUM 100 mmol/L (98-107); CREATININE - SERUM 6.1 mg/dL (0.6-1.3); GLUCOSE 116 mg/dL (74-106); SODIUM 140 mmol/L (136-145); UREA NITROGEN 35 mg/dL (7-18); eGFR NON AFRICAN AMERICAN 10 mL/min (90-120)
[2019-09-13 15:29] LABS: APTT 34.6 SECONDS (22.8-39.4); PROTIME 13.1 SECONDS (11.6-15.0)
[2019-09-13 16:13] LABS: ALKALINE PHOSPHATASE 134 U/L (30-120); ALT (SGPT) 14 U/L (10-68); BILIRUBIN - TOTAL 0.77 mg/dL (0.2-1.3); CKMB 8.5 U/L (0.0-3.6); CREATINE KINASE 59 UL (21-232); PROTEIN - SERUM 7.3 g/dL (6.4-8.2)
[2019-09-13 16:18] LABS: FERRITIN 1413 ng/mL (3-244); TROPONIN-I 0.077 ng/mL (0.000-0.060)
[2019-09-13 19:03] VITALS: BP 162/76
--- NOTE | 2019-09-13 19:45 | NUR ---
PT ARRIVED TO M2 FLOOR VIA WHEELCHAIR BROUGHT BY HOSPITAL STAFF. ASSIST PT TO RESTROOM AND BACK TO BED. NO SIGNS OF DISTRESS NOTED. CALL LIGHT WITH IN REACH. WILL CONTINUE TO MONITOR.
--- NOTE | 2019-09-13 19:48 | NUR ---
PATIENT TRANSFERED TO [address] RECIEVING NURSE. PATIENT TOLERATED WELL
--- NOTE | 2019-09-13 19:49 | NUR ---
PT ARRIVED FROM ER
[2019-09-13 20:02] VITALS: BP 160/72
[2019-09-14] MEDS ORDERED: LASIX80 MG PO (05:45)
[2019-09-14] MEDS ORDERED: GLIMEPIRIDE4 MG PO (05:49)
[2019-09-14] MEDS ORDERED: ASPIRIN325 MG PO (05:56)
[2019-09-14] MEDS ORDERED: BENZONATATE (05:58)
[2019-09-14] MEDS ORDERED: VIBRAMYCIN 100100 MG PO (06:02)
[2019-09-14] MEDS ORDERED: TESSALON PERLE100 MG PO (06:04)
[2019-09-14 08:43] VITALS: BP 149/69
[2019-09-14 11:01] LABS: BASOPHILS 0.1 % (0-2); HEMATOCRIT 31.1 % (42.0-54.0); HEMOGLOBIN 9.3 g/dL (13.5-17.5); LYMPHOCYTES 5.1 % (15-50); MCH 29.2 pg (26.0-34.0); MCHC 29.9 g/dL (31.0-37.0); MCV 97.8 fL (80.0-100.0); MEAN PLATELET VOLUME 8.5 fL (7.4-10.4); MONOCYTES 3.8 % (2-11); PLATELET COUNT 223 10x3/uL (130-400); RBC 3.18 10x6/uL (4.20-6.10); RDW 13.9 % (11.5-14.5); WBC 11.5 10x3/uL (4.8-10.8)
[2019-09-14 11:31] LABS: ALBUMIN 1.8 g/dL (3.4-5.0); ANION GAP 12.3 mmol/L (8-16); BILIRUBIN - TOTAL 0.56 mg/dL (0.2-1.3); CALCIUM 7.7 mg/dL (8.5-10.1); CARBON DIOXIDE 30.4 mmol/L (21.0-32.0); CREATININE - SERUM 6.8 mg/dL (0.6-1.3); POTASSIUM - SERUM 3.7 mmol/L (3.5-5.1); PROTEIN - SERUM 6.5 g/dL (6.4-8.2)
[2019-09-14 11:32] LABS: TROPONIN-I 0.081 ng/mL (0.000-0.060)
[2019-09-14 14:18] VITALS: Ht 190.5 cm; Wt 84.1 kg
[2019-09-14] MEDS ORDERED: EPOGEN4000 U/ML SQ (14:37)
--- NOTE | 2019-09-14 18:36 | NUR ---
I CONCUR WITH THE RESTAURANT COOK ASSESMENT OF THIS PATIENT.
--- NOTE | 2019-09-14 19:10 | NUR ---
REPORT RECEIVED, PT CARE ASSUMED. INTRODUCED SELF AND WROTE NAME ON BOARD. NO S/S OF DISTRESS, AROUSES TO VOICE, ORIENTED X4, LETHARGIC. DENIES ANY NEEDS AT THIS TIME. BED IN LOWEST POSITION, SR X2, CALL LIGHT AND URINAL WITHIN REACH. WILL CONTINUE TO MONITOR.
[2019-09-14 20:00] VITALS: BP 128/62
--- NOTE | 2019-09-14 22:27 | NUR ---
VSS BUT PRIMARY NURSE REPORTS PT IS LETHARGIC AND BLOOD SUGAR KEEPS DROPPING. PT ROUSABLE BY PHYSICAL STIMULI AND HAS RECIEVED IV DEXTROSE. INITIATING TELEMETRY FOR BETTER MONITORING AND WILL CPOC. WHEN ATTEMPT TO GET PATIENT TO EAT FOOD, VERSUS IV DEXTROSE TO SEE IF THAT WILL HELP STABILIZE BLOODSUGAR LEVEL. O2 SAT STAYING AROUND 91%. MONITOR. INTERVENTIONS INDICATED.
--- NOTE | 2019-09-14 22:30 | NUR ---
VSS, PT LETHARGIC, AROUSES TO PHYSICAL STIMULI, DOZES OFF DURING CONVERSATION. FSBS 105. TELEMETRY INTIATED, SR 65, PER RECOVERY SPECIALIST. PT STILL DIFFICULT TO AROUSE, FSBS 94. SPOKE WITH CHARGE NURSE, ADVISED TO CALL RAPID. RAPID RESPONSE CALLED DUE TO DECREASED LOC.
--- NOTE | 2019-09-14 23:02 | NUR ---
PT ARRIVED VIA BED WITH HOSPITAL STAFF. PT IS AWAKE BUT VERY LETHARGIC AND STRUGALING TO BREATH. HE IS BREATHING 32 BREATH PER MINUTE IS ON 6L HIGH FLOW NC AND O2 SAT IS 90%. IS HERE AT THIS TIME AND VERBALIZES THAT HE IS GOING TO INTUBATE PT AT THIS TIME. PT IS ON ISOLATION FOR POSSIBLE COVID-19. RESULTS STILL PENDING. ALL HOSPITAL STAFF HAVE ON APPROPIRATE PPE. 2321 PT WAS INTUBATED AT THIS TIME BY . V.O TO GIVE 100MC OF FENTYLE AT THIS TIME IV. V.O READY BACK CORRECT AND TO START A DIPRIVAN DRIP PER PROTOCOL. V.O READ BACK CORRECT. ALSO PUT IN A 22G IV IN THE LEFT AC DUE TO THE RIGHT FORARM INFILTRATING. DC THIS SITE AT THIS TIME. A 20G WAS ALSO PUT IN THE RIGHT UNDER FORARM FOR SECOND ACCESS IF NEEDED. PT TOLERATED WELL. PER V.O TO PUT ON BILAT WRIST RESTRAINTS AT THIS TIME. BED IS LOW,SIDE RIALSX2,CALL LIGHT WITHIN REACH.
[2019-09-15] VITALS (25 sets, daily range): BP systolic 73–141; BP diastolic 56–109
--- NOTE | 2019-09-15 00:17 | NUR ---
PAGED AT THIS TIME
--- NOTE | 2019-09-15 01:34 | NUR ---
JUST NOW GOT REPORT ON PT FROM GETTING HIM FROM THE FLOOR DUE TO RAPID RESPONSE. ANNALEE HARDING
--- NOTE | 2019-09-15 01:40 | NUR ---
PT , MERCEDES FOUNTAIN CALLED AND UPDATED REGARDING CHANGE IN PT STATUS. ALL QUESTIONS ANSWERED.
--- NOTE | 2019-09-15 02:00 | NUR ---
RT JUST CAME OUT OF PT ROOM FROM DOING ABG'S. VERBALIZED THAT PT BLOOD SUGAR IS 32. WILL GIVE 50% DEXTROSE 50ML PER PROTOCOL AND MONITOR. VSS. PT IS SEDATED/INTUBATED.
--- NOTE | 2019-09-15 02:38 | NUR ---
BS IS 159. VSS.
[2019-09-15 03:58] LABS: BASOPHILS 0.1 % (0-2); EOSINOPHILS 0.2 % (0-7); HEMATOCRIT 27.2 % (42.0-54.0); HEMOGLOBIN 8.1 g/dL (13.5-17.5); LYMPHOCYTES 3.1 % (15-50); MCH 28.9 pg (26.0-34.0); MCHC 29.8 g/dL (31.0-37.0); MCV 97.1 fL (80.0-100.0); MEAN PLATELET VOLUME 8.8 fL (7.4-10.4); MONOCYTES 3.2 % (2-11); NEUTROPHILS 91.4 % (40-80); PLATELET COUNT 182 10x3/uL (130-400); RDW 14.1 % (11.5-14.5)
[2019-09-15 04:14] LABS: CALCIUM 7.7 mg/dL (8.5-10.1); CARBON DIOXIDE 28.6 mmol/L (21.0-32.0); CREATININE - SERUM 7.3 mg/dL (0.6-1.3); PHOSPHOROUS 8.8 mg/dL (2.5-4.9); POTASSIUM - SERUM 3.6 mmol/L (3.5-5.1)
--- NOTE | 2019-09-15 04:30 | NUR ---
BS 112. VSS. PT IS INTUBATED/SEDATED. BED IS LOW,SIDE RIALSX2,CALL LIGHT WITHIN REACH. WILL CONTINUE TO MONITOR
--- NOTE | 2019-09-15 06:13 | NUR ---
SON CALLED AND PROVIDED PASSCODE AND WAS GIVEN AN UPDATE
--- NOTE | 2019-09-15 06:32 | NUR ---
PUT ON ALL PPE APPROPRATELY. DROPPED OGT AT THIS TIME ORDER. GOT GASTRIC RETURN AND HEARD INPLACE C ACCULTATION. PT TOLERATED WELL. VSS. HOOKED UP TO LOW-INTERMITTEN SUCTION. BED IS LOW,SIDE RIALSX2,CALL LGIHT WITHIN REACH.WILL CONITNUE TO MONITRO
--- NOTE | 2019-09-15 07:00 | NUR ---
BEDSIDE REPORT RECEIVED. SHIFT ASSESSMENT COMPLETED PER FLOWSHEET, SEE FLOWSHEET FOR INFORMATION. PT RESTING IN BED WITH EYES CLOSED.
--- NOTE | 2019-09-15 09:00 | NUR ---
BEDBATH GIVEN, LARGE BM NOTED. VSS. WILL CONT TO MONITOR.
--- NOTE | 2019-09-15 11:00 | NUR ---
REASSESSMENT COMPLETED PER FLOWSHEET, SEE FLOWSHEET FOR INFORMATION. CHG BEDBATH GIVEN. WILL CONT TO MONITOR.
--- NOTE | 2019-09-15 13:00 | NUR ---
AT BEDSIDE. VSS. WILL CONT TO MONITOR.
--- NOTE | 2019-09-15 15:00 | NUR ---
DIALYSIS NURSE AT BEDSIDE. REASSESSMENT COMPLETED PER FLOWSHEET, SEE FLOWSHEET FOR INFORMATION. WILL CONT TO MONITOR.
--- NOTE | 2019-09-15 17:00 | NUR ---
DIALYSIS NURSE AT BEDSIDE. VSS. WILL CONT TO MONITOR.
--- NOTE | 2019-09-15 18:13 | NUR ---
LAB CALLED, PT NEGATIVE FOR COVID 19 VIRUS. WILL CONT TO MONITOR.
--- NOTE | 2019-09-15 18:14 | NUR ---
ON THE PHONE WITH MERCEDES, UPDATE GIVEN. NO ACUTE NEEDS OR DISTRESS NOTED AT THIS TIME. VSS. WILL CONT TO MONITOR.
--- NOTE | 2019-09-15 19:15 | NUR ---
RECIVED REPORT AT BEDSIDE. PT HAS COME BACK NEGATIVE FOR COVID SO ISOLATION HAS BEEN LIFTED. PT IS INTUBATED/SEDATED BUT OPENS EYES WHEN CALLED NAME AND IS COOROPERATIVE AND WILL SHAKE HEAD YES OR NO WHEN ASKED QUESTIONS. VSS. RESTRAITS ARE OBSERVED WITH GOOD CAP REFILL AND CIRCULATION TO HANDS. HE IS A LEFT ARM RESERVE. WILL PERFORM FULL ASSESSMENT AND DOCUMENT IN FLOW SHEET. REPOSITIONED FOR COMFORT AND BRIDGED HEELS OFF OF BED WHILE SUPPORTING THE KNEES. BED IS LOW,SIDE RIALSX2,CALL LIGHT WITHIN REACH. WILL CONITNUE TO MONITOR
--- NOTE | 2019-09-15 19:58 | NUR ---
BS IS 77
--- NOTE | 2019-09-15 21:00 | NUR ---
RT IS IN PT ROOM AND HE YELLS FOR HELP BC PT WAS TRYING TO REACH FOR ET TUBE. PT IS AWAKE AND FIGHTING RESTRAINTS. AFTER TRYING TO GET HIM TO CALM DOWN HE CONTINUED TO SHOW ANXIETY. I INCREASED FENTYLE TO 250MCG/MIN AT THIS TIME PER PROTOCOL. VSS. I WILL CONTINUE TO MONITOR SEDATION. BED IS LOW,SIDE RAILSX2,CALL LIGTH WITHIN REACH.
--- NOTE | 2019-09-15 22:49 | NUR ---
MERCEDES CALLED AT THIS TIME AND PROVIDED CORRECT PASS CODE. PROVIDED UPDATE FOR HER. SHE VOICED "THANK YOU SO MUCH, TELL HIM I LOVE HIM".
--- NOTE | 2019-09-15 23:02 | NUR ---
BS IS 97. JUST MONITORING CLOSELY SINCE PT HAS HAD LOW BS THROUGH OUT THE DAY. HE IS RESTING WITH EYES CLOSED. VSS. BED IS LOW,SIDE RAILSX2,CALL LIGHT WITHN REACH. WILL ONTINUE TO MONITOR
--- NOTE | 2019-09-15 23:03 | NUR ---
ALSO PERFORMED RE-ASSESSMENT AT THIS TIME AND WILL DOC IN FLOW SHEET
[2019-09-16] VITALS (22 sets, daily range): BP systolic 90–178; BP diastolic 60–107
--- NOTE | 2019-09-16 01:00 | NUR ---
PT IS RESTING IN BED WITH EYES CLOSED. WHEN CALLED NAME HE QUICKLY AWAKENS. REPOSITIONED FOR COMFORT AND I ASKED IF HE WAS OK. HE NOODED HEAD UP AND DOWN. VSS. PERFORMED ORAL CARE AT THIS TIME WELL. BED IS LOW,SIDE RIALSX2,CALL LIGHT ULICES BYNUM. WILL CONTINUE TO MONITOR
--- NOTE | 2019-09-16 03:04 | NUR ---
PT IS RESTING IN BED WITH EYES CLOSED. VSS. BED IS LOW,SIDE RIALSX2,CALL LIGHT WITHIN REACH. WILL CONTINUE TO MONITOR
[2019-09-16 03:40] LABS: BASOPHILS 0.2 % (0-2); EOSINOPHILS 1.8 % (0-7); HEMATOCRIT 32.2 % (42.0-54.0); HEMOGLOBIN 9.7 g/dL (13.5-17.5); IMMATURE GRANULOCYTES 2.3 % (0-5); LYMPHOCYTES 6.5 % (15-50); MCHC 30.1 g/dL (31.0-37.0); MCV 96.4 fL (80.0-100.0); MEAN PLATELET VOLUME 8.8 fL (7.4-10.4); MONOCYTES 5.4 % (2-11); NEUTROPHILS 83.8 % (40-80); PLATELET COUNT 195 10x3/uL (130-400); RBC 3.34 10x6/uL (4.20-6.10); RDW 14.1 % (11.5-14.5); WBC 8.4 10x3/uL (4.8-10.8)
[2019-09-16 04:13] LABS: ANION GAP 12.9 mmol/L (8-16); CALCIUM 7.5 mg/dL (8.5-10.1); CARBON DIOXIDE 27.5 mmol/L (21.0-32.0); MAGNESIUM - SERUM 1.5 mg/dL (1.8-2.4); POTASSIUM - SERUM 3.4 mmol/L (3.5-5.1)
[2019-09-16 04:14] LABS: PHOSPHOROUS 5.7 mg/dL (2.5-4.9)
[2019-09-16 04:15] LABS: CREATININE - SERUM 5.1 mg/dL (0.6-1.3); TROPONIN-I 0.097 ng/mL (0.000-0.060)
--- NOTE | 2019-09-16 05:43 | NUR ---
PT IS RESTING IN BED WITH EYES CLOSED. VSS. REPOSITIONED FOR COMFORT. OBTAINIGN ALL I/O'S AT THIS TIME. PT TOLERATED WELL. BED IS LOW,SIDE RAILSX2,CALL LIGHT WITHIN RECH. WILL CONTINUE TO MONITOR
--- NOTE | 2019-09-16 06:29 | NUR ---
CHECKED BS, 117. NO COVERAGE NEEDED. PT IS RESTING WITH EYE CLOSED. AWOKE QUICKLY WHEN CALLED NAME. I REPOSITIONED HIM FOR COMFORT WHILE BRIDING HEELS OFF BED. VSS. BED IS LOW,SIDE RIALSX2,CALL LIGHT WTHIN REACH.
--- NOTE | 2019-09-16 07:00 | NUR ---
BEDSIDE REPORT RECEIVED. SHIFT ASSESSMENT COMPLETED PER FLOWSHEET, SEE FLOWSHEET FOR INFORMATION. PT RESTING IN BED WITH EYES CLOSED, PT EASILY AWAKENS AND OBEYS COMMANDS, DRIFTS BACK TO SLEEP EASILY. VSS. NO ACUTE NEEDS OR DISTRESS NOTED AT THIS TIME. WILL CONT TO MONITOR.
--- NOTE | 2019-09-16 09:00 | NUR ---
MOVING PT TO ROOM 2310. INFORMED PT ON UPDATE. PT RESTING IN BED WITH EYES OPEN. 0900 MEDICATIONS GIVEN. VSS. WILL CONT TO MONITOR.
--- NOTE | 2019-09-16 10:19 | NUR ---
PT NOTED AGGITATED ON VENT, COUGHING AND BITING AT TUBE. SPOKE TO PT TO REORIENTATE, UNSUCCESSFUL, PT STILL AGGITATED. PT NODDED HEAD TO STATE UNDERSTANDING TO CALM DOWN AND MOUTHED THAT HE WAS TRYING TO CALM DOWN. PRN VERSED ADMIN FOR SEDATION TO HELP PT CALM DOWN. PT NOW RELAXED AND NO LONGER AGGITATED. VSS. WILL CONTINUE PLAN OF CARE.
--- NOTE | 2019-09-16 10:22 | NUR ---
WHEN PT WAS MOVED ALL VS WERE LOST, DOCUMENTED WHAT I REMEBERED. WILL CONT TO MONITOR.
--- NOTE | 2019-09-16 12:43 | NUR ---
NO ACUTE DISTRESS NOTED. VSS. PT LYING IN BED ON VENT AT THIS TIME WITH EYES CLOSED, OPEN EYES TO STIMULATION. FOLLOWS COMMANDS. TURNED Q2H, ORAL CARE PROVIDED Q2H. WILL CONTINUE PLAN OF CARE.
--- NOTE | 2019-09-16 13:51 | NUR ---
CHF BATH PROVIDED. TOTAL LINEN CHANGE PROVIDED. TOTAL LINEN CHANGE PROVIDED. DRESSINGS CHANGED BETWEEN PTS TOES, SCAB/SORES IN BETWEEN TOES TO LT FOOT. MEPILEX DRESSING PLACED IN BETWEEN TOES. NO ACUTE DISTRESS NOTED. VSS. WILL CONTINUE PLAN OF CARE.
--- NOTE | 2019-09-16 19:00 | NUR ---
ASSESSMENT COMPLETED. VENT AT 30%. OGT PLACEMENT CHECKED, NO RESIDUALS. REPOSITIONED AND ORAL CARE PROVIDED
--- NOTE | 2019-09-16 21:00 | NUR ---
REPOSITIONED AND ORAL CARE PROVIDED. PATIENT FOLLOWING COMMANDS
--- NOTE | 2019-09-16 21:30 | NUR ---
CALLED AND UPDATE GIVEN AFTER CONFIRMED PASSCODE. PATIENT TRYING TO COME OUT OF RESTRAINTS AND SIT UP.
--- NOTE | 2019-09-16 23:00 | NUR ---
RE-ASSESSMENT COMPLETED. NO CHANGES SINCE LAST ASSESSMENT
[2019-09-17] VITALS (22 sets, daily range): BP systolic 92–179; BP diastolic 32–99
--- NOTE | 2019-09-17 01:00 | NUR ---
REPOSITIONED AND ORAL CARE PROVIDED
--- NOTE | 2019-09-17 03:00 | NUR ---
RE-ASSESSMENT COMPLETED. NO CHANGES SINCE LAST ASSESSMENT
[2019-09-17 03:46] LABS: BASOPHILS 0.3 % (0-2); EOSINOPHILS 0.5 % (0-7); HEMATOCRIT 29.9 % (42.0-54.0); HEMOGLOBIN 9.2 g/dL (13.5-17.5); IMMATURE GRANULOCYTES 2.2 % (0-5); LYMPHOCYTES 5.3 % (15-50); MCH 28.7 pg (26.0-34.0); MCHC 30.8 g/dL (31.0-37.0); MEAN PLATELET VOLUME 8.6 fL (7.4-10.4); MONOCYTES 4.6 % (2-11); NEUTROPHILS 87.1 % (40-80); PLATELET COUNT 202 10x3/uL (130-400); RBC 3.21 10x6/uL (4.20-6.10); RDW 13.3 % (11.5-14.5); WBC 8.6 10x3/uL (4.8-10.8)
[2019-09-17 03:59] LABS: MCV 93.1 fL (80.0-100.0)
[2019-09-17 04:04] LABS: ANION GAP 13.7 mmol/L (8-16); CALCIUM 7.6 mg/dL (8.5-10.1); CREATININE - SERUM 6.1 mg/dL (0.6-1.3); MAGNESIUM - SERUM 1.7 mg/dL (1.8-2.4); PHOSPHOROUS 6.6 mg/dL (2.5-4.9); POTASSIUM - SERUM 3.7 mmol/L (3.5-5.1)
--- NOTE | 2019-09-17 05:00 | NUR ---
REPOSITIONED AND ORAL CARE PROVIDED
--- NOTE | 2019-09-17 07:15 | NUR ---
REPORT RECEIVED. PT IS A LEFT ARM RESERVE. FISTULA IN LEFT ARM. PT DOES DIALYSIS , , AND TUESDAY. PT IS ON VENT AND HAS OGT. NEPRO INFUSING AT 20ML/HR. PT HAS A RIGHT FOREARM WITH D5W AT 100ML/HR AND FENTANYL AT 400MCG. PT GETS BLOOD SUGARS CHECKED ACHS. PT IS ANURIC. ALSO IN SOFT WRIST RESTRAINTS. PT HOOKED UP TO MONITORS. VSS. WILL CONTINUE TO MONITOR.
--- NOTE | 2019-09-17 09:08 | NUR ---
Nutrition follow-up: Pt intubated, sedated Nepro infusing @ 20 ml/hr -> goar rate 50 ml/hr Labs reviewed RDN following.
--- NOTE | 2019-09-17 14:46 | NUR ---
, MERCEDES, CALLED AND ASKS THAT HER BE RETESTED FOR COVID BEFORE BEING DISCHARGED HOME.
--- NOTE | 2019-09-17 21:42 | NUR ---
PAGED DR. MONSON TO NOTIFY OF NEW ONSET A-FIB.
--- NOTE | 2019-09-17 21:51 | NUR ---
SPOKE WITH WILLAM HENSON, NEW ORDER RECEIVED.
--- NOTE | 2019-09-17 21:56 | NUR ---
CARDIOLOGY PAGED WAITING CALL BACK.
[2019-09-18] VITALS (24 sets, daily range): BP systolic 89–154; BP diastolic 59–109
--- NOTE | 2019-09-18 03:14 | NUR ---
TUBE FEED INCREASED TO 30ML/HR WITH NO RESIDUAL AT THIS TIME.
[2019-09-18 03:26] LABS: BASOPHILS 0.2 % (0-2); EOSINOPHILS 0.6 % (0-7); HEMATOCRIT 27.7 % (42.0-54.0); HEMOGLOBIN 8.7 g/dL (13.5-17.5); IMMATURE GRANULOCYTES 1.1 % (0-5); LYMPHOCYTES 3.6 % (15-50); MCHC 31.4 g/dL (31.0-37.0); MCV 92.3 fL (80.0-100.0); MEAN PLATELET VOLUME 8.7 fL (7.4-10.4); NEUTROPHILS 90.5 % (40-80); PLATELET COUNT 211 10x3/uL (130-400); RDW 13.3 % (11.5-14.5); WBC 10.4 10x3/uL (4.8-10.8)
[2019-09-18 03:39] LABS: ANION GAP 13.4 mmol/L (8-16); CALCIUM 7.9 mg/dL (8.5-10.1); CARBON DIOXIDE 27.4 mmol/L (21.0-32.0); POTASSIUM - SERUM 3.8 mmol/L (3.5-5.1)
[2019-09-18 03:49] LABS: CREATININE - SERUM 4.4 mg/dL (0.6-1.3); PHOSPHOROUS 4.3 mg/dL (2.5-4.9)
--- NOTE | 2019-09-18 13:00 | NUR ---
HD STOPPED BY HD TECH, COMPLETED ONLY 1.5L OFF, PATIENT HAVING MULTIPLE PVC'S, HR OF 80, AAO, OTHER VSS
--- NOTE | 2019-09-18 13:30 | NUR ---
CALLED TO ROOM, INCONTINENT OF STOOL, SKINCARE AND LINEN CHANGE, COMPLETED, STATED HE NEEDED TO STILL USE THE BATHROOM MORE, REQUESTED BSC, OOB TO BSC, VERY WEAK, LARGE URINE STOOL TO BARKER BTB WITH ASSIST X2 PERSONNEL, REPOSITONED FOR COMFORT, CALL LIGHT IN REACH, NO OTHER NEEDS AT THIS TIME
--- NOTE | 2019-09-18 19:14 | MORECARE ---
CASE MANAGEMENT DISCHARGE SUMMARY PATIENT: RAINER FOUNTAIN JR UNIT: [id number] ADM DATE: 09/13/19 AGE: 63 : 53 SEX: M ROOM/BED: D.2310 AUTHOR: URIEL ABREU PHYSICIAN: REFERRING PHYSICIAN: JESSIE MACKAY MD DATE OF SERVICE: 09/18/19 Discharge Plan Patient Name: RAINER FOUNTAIN [facility] : 1955 Planned Disposition: Home Anticipated Discharge Date: Discharge Date: Expected LOS: Initial Reviewer: [email or web address] Initial Review Date: 09/13/2019 Generated: 09/18/19 8:13 pm Patient Name: RAINER FOUNTAIN Page 42868 at 1914 All edits/amendments must be made on the electronic document DICTATION DATE: 09/18/191912 MILL STENCILER: CHRIST 09/18/191912 RPT#: [id number] DC DATE: STATUS: ADM IN [facility] [address] [place] [address] END OF REPORT
--- NOTE | 2019-09-18 19:21 | MORECARE ---
CASE MANAGEMENT DISCHARGE SUMMARY PATIENT: RAINER FOUNTAIN JR UNIT: [id number] ADM DATE: 09/13/19 AGE: 63 : 53 SEX: M ROOM/BED: D.2310 AUTHOR: URIEL ABREU PHYSICIAN: REFERRING PHYSICIAN: JESSIE PADILLA MD DATE OF SERVICE: 09/18/19 Discharge Plan Patient Name: RAINER FOUNTAIN Facility: [facility]:[place] : 1955 Planned Disposition: Home Anticipated Discharge Date: Discharge Date: Expected LOS: Initial Reviewer: [email or web address] Initial Review Date: 09/13/2019 Generated: 09/18/19 8:21 pm Comments DCP- Discharge Planning Updated by [email or web address]: Zahira Drake on 09/18/19 6:[address] Patient Name: RAINER FOUNTAIN Admission Status: ER Accout number: [id number] Admission Date: 09-13-2019 : 1955 Admission Diagnosis:HEART FAILURE, UNSPECIFIED Attending: Jessie Padilla Current LOS: 5 Anticipated DC Date: Planned Disposition: Home Primary Insurance: MEDICARE A & B Discharge Planning Comments: CM met with patient to complete initial dc planning assessment. CM educated patient on the CM role and verbal consent given by patient to complete assessment. Patient lives at home with his where he is independent with his care. 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 Patient does PD at home. Patient denied known discharge needs at this time. CM will continue to follow and will assist as needed with dc plans/needs. Sugar Trucker: Zahira Drake Appended by Zahira Drake on 09/18/2019 19:18 CDT: CM notified Lani Carbajal that patient is inpatient. DCPIA - Discharge Planning Initial Assessment Updated by [email or web address]: Zahira Drake on 09/18/19 7:15 pm * Is the patient Alert and Oriented? Yes * How many steps to enter\exit or inside your home? * PCP GINGER * [facility] * Preadmission Environment Home with Family * ADLs Independent * Equipment Walker * List name and contact numbers for known caregivers / representatives who currently or will assist patient after discharge: MERCEDES FOUNTAIN - SPOUSE - [phone] * Verbal permission to speak to the caregivers and representatives has been obtained from the patient. Yes * Please name any agencies selected above. [facility] * Additional services required to return to the preadmission environment? No * Can the patient safely return to the preadmission environment? Yes * Has this patient been hospitalized within the prior 30 days at any hospital? No Last DP export: 09/18/19 6:14 p Patient Name: RAINER FOUNTAIN Page 53941 at 1920 All edits/amendments must be made on the electronic document DICTATION DATE: 09/18/191920 DONATION WORKER: CHRIST 09/18/191920 RPT#: [id number] DC DATE: STATUS: ADM IN [facility] [address] [place] [address] END OF REPORT
[2019-09-19] VITALS (8 sets, daily range): BP systolic 108–146; BP diastolic 56–88
[2019-09-19 04:00] LABS: BASOPHILS 0.2 % (0-2); EOSINOPHILS 1.1 % (0-7); HEMATOCRIT 26.6 % (42.0-54.0); IMMATURE GRANULOCYTES 1.2 % (0-5); LYMPHOCYTES 4.4 % (15-50); MCH 28.6 pg (26.0-34.0); MCHC 30.1 g/dL (31.0-37.0); MEAN PLATELET VOLUME 9.1 fL (7.4-10.4); MONOCYTES 4.1 % (2-11); PLATELET COUNT 213 10x3/uL (130-400); RDW 13.5 % (11.5-14.5); WBC 10.4 10x3/uL (4.8-10.8)
[2019-09-19 04:18] LABS: CALCIUM 7.6 mg/dL (8.5-10.1); CARBON DIOXIDE 26.9 mmol/L (21.0-32.0); CREATININE - SERUM 3.3 mg/dL (0.6-1.3); PHOSPHOROUS 3.7 mg/dL (2.5-4.9)
[2019-09-19 04:21] LABS: POTASSIUM - SERUM 2.9 mmol/L (3.5-5.1)
--- NOTE | 2019-09-19 07:15 | NUR ---
REPORT RECIEVED, SHIFT ASSESSMENT COMPLETE, PT IS ALERT AND ORIENTED, ON 2L NC WITH 97% O2 SAT. ALL PPP, VSS, CALL LIGHT IN REACH
--- NOTE | 2019-09-19 09:00 | NUR ---
PT RESTING AT THIS TIME, VSS, CALL LIGHT IN REACH
--- NOTE | 2019-09-19 09:17 | NUR ---
Nutrition follow-up: Extubated Diet advanced to full liquids Dailysis pt Wt: 180# BIPAP on RDN will monitor patients diet advancement and tolerance. RRD following.
--- NOTE | 2019-09-19 11:00 | NUR ---
PT AWAKE AT THIS TIME, WATCHING TV, NO NEEDS NOTED
--- NOTE | 2019-09-19 11:25 | NUR ---
DR. PIPER AT BEDSIDE, UPDATE GIVEN
--- NOTE | 2019-09-19 13:17 | NUR ---
PT RESTING AT THIS TIME, DENIES ANY WANTS OR NEEDS, VSS, CALL LIGHT IN REACH
--- NOTE | 2019-09-19 15:00 | NUR ---
PT AWAKE AT THIS TIME, COFFEE GIVEN, NO OTHER NEEDS NOTED, WILL CON'T TO MONITOR
--- NOTE | 2019-09-19 18:08 | NUR ---
TRANSFER FROM ICU BY W/C. CALL LIGHT IN REACH. WILL CONT. PLAN OF CARE.
--- NOTE | 2019-09-19 19:10 | NUR ---
REPORT RECEIVED, WILL CONTIUE POC. PATIENT IS AAOX4, LYING IN SEMI-FOWLERS POSITION. NO S/S OF DISTRESS OBSERVED, RR EVEN AND UNLABORED ON RA. PIV TO RT AC, INFUSING NS@KVO. PATIENT DENIES NEEDS AT THIS TIME. CL IN REACH, BED LOCKED AND LOWERED. DROPLET PRECAUTIONS MAINTAINED. WILL CTM.
[2019-09-20] VITALS: BP 130/72
--- NOTE | 2019-09-20 02:27 | NUR ---
CONTRACT PREPARER LEFT TO GET PATIENT A BED SIDE COMMODE AND UPON ENTERING THE ROOM PATIENT WAS ON THE FLOOR. PATIENT SAYS HE DID NOT HIT HIS HEAD. SMALL SKIN TEAR NOTED TO LEFT ELBOW AND LEFT HAND KNUCKLES. HEAD PALPATED AND INSPECTED, NO OBVIOUS SIGN OF INJURY, PATIENT EXPRESSED NO PAIN. PATIENT VSS BP 156/76 HR 81 RR 22 O2 95% ON 2.5L NC. PATIENT ASSISTED BACK TO BED AND CLEANED. PAGED RENAL AT THIS TIME. CL IN REACH, BED LOCKED AND LOWERED. FALL ALARM ON. YELLOW GOWN, NON-SKID SOCKS ON.
--- NOTE | 2019-09-20 02:56 | NUR ---
STEPHEN BONILLA APN REPAGED AT THIS TIME.
--- NOTE | 2019-09-20 03:01 | NUR ---
SPOKE TO STEPHEN BONILLA APN. INFORMED HER OF PATIENS FALL AND STATUS. NO NEW ORDERS AT THIS TIME.
[2019-09-20 04:00] VITALS: BP 149/79
[2019-09-20 05:04] LABS: BASOPHILS 0.2 % (0-2); HEMATOCRIT 29.2 % (42.0-54.0); HEMOGLOBIN 8.9 g/dL (13.5-17.5); LYMPHOCYTES 3.2 % (15-50); MCH 28.7 pg (26.0-34.0); MCHC 30.5 g/dL (31.0-37.0); MCV 94.2 fL (80.0-100.0); MEAN PLATELET VOLUME 8.8 fL (7.4-10.4); MONOCYTES 3.4 % (2-11); NEUTROPHILS 91.2 % (40-80); PLATELET COUNT 253 10x3/uL (130-400); RDW 13.6 % (11.5-14.5)
[2019-09-20 05:15] LABS: WBC 13.7 10x3/uL (4.8-10.8)
[2019-09-20 05:50] LABS: ALBUMIN 1.8 g/dL (3.4-5.0); BILIRUBIN - TOTAL 0.44 mg/dL (0.2-1.3); CALCIUM 8.4 mg/dL (8.5-10.1); CARBON DIOXIDE 24.5 mmol/L (21.0-32.0); PROTEIN - SERUM 6.7 g/dL (6.4-8.2)
[2019-09-20 05:55] LABS: ANION GAP 15.3 mmol/L (8-16); CREATININE - SERUM 4.7 mg/dL (0.6-1.3); PHOSPHOROUS 4.8 mg/dL (2.5-4.9); POTASSIUM - SERUM 3.8 mmol/L (3.5-5.1)
--- NOTE | 2019-09-20 07:18 | NUR ---
ASSESSMENT DONE. DENIES NEEDS
[2019-09-20 08:10] VITALS: BP 137/70
--- NOTE | 2019-09-20 12:41 | NUR ---
I have reviewed this patient and I concur with the Shift Assessment completed by the Licensed Practical Nurse today this shift.
[2019-09-20 14:01] VITALS: BP 132/69
[2019-09-20 20:00] VITALS: BP 148/69
--- NOTE | 2019-09-20 20:00 | NUR ---
RESTIGN IN BED AROUSED EASILY, DENIES PAIN OR NEEDS AT THIS TIME, CALL LIGHT IN REACH, SEE SHIFT ASSESSMENT
[2019-09-21] VITALS: BP 151/73
[2019-09-21 04:00] VITALS: BP 138/65
[2019-09-21 09:05] VITALS: BP 156/70
[2019-09-21] MEDS ORDERED: LEVOFLOXACIN500 MG PO (11:53)
[2019-09-21] MEDS ORDERED: ASPIRIN325 MG PO (11:55)
[2019-09-21] MEDS ORDERED: PROAIR HFA8.5 G1 INH (12:01)
--- NOTE | 2019-09-21 12:27 | MORECARE ---
CASE MANAGEMENT DISCHARGE SUMMARY PATIENT: RAINER FOUNTAIN JR UNIT: [id number] ADM DATE: 09/13/19 AGE: 63 : 51 SEX: M ROOM/BED: D.2100 AUTHOR: URIEL ABREU PHYSICIAN: REFERRING PHYSICIAN: JESSIE PADILLA MD DATE OF SERVICE: 09/21/19 Discharge Plan Patient Name: RAINER FOUNTAIN Facility: [facility]:[place] : 1955 Planned Disposition: Home Anticipated Discharge Date: Discharge Date: Expected LOS: Initial Reviewer: [email or web address] Initial Review Date: 09/13/2019 Generated: 09/21/19 1:26 pm Comments DCP- Discharge Planning Updated by [id number]: Mary Henderson on 09/21/19 11:[address] Patient Name: RAINER FOUNTAIN Encounter No: [id number] : 1955 Primary Insurance: MEDICARE A & B Anticipated DC Date: Planned Disposition: Home External Planned Provider: : DCP follow-up note: Patient and family in agreement with discharge plan. No changes to plan. Mario Fern has seen and he is going to continue PD at home. Spouse states they do have home and portable oxygen and she is bringing portable for discharge. Case management will follow and assist as needed. Mary Henderson DCP- Discharge Planning Updated by [id number]: Zahira Drake on 09/18/19 6:[address] Patient Name: RAINER FOUNTAIN Admission Status: ER Accout number: [id number] Admission Date: 09-13-2019 : 1955 Admission Diagnosis:HEART FAILURE, UNSPECIFIED Attending: Jessie Padilla Current LOS: 5 Anticipated DC Date: Planned Disposition: Home Primary Insurance: MEDICARE A & B Discharge Planning Comments: CM met with patient to complete initial dc planning assessment. CM educated patient on the CM role and verbal consent given by patient to complete assessment. Patient lives at home with his where he is independent with his care. 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 Patient does PD at home. Patient denied known discharge needs at this time. CM will continue to follow and will assist as needed with dc plans/needs. Saw Sharpener: Zahira Drake Appended by Zahira Drake on 09/18/2019 19:18 CDT: JOURDAN notified Lani Carbajal that patient is inpatient. DCPIA - Discharge Planning Initial Assessment Updated by [id number]: Zahira Drake on 09/18/19 7:15 pm * Is the patient Alert and Oriented? Yes * How many steps to enter\exit or inside your home? * PCP GINGER * [facility] * Preadmission Environment Home with Family * ADLs Independent * Equipment Walker * List name and contact numbers for known caregivers / representatives who currently or will assist patient after discharge: MERCEDES FOUNTAIN - SPOUSE - [phone] * Verbal permission to speak to the caregivers and representatives has been obtained from the patient. Yes * Please name any agencies selected above. [facility] * Additional services required to return to the preadmission environment? No * Can the patient safely return to the preadmission environment? Yes * Has this patient been hospitalized within the prior 30 days at any hospital? No Coverage Notice Reviewer: [email or web address] Dionne Henderson Notice Issued Date-Time: 09/21/2019 12:19 Notice Type: IM Discharge Notice Notice Delivered To: Patient Relationship to Patient: Self Dermatological Surgeon Name: Delivery Method: PHONE - Phone Lauryn Days: Prior Verbal Notification: Recipient Understood Notice: Yes Recipient Signature: Med Rec Note Co-signed by Attending: Coverage Notice Comment: IMM explained and placed in MR. Given to patient per discharge nurse. He is in Isolation, protocol followed per Covid -19 Isolation protocol. Last DP export: 09/18/19 6:21 p Patient Name: RAINER FOUNTAIN Page 72898 at 1227 All edits/amendments must be made on the electronic document DICTATION DATE: 09/21/19 1226 CIVIL DRAFTING TECHNICIAN: CHRIST 09/21/19 1226 RPT#: [id number] DC DATE: STATUS: ADM IN [facility] [address] [place] [address] END OF REPORT
[2019-09-21 12:59] VITALS: BP 157/73
--- NOTE | 2019-09-23 16:19 | MORECARE ---
CASE MANAGEMENT DISCHARGE SUMMARY PATIENT: RAINER FOUNTAIN JR UNIT: [id number] ADM DATE: 09/13/19 AGE: 63 : 51 SEX: M ROOM/BED: D.210 AUTHOR: URIEL ABREU PHYSICIAN: REFERRING PHYSICIAN: JESSIE PADILLA MD DATE OF SERVICE: 09/23/19 Discharge Plan Patient Name: RAINER FOUNTAIN Facility: [facility]:[place] : 1955 Planned Disposition: Home Anticipated Discharge Date: Discharge Date: 09/21/2019 Expected LOS: 0 Initial Reviewer: [email or web address] Initial Review Date: 09/13/2019 Generated: 09/23/19 5:18 pm Comments DCP- Discharge Planning Updated by [id number]: Mary Santiago on 09/21/19 11:[address] Patient Name: RAINER FOUNTAIN Encounter No: [id number] : 1955 Primary Insurance: MEDICARE A & B Anticipated DC Date: Planned Disposition: Home External Planned Provider: : DCP follow-up note: Patient and family in agreement with discharge plan. No changes to plan. Mario Shirley has seen and he is going to continue PD at home. Spouse states they do have home and portable oxygen and she is bringing portable for discharge. Case management will follow and assist as needed. Mary Henderson DCP- Discharge Planning Updated by [email or web address]: Zahira Drake on 09/18/19 6:[address] Patient Name: RAINER FOUNTAIN Admission Status: ER Accout number: [id number] Admission Date: 09-13-2019 : 1955 Admission Diagnosis:HEART FAILURE, UNSPECIFIED Attending: Jessie Padilla Current LOS: 5 Anticipated DC Date: Planned Disposition: Home Primary Insurance: MEDICARE A & B Discharge Planning Comments: CM met with patient to complete initial dc planning assessment. CM educated patient on the CM role and verbal consent given by patient to complete assessment. Patient lives at home with his where he is independent with his care. 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 Patient does PD at home. Patient denied known discharge needs at this time. CM will continue to follow and will assist as needed with dc plans/needs. Poultry Farm Laborer: Zahira Drake Appended by Zahira Drake on 09/18/2019 19:18 CDT: JOURDAN notified Lani Carbajal that patient is inpatient. DCPIA - Discharge Planning Initial Assessment Updated by [email or web address]: Zahira Drake on 09/18/19 7:15 pm * Is the patient Alert and Oriented? Yes * How many steps to enter\exit or inside your home? * PCP GINGER * [facility] * Preadmission Environment Home with Family * ADLs Independent * Equipment Walker * List name and contact numbers for known caregivers / representatives who currently or will assist patient after discharge: MERCEDES FOUNTAIN - SPOUSE - [phone] * Verbal permission to speak to the caregivers and representatives has been obtained from the patient. Yes * Please name any agencies selected above. [facility] * Additional services required to return to the preadmission environment? No * Can the patient safely return to the preadmission environment? Yes * Has this patient been hospitalized within the prior 30 days at any hospital? No Coverage Notice Reviewer: [email or web address] Dionne Henderson Notice Issued Date-Time: 09/21/2019 12:19 Notice Type: IM Discharge Notice Notice Delivered To: Patient Relationship to Patient: Self Fisher Mussel Name: Delivery Method: PHONE - Phone Lauryn Days: Prior Verbal Notification: Recipient Understood Notice: Yes Recipient Signature: Noam Rec Note Co-signed by Attending: Coverage Notice Comment: IMM explained and placed in MR. Given to patient per discharge nurse. He is in Isolation, protocol followed per Covid -19 Isolation protocol. Last DP export: 09/21/19 11:27 a Patient Name: RAINER FOUNTAIN Page 76482 at 1619 All edits/amendments must be made on the electronic document DICTATION DATE: 09/23/191617 GUNCOTTON PACKER: CHRIST 09/23/191617 RPT#: [id number] DC DATE:09/21/19 STATUS: DIS IN [facility] [address] [place] [address] END OF REPORT
== END 2019-09-21 14:11 | disposition home or self-care (01) | DRG 208 ==
LOC: D.ER 14:13 → D.M2 18:22 → D.ICU 18:22 → D.M2 09-19 17:56
PROVIDERS: Emergency Medicine; Internal Medicine Nephrology; ADMIT Internal Medicine Nephrology; ATTEND Internal Medicine Nephrology
PROC: 5A1945Z Respiratory Ventilation, 24-96 Consecutive Hours (ICD-10-PCS; principal; 2019-09-14)
PROC: 0BH17EZ Insertion of Endotracheal Airway into Trachea, Via Natural or Artificial Opening (ICD-10-PCS; 2019-09-14)
PROC: 5A1D70Z Performance of Urinary Filtration, Intermittent, Less than 6 Hours Per Day (ICD-10-PCS; 2019-09-14)
DX: J15.6 Pneumonia due to other Gram-negative bacteria (principal); J96.21 Acute and chronic respiratory failure with hypoxia; I50.23 Acute on chronic systolic (congestive) heart failure; N18.6 End stage renal disease; J96.22 Acute and chronic respiratory failure with hypercapnia; J98.11 Atelectasis; J44.1 Chronic obstructive pulmonary disease with (acute) exacerbation; I13.2 Hypertensive heart and chronic kidney disease with heart failure and with stage 5 chronic kidney disease, or end stage renal disease; J44.0 Chronic obstructive pulmonary disease with (acute) lower respiratory infection; I24.8 Other forms of acute ischemic heart disease; E11.22 Type 2 diabetes mellitus with diabetic chronic kidney disease; K21.9 Gastro-esophageal reflux disease without esophagitis; J30.9 Allergic rhinitis, unspecified; I25.10 Atherosclerotic heart disease of native coronary artery without angina pectoris; E78.5 Hyperlipidemia, unspecified; F17.200 Nicotine dependence, unspecified, uncomplicated; D63.1 Anemia in chronic kidney disease